=== PATIENT | female | born 1950 | race Caucasian/White ===

== ENCOUNTER → 2017-04-12 09:40 | Outpatient (CLI) | payer MEDICAID, SELFPAY ==
--- NOTE | 2017-04-12 09:44 | CA_ITS ---
PROCEDURE: 2-D M-mode and color Doppler study INDICATIONS FOR THE TEST: Chest pain COPD Heart MurmurX Tobacco SmokingEX Palpitations Fatigue Syncope Edema HypertensionXDiabetes Mellitus Rheumatic Fever SOBXXDOEXObesityX HyperlipidemiaX Family History HD Additional History AI PATIENT INFORMATION HEIGHT: 63 WEIGHT:229 GENDER: Female B/P:110/60 2-D/M-MODE INTERPRETATION: 2-D MEASUREMENTS OBSERVED VALUES IN CMS Right Ventricular Dimension (RVDd) 2.1 Interventricular Septum (Thickness)(IVsd) 1.3 Left Ventricular Internal Dimensions(LVIDd) 5.2 Left Ventricular Posterior Wall (Thickness)(LVPWd) 1.4 Aortic Root 3.4 Aortic Cusp Separation 1.8 Left Atrial Dimensions (LAD) 4.0 2D 1. Left atrium is mildly enlarged, left ventricle is normal size, there is mild concentric left ventricular hypertrophy present, visually estimated ejection fraction 55% with no obvious regional wall motion abnormality. 2. The right atrium and right ventricle are normal size and contractility. 3. The aortic valve is thickened and calcified leaflet continue to display good mobility. 4. The mitral and tricuspid valves are grossly normal. 5. The pulmonic valve is poorly visualized. 6. No significant pericardial effusion noted. DOPPLER INTERROGATION: Doppler interrogation of the aortic, mitral and tricuspid valvular presence of mild to moderate aortic, mild mitral and tricuspid regurgitation, tricuspid regurgitant jet velocity insufficient for calculation of the right ventricular systolic pressure, grade 1 diastolic dysfunction seen with tissue Doppler evidence of raised left atrial pressure. CONCLUSION: 1. Mildly enlarged left atrium, normal left ventricular size, mild concentric left ventricular hypertrophy, visually estimated ejection fraction 55% with no obvious regional wall motion abnormality, grade 1 diastolic dysfunction seen with tissue Doppler evidence of raised left atrial pressure. 2. Thickened and calcified aortic valve without Doppler evidence of mild aortic stenosis, there is mild to moderate aortic insufficiency seen, mean gradient across valve is 10 mmHg. 3. Mild mitral and tricuspid regurgitation 4. No significant pericardial effusion noted.
== END ==
PROVIDERS: PCP Family Medicine Geriatric Medicine; Visit Provider Internal Medicine
DX: I25.10 Atherosclerotic heart disease of native coronary artery without angina pectoris (principal); I10 Essential (primary) hypertension; I35.1 Nonrheumatic aortic (valve) insufficiency
CPT/HCPCS: 93306

== ENCOUNTER → 2017-05-11 09:03 | Outpatient (CLI) | payer MEDICAID, SELFPAY ==
[2017-05-11 09:45] LABS: Alanine Aminotransferase 27 U/L (12-78); Albumin Level 3.6 gm/dL (3.4-5.0); Alkaline Phosphatase 108 U/L (46-116); Aspartate Amino Transferase 17 U/L (15-37); Bilirubin,Direct 0.2 mg/dL (0.0-0.2); Bilirubin,Total 0.6 mg/dL (0.2-1.0); Chol/HDL Ratio 1.5 (1-3.5); Cholesterol 130 mg/dL (140-200); HDL Cholesterol 88 mg/dL (29-89); LDL Cholesterol 33 mg/dL (0-130); Total Protein,Serum 7.1 gm/dL (6.4-8.2); Triglycerides 46 mg/dL (30-200); VLDL Cholesterol 9 mg/dL (0-40)
== END ==
PROVIDERS: Physician Assistant; Visit Provider Internal Medicine
DX: I25.10 Atherosclerotic heart disease of native coronary artery without angina pectoris (principal); I10 Essential (primary) hypertension; I35.1 Nonrheumatic aortic (valve) insufficiency
CPT/HCPCS: 36415; 80061; 80076

== ENCOUNTER → 2017-10-11 10:46 | Outpatient (CLI) | payer MEDICARE, SELFPAY ==
[2017-10-11 11:54] LABS: Anion Gap 11.2 mEq/L (5-15); Blood Urea Nitrogen 35 mg/dL (7-18); Calcium 9.2 mg/dL (8.5-10.1); Carbon Dioxide 29 mmol/L (21.0-32.0); Chloride 107 mmol/L (98-107); Creatinine,Serum 2.28 mg/dL (0.55-1.02); Estimated Glomerular Filt Rate 21 ml/min (>60); GFR (African American) 26 ML/MIN (>60); Glucose 126 mg/dL (74-106); Magnesium 2.6 mg/dL (1.4-2.2); Potassium 5.2 mmoL/L (3.5-5.1); Sodium 142 mmol/L (136-145)
== END ==
PROVIDERS: PCP Family Medicine Geriatric Medicine; Visit Provider Internal Medicine
DX: I50.30 Unspecified diastolic (congestive) heart failure (principal)
CPT/HCPCS: 36415; 80048; 83735; 83880

== ENCOUNTER → 2017-10-31 10:47 | Outpatient (CLI) | payer MEDICARE, SELFPAY ==
[2017-10-31 11:35] LABS: Anion Gap 8.7 mEq/L (5-15); Blood Urea Nitrogen 27 mg/dL (7-18); Calcium 8.9 mg/dL (8.5-10.1); Carbon Dioxide 31 mmol/L (21.0-32.0); Chloride 109 mmol/L (98-107); Creatinine,Serum 1.64 mg/dL (0.55-1.02); Estimated Glomerular Filt Rate 31 ml/min (>60); GFR (African American) 38 ML/MIN (>60); Glucose 128 mg/dL (74-106); Potassium 4.7 mmoL/L (3.5-5.1); Sodium 144 mmol/L (136-145)
== END ==
PROVIDERS: PCP Family Medicine; Visit Provider Physician Assistant
DX: E78.5 Hyperlipidemia, unspecified (principal); I11.9 Hypertensive heart disease without heart failure; I25.10 Atherosclerotic heart disease of native coronary artery without angina pectoris; I34.0 Nonrheumatic mitral (valve) insufficiency; I35.1 Nonrheumatic aortic (valve) insufficiency; I50.30 Unspecified diastolic (congestive) heart failure; K21.9 Gastro-esophageal reflux disease without esophagitis; R60.0 Localized edema
CPT/HCPCS: 36415; 80048; 83880

== ENCOUNTER → 2017-11-09 11:39 | Outpatient (CLI) | payer MEDICARE, SELFPAY ==
[2017-11-09 13:20] LABS: Anion Gap 10.5 mEq/L (5-15); Blood Urea Nitrogen 28 mg/dL (7-18); Calcium 8.7 mg/dL (8.5-10.1); Carbon Dioxide 31 mmol/L (21.0-32.0); Chloride 107 mmol/L (98-107); Estimated Glomerular Filt Rate 28 ml/min (>60); GFR (African American) 34 ML/MIN (>60); Glucose 112 mg/dL (74-106); Potassium 4.5 mmoL/L (3.5-5.1); Sodium 144 mmol/L (136-145)
== END ==
PROVIDERS: PCP Family Medicine; Visit Provider Urology
DX: E78.5 Hyperlipidemia, unspecified (principal); I11.9 Hypertensive heart disease without heart failure; I25.10 Atherosclerotic heart disease of native coronary artery without angina pectoris; I34.0 Nonrheumatic mitral (valve) insufficiency; I35.1 Nonrheumatic aortic (valve) insufficiency; I50.30 Unspecified diastolic (congestive) heart failure; K21.9 Gastro-esophageal reflux disease without esophagitis; R60.0 Localized edema
CPT/HCPCS: 36415; 80048; 83880

== ENCOUNTER → 2017-11-14 08:00 | Outpatient (CLI) | payer MEDICARE, SELFPAY ==
[2017-11-14 09:11] LABS: Anion Gap 10.3 mEq/L (5-15); Blood Urea Nitrogen 31 mg/dL (7-18); Carbon Dioxide 33 mmol/L (21.0-32.0); Chloride 106 mmol/L (98-107); Creatinine,Serum 1.58 mg/dL (0.55-1.02); Estimated Glomerular Filt Rate 33 ml/min (>60); GFR (African American) 40 ML/MIN (>60); Glucose 124 mg/dL (74-106); Potassium 4.3 mmoL/L (3.5-5.1); Sodium 145 mmol/L (136-145)
== END ==
PROVIDERS: PCP Family Medicine; Visit Provider Urology
DX: I11.9 Hypertensive heart disease without heart failure (principal); E78.5 Hyperlipidemia, unspecified; I25.10 Atherosclerotic heart disease of native coronary artery without angina pectoris; I34.0 Nonrheumatic mitral (valve) insufficiency; I35.1 Nonrheumatic aortic (valve) insufficiency; I50.30 Unspecified diastolic (congestive) heart failure; K21.9 Gastro-esophageal reflux disease without esophagitis; R60.0 Localized edema
CPT/HCPCS: 36415; 80048; 83880

== ENCOUNTER → 2017-11-22 10:11 | Outpatient (CLI) | payer MEDICARE, SELFPAY ==
--- NOTE | 2017-11-22 10:15 | XR_ITS ---
EXAM: XR lumbar spine 2-3V HISTORY: Low back pain, right hip pain ITS.REASON: x ORDERING PHYSICIAN: ALEIDA Sanchez PATIENT AGE: 67 years COMPARISON: None FINDINGS: Moderate to severe degenerative disc disease is present in the lower thoracic spine with anterior osteophytes. There is mild degenerative disc disease at L2-L3 L3-L4 and L4-L5 with severe degenerative disc disease at L5-S1. There is 4 mm anterolisthesis of L4 on L5. Facet hypertrophic changes are also present at L4-5 and L5-S1 consistent with facet arthritic change. No acute fracture or dislocation. No lytic or blastic change. There is mild levoscoliosis of the thoracolumbar spine. IMPRESSION: 1. Multilevel degenerative disc disease of the thoracic and lumbar spine as described above with 4 mm anterolisthesis of L4 on L5 2. Facet arthritic changes L4-5 and L5-S1
== END ==
PROVIDERS: PCP Family Medicine; Visit Provider Physician Assistant
DX: G62.9 Polyneuropathy, unspecified (principal)
CPT/HCPCS: 72100

== ENCOUNTER → 2017-12-27 10:37 | Outpatient (CLI) | payer MEDICARE, SELFPAY ==
[2017-12-27 12:32] LABS: Anion Gap 12.6 mEq/L (5-15); Blood Urea Nitrogen 38 mg/dL (7-18); Calcium 8.9 mg/dL (8.5-10.1); Carbon Dioxide 29 mmol/L (21.0-32.0); Chloride 106 mmol/L (98-107); Estimated Glomerular Filt Rate 32 ml/min (>60); GFR (African American) 39 ML/MIN (>60); Glucose 122 mg/dL (74-106); Potassium 4.6 mmoL/L (3.5-5.1); Sodium 143 mmol/L (136-145)
== END ==
PROVIDERS: Visit Provider Urology
DX: I11.9 Hypertensive heart disease without heart failure (principal); I25.10 Atherosclerotic heart disease of native coronary artery without angina pectoris; I50.30 Unspecified diastolic (congestive) heart failure; R06.02 Shortness of breath
CPT/HCPCS: 36415; 80048; 83880

== ENCOUNTER → 2018-02-01 10:06 | Outpatient (CLI) | payer MEDICARE, SELFPAY ==
[2018-02-01 13:22] LABS: Blood Urea Nitrogen 25 mg/dL (7-18); Calcium 8.8 mg/dL (8.5-10.1); Carbon Dioxide 30 mmol/L (21.0-32.0); Chloride 103 mmol/L (98-107); Creatinine,Serum 1.45 mg/dL (0.55-1.02); Estimated Glomerular Filt Rate 36 ml/min (>60); GFR (African American) 44 ML/MIN (>60); Glucose 113 mg/dL (74-106); Sodium 142 mmol/L (136-145)
== END ==
PROVIDERS: Visit Provider Internal Medicine
DX: R06.02 Shortness of breath; E78.5 Hyperlipidemia, unspecified; I25.10 Atherosclerotic heart disease of native coronary artery without angina pectoris; I50.30 Unspecified diastolic (congestive) heart failure; I51.9 Heart disease, unspecified; R60.0 Localized edema; Z95.5 Presence of coronary angioplasty implant and graft
CPT/HCPCS: 36415; 80048; 83880

== ENCOUNTER → 2018-02-09 15:47 | Outpatient (CLI) | payer MEDICARE, SELFPAY ==
[2018-02-09 17:26] LABS: Anion Gap 14.5 mEq/L (5-15); Blood Urea Nitrogen 42 mg/dL (7-18); Calcium 9.1 mg/dL (8.5-10.1); Carbon Dioxide 30 mmol/L (21.0-32.0); Chloride 104 mmol/L (98-107); Creatinine,Serum 2.07 mg/dL (0.55-1.02); Estimated Glomerular Filt Rate 24 ml/min (>60); GFR (African American) 29 ML/MIN (>60); Glucose 134 mg/dL (74-106); Potassium 4.5 mmoL/L (3.5-5.1); Sodium 144 mmol/L (136-145)
== END ==
PROVIDERS: Visit Provider Urology
DX: R06.02 Shortness of breath; E78.5 Hyperlipidemia, unspecified; I25.10 Atherosclerotic heart disease of native coronary artery without angina pectoris; I51.9 Heart disease, unspecified; Z95.5 Presence of coronary angioplasty implant and graft
CPT/HCPCS: 36415; 80048; 83880

== ENCOUNTER → 2018-03-01 10:29 | Outpatient (CLI) | payer MEDICARE, MEDICAID, SELFPAY ==
[2018-03-01 13:15] LABS: Anion Gap 12.6 mEq/L (5-15); Blood Urea Nitrogen 29 mg/dL (7-18); Calcium 8.7 mg/dL (8.5-10.1); Carbon Dioxide 30 mmol/L (21.0-32.0); Chloride 106 mmol/L (98-107); Creatinine,Serum 1.49 mg/dL (0.55-1.02); Estimated Glomerular Filt Rate 35 ml/min (>60); GFR (African American) 42 ML/MIN (>60); Glucose 98 mg/dL (74-106); Potassium 4.6 mmoL/L (3.5-5.1); Sodium 144 mmol/L (136-145)
== END ==
PROVIDERS: Visit Provider Nurse Practitioner Family
DX: I25.10 Atherosclerotic heart disease of native coronary artery without angina pectoris; E78.5 Hyperlipidemia, unspecified; I11.9 Hypertensive heart disease without heart failure; I34.0 Nonrheumatic mitral (valve) insufficiency; I35.1 Nonrheumatic aortic (valve) insufficiency; I50.30 Unspecified diastolic (congestive) heart failure; R06.00 Dyspnea, unspecified; R60.0 Localized edema; R94.31 Abnormal electrocardiogram [ECG] [EKG]
CPT/HCPCS: 36415; 80048

== ENCOUNTER → 2018-04-04 09:45 | Outpatient (CLI) | payer MEDICARE, MEDICAID, SELFPAY ==
[2018-04-04 11:14] LABS: Blood Urea Nitrogen 25 mg/dL (7-18); Calcium 9.1 mg/dL (8.5-10.1); Carbon Dioxide 33 mmol/L (21.0-32.0); Chloride 104 mmol/L (98-107); Creatinine,Serum 1.57 mg/dL (0.55-1.02); Estimated Glomerular Filt Rate 33 ml/min (>60); GFR (African American) 40 ML/MIN (>60); Glucose 86 mg/dL (74-106); Sodium 143 mmol/L (136-145)
== END ==
PROVIDERS: Visit Provider Nurse Practitioner Family
DX: I11.9 Hypertensive heart disease without heart failure (principal); I25.10 Atherosclerotic heart disease of native coronary artery without angina pectoris; N28.9 Disorder of kidney and ureter, unspecified; R60.0 Localized edema; Z95.5 Presence of coronary angioplasty implant and graft
CPT/HCPCS: 36415; 80048

== ENCOUNTER → 2018-04-11 12:29 | Outpatient (CLI) | payer MEDICARE, MEDICAID, SELFPAY ==
[2018-04-11 13:31] LABS: Anion Gap 10.9 mEq/L (5-15); Blood Urea Nitrogen 46 mg/dL (7-18); Calcium 8.9 mg/dL (8.5-10.1); Carbon Dioxide 31 mmol/L (21.0-32.0); Chloride 105 mmol/L (98-107); Creatinine,Serum 1.91 mg/dL (0.55-1.02); Estimated Glomerular Filt Rate 26 ml/min (>60); GFR (African American) 32 ML/MIN (>60); Glucose 117 mg/dL (74-106); Potassium 3.9 mmoL/L (3.5-5.1); Sodium 143 mmol/L (136-145)
== END ==
PROVIDERS: Visit Provider Urology
DX: I34.0 Nonrheumatic mitral (valve) insufficiency (principal); I50.30 Unspecified diastolic (congestive) heart failure; I51.9 Heart disease, unspecified
CPT/HCPCS: 36415; 80048

== ENCOUNTER → 2018-04-20 11:50 | Outpatient (CLI) | payer MEDICARE, MEDICAID, SELFPAY ==
[2018-04-20 12:52] LABS: Anion Gap 10.6 mEq/L (5-15); Blood Urea Nitrogen 34 mg/dL (7-18); Calcium 8.9 mg/dL (8.5-10.1); Carbon Dioxide 31 mmol/L (21.0-32.0); Chloride 106 mmol/L (98-107); Creatinine,Serum 1.61 mg/dL (0.55-1.02); Estimated Glomerular Filt Rate 32 ml/min (>60); GFR (African American) 39 ML/MIN (>60); Glucose 108 mg/dL (74-106); Potassium 4.6 mmoL/L (3.5-5.1); Sodium 143 mmol/L (136-145)
== END ==
PROVIDERS: Visit Provider Internal Medicine
DX: E78.5 Hyperlipidemia, unspecified (principal); G62.9 Polyneuropathy, unspecified; I25.10 Atherosclerotic heart disease of native coronary artery without angina pectoris; I34.0 Nonrheumatic mitral (valve) insufficiency; I35.1 Nonrheumatic aortic (valve) insufficiency; I50.30 Unspecified diastolic (congestive) heart failure; I51.89 Other ill-defined heart diseases; K21.9 Gastro-esophageal reflux disease without esophagitis; N28.9 Disorder of kidney and ureter, unspecified; R60.0 Localized edema; Z95.5 Presence of coronary angioplasty implant and graft; Z87.891 Personal history of nicotine dependence
CPT/HCPCS: 36415; 80048

== ENCOUNTER → 2018-08-02 13:37 | Outpatient (CLI) | payer MEDICARE, MEDICAID, SELFPAY ==
--- NOTE | 2018-08-02 13:38 | CA_ITS ---
PROCEDURE: 2-D M-mode and color Doppler study INDICATIONS FOR THE TEST: Chest pain COPD Heart Murmur+ Tobacco SmokingEX Palpitations Fatigue Syncope Edema Hypertension+Diabetes Mellitus Rheumatic Fever SOB+WYLIE Obesity+Hyperlipidemia Family History HD Additional History NUMBNESS ARMS, NEW ONSET AFIB, CAD PATIENT INFORMATION HEIGHT: 63 WEIGHT:244 GENDER: B/P:145/53 2-D/M-MODE INTERPRETATION: 2-D MEASUREMENTS OBSERVED VALUES IN CMS Right Ventricular Dimension (RVDd) 3.0 Interventricular Septum (Thickness)(IVsd) 1.6 Left Ventricular Internal Dimensions(LVIDd) 4.6 Left Ventricular Posterior Wall (Thickness)(LVPWd) 1.0 Aortic Root 3.5 Aortic Cusp Separation 2.2 Left Atrial Dimensions (LAD) 3.8 2D 1. Left atrium is mildly enlarged, left ventricle is normal size, there is mild concentric left ventricular hypertrophy, visually estimated ejection fraction 55% with no regional wall motion abnormality. 2. The right atrium and right ventricle are mildly enlarged with normal contractility. 3. The aortic valve is thickened and calcified leaflet continue to display mobility. 4. The mitral and tricuspid valve are grossly normal. 5. The pulmonic valve is poorly visualized. 6. No significant pericardial effusion noted. DOPPLER INTERROGATION: Doppler interrogation of the aortic, mitral and tricuspid valvular presence of moderate aortic, mild mitral and tricuspid regurgitation, tricuspid regurgitation jet velocity is inadequate for calculation of the right ventricular systolic pressure. Doppler evidence of impaired LV relaxation seen. CONCLUSION: 1. Mildly enlarged left atrium, normal left ventricular size, mild concentric left ventricular hypertrophy, visually estimated ejection fraction 55% with no regional wall motion abnormality, Doppler evidence of impaired LV relaxation seen. 2. Mildly enlarged right ventricle with normal contractility. 3. Moderate aortic, mild mitral and tricuspid regurgitation 4. No significant pericardial effusion noted.
--- NOTE | 2018-08-02 13:38 | CI_ITS ---
Cerebrovascular Exam Indications: 782.0 Disturbance of skin sensation. IMPRESSIONS 1. The bilateral vertebral arteries are patent with normal antegrade flow. 2. Study suggests less than 20% stenosis involving the right internal carotid artery. 3. Study suggests 50-69% stenosis involving the left internal carotid artery, lower end of scale. 4. Right hypoechoic nodules, consider thyroid ultrasound. Carotid duplex study. Complete study and Doppler flow study including spectral analysis, color and chiang scale imaging. Height: Height: 160cm. Height: 63in. Weight: Weight: 110.7kg. Weight: 243.5lb. Body mass index: BMI: 43.2kg/m^2. Body surface area: BSA: 2.28m^2. Location: Vascular laboratory. Patient status: Outpatient. Incidental findings: A thyroid cyst in the right lobe is noted incidentally. Tables: Arterial flow: + +--------+--------+ Location V sys V ed + +--------+--------+ Right CCA - proximal 163cm/s 31.4cm/s + +--------+--------+ Right CCA - distal 107cm/s 24.4cm/s + +--------+--------+ Right ECA 67.6cm/s -------- + +--------+--------+ Right ICA - proximal 112cm/s 33.8cm/s + +--------+--------+ Right ICA - mid 117cm/s 44.8cm/s + +--------+--------+ Right ICA - distal 112cm/s 33cm/s + +--------+--------+ Right vertebral 22.7cm/s -------- + +--------+--------+ Left CCA - proximal 133cm/s 21cm/s + +--------+--------+ Left CCA - distal 120cm/s 23.7cm/s + +--------+--------+ Left ECA 144cm/s -------- + +--------+--------+ Left ICA - proximal 155cm/s 34.3cm/s + +--------+--------+ Left ICA - mid 129cm/s 32.6cm/s + +--------+--------+ Left ICA - distal 82.7cm/s 23.4cm/s + +--------+--------+ Left vertebral 24.8cm/s -------- + +--------+--------+ Velocity ratios: + + + + + + Right, V sys Right, V ed Left, V sys Left, V ed + + + + + + Max ICA/dist CCA 1.09 1.84 1.29 1.45 + + + + + + (Report amended ) Electronically signed by: Dominick Desai [id number]
== END ==
PROVIDERS: Visit Provider Internal Medicine
DX: R20.0 Anesthesia of skin; R20.2 Paresthesia of skin; R06.00 Dyspnea, unspecified; I65.23 Occlusion and stenosis of bilateral carotid arteries
CPT/HCPCS: 93306; 93880

== ENCOUNTER → 2018-11-21 07:44 | Outpatient (CLI) | payer MEDICARE, MEDICAID, SELFPAY ==
--- NOTE | 2018-11-21 | CA_ITS ---
APPROVED REPORT Exam: Pharmacologic Technologist: Chel Haider Ht: 5 ft 0 in Wt: 246 lbs BSA: 2.04 m2 HR: 75 bpm BP: 160/51 mmHg Indications: Chest pain, CAD Medical History Medications: Isosorbide,,,,, Losartan,,,,, Pantoprazole,,,,, Atorvastatin,,,,, HCTZ,,,,, ElIQUIS,,,,, CarTIA XT,,,,, Stress Test Details Test: LEXISCAN HR Resting HR: 87 bpm Max Heart Rate (APMHR): 154 bpm Max HR Achieved: 104 bpm Target HR (85% APMHR): 130 bpm % of APMHR: 67 Recovery HR: 72 bpm BP Resting BP: 160.0/51.0 mmHg Max BP: 160.0/51.0 mmHg Recovery BP: 148.0/55.0 mmHg ECG Clinical Exercise duration: 04:00 min Highest Stage Achieved: Exercise capacity: 1.0 METs Stress ECG Conclusion Resting ECG: Normal sinus rhythm, PACs, PVC, right axis deviation, low voltage QRS. Aminophyline 100 mg slow IV given. Symptoms: Mild shortness of air, nausea, malaise, dizzy. No chest pain. Arrhythmias/Ectopy: Moderately frequent PACs and PVCs. ST-T Changes: No significant changes. Conclusion: Unremarkable Lexiscan Stress. Myoview images reported separately. Test Summary REST . . . . . . . Sitting REST 14:04 . . 87 . 160/ 51 . . Stage 1 . . . . . . . Myoview Injected Stage 1 01:00 . . 96 . . . . Stage 2 01:00 . . 103 . . . . Stage 3 . . . . . . . Nausea Stage 3 01:00 . . 95 . 125/ 51 . . Stage 4 01:00 . . 96 . 124/ 55 . Stop exercise at 04:00 RECOVERY 01:00 . . 91 . . . . RECOVERY 02:00 . . 86 . 141/ 54 . . RECOVERY 03:00 . . 76 . 141/ 54 . . RECOVERY 04:00 . . 73 . 141/ 54 . . RECOVERY 05:00 . . 79 . 128/ 50 . . RECOVERY 06:00 . . 71 . 128/ 50 . . RECOVERY 07:00 . . 76 . 148/ 55 . . RECOVERY 07:24 . . 73 . 148/ 55 . . Electronically signed by : Sanju Perez, 11/21/2018 20:27:38
--- NOTE | 2018-11-21 07:45 | NM_ITS ---
APPROVED REPORT Exam: Nuclear Stress Test Indication: chest pain, fatique Patient Location: Outpatient Stress Tech: Chel Haider [place] Tech:GERMAN Rosado RT(R)(N) Ht: 5 ft 0 in Wt: 246 lbs Bra Size: 48dd HR: 75 bpm BP: 160/51 mmHg BSA: 2.04 m2 History: chest pain, fatique Procedure: Patient received a 0.4 mg of intravenous Lexiscan, resting heart rate 75 bpm, resting blood pressure 160/51 mmHg, with Lexiscan maximum heart rate achived was 100 bpm which is Less than 85 % of the maximum predicted heart rate and blood pressure was 148/55 mmHg. With Lexiscan, patient denied any complaint of chest pain. Electrocardiogram Resting electro cardiogram showed sinus rhythm with premature atrial complex and ventricular complexes, nonspecific ST-T changes. With Lexiscan there is less than 1.[address] segment depression noted from the baseline EKG. The EKG portion of the Lexiscan Myoview is nondiagnostic. Cardiac Stress and Resting SPECT Images: Cardiac Stress and Resting SPECT images were obtained using technetium 99m Myoview 32.9 mCi stress and 10.88 mCi at rest. Gated SPECT with analysis of segmental wall motion and calculation of the ejection fraction also done. Cardiac stress and resting SPECT images show mild fixed defect in the anterior wall with normal contractility gated SPECT is likely secondary to soft tissue attenuation, no reversible ischemia seen. Computer derived ejection fraction is over 65% with no regional wall motion abnormality, right ventricule is normal size and contractility. Conclusion: 1. The EKG portion of the Lexiscan Myoview is nondiagnostic. 2. A mild fixed defect seen in the anterior wall with normal contractility gated SPECT is likely secondary to soft tissue attenuation, no reversible ischemia seen. Computer derived ejection fraction is over 65% with no regional wall motion abnormality, right ventricle is normal size and contractility. 3. Likely normal myocardial perfusion imaging. Electronically signed by : Sanju Perez, 11/21/2018 20:30:51
--- NOTE | 2018-11-21 10:27 | HMH.ITSHM ---
Current Home Medications as stated by this patient Ayleen Gonzalez or mortician supplies sales representative. [] cartia eliquis hydrochlort isosorb losartan atorvastatin pantoprazole
== END ==
PROVIDERS: PCP Family Medicine; Visit Provider Nurse Practitioner Family
DX: I25.10 Atherosclerotic heart disease of native coronary artery without angina pectoris (principal); R07.9 Chest pain, unspecified; Z95.5 Presence of coronary angioplasty implant and graft; R94.31 Abnormal electrocardiogram [ECG] [EKG]
CPT/HCPCS: 78452; 93017; A9502; J2785

== ENCOUNTER → 2019-02-05 10:49 | Outpatient (CLI) | payer MEDICARE, MEDICAID, SELFPAY ==
--- NOTE | 2019-02-05 10:49 | CA_ITS ---
APPROVED REPORT Planer Off Bearer: DIEGO Laterality: Bilateral Indications: stenosis Doppler Spectral Velocity Analysis ECA (R) 61.00/9.00 cm/s ECA (L) 110.80/8.70 cm/s dICA (R) 183.20/48.70 cm/s dICA (L) 102.30/25.90 cm/s Dina (R) 161.40/42.30 cm/s Dina (L) 168.50/43.20 cm/s pICA (R) 166.60/55.10 cm/s pICA (L) 163.60/41.70 cm/s dCCA (R) 95.20/16.00 cm/s dCCA (L) 121.10/17.60 cm/s pCCA (R) 120.80/24.60 cm/s pCCA (L) 115.20/15.30 cm/s Vert (R) 69.40/12.00 cm/s Vert (L) 59.70/22.20 cm/s ICA/CCA 1.93 ICA/CCA 1.39 Findings Duplex evaluation demonstrates stenosis of the right proximal internal carotid artery <20% with PSV <140 cm/sec, EDV <100 cm/sec, and IC/CC Ratio <4.0.Duplex evaluation demonstrates stenosis of the left proximal internal carotid artery in the range of 50-69% with PSV =140 cm/sec, EDV <100 cm/sec, and IC/CC Ratio <4.0. Conclusion Duplex evaluation demonstrates stenosis of the right proximal internal carotid artery <20% with PSV <140 cm/sec, EDV <100 cm/sec, and IC/CC Ratio <4.0.Duplex evaluation demonstrates stenosis of the left proximal internal carotid artery in the range of 50-69% with PSV =140 cm/sec, EDV <100 cm/sec, and IC/CC Ratio <4.0. Electronically signed by : Amari Galarza, 02/06/2019 11:01:58
== END ==
PROVIDERS: PCP Nurse Practitioner Family; Visit Provider Urology
DX: I65.23 Occlusion and stenosis of bilateral carotid arteries (principal)
CPT/HCPCS: 93880

== ENCOUNTER → 2019-03-08 14:38 | Outpatient (CLI) | payer MEDICARE, MEDICAID, SELFPAY ==
--- NOTE | 2019-03-08 14:38 | CT_ITS ---
PROCEDURE: CT HEAD/BRAIN WO CON CLINICAL INDICATION: rule out CVA COMPARISON: No exams were available for comparison TECHNIQUE: Axial images obtained. All CT scans at the facility use one or more dose reduction, viz: automated exposure control, ma/kV adjustment per patient size (including targeted exams where dose is matched to indication, i.e. head), or iterative reconstruction technique. FINDINGS: No midline shift, mass effect, intracranial hemorrhage, hydrocephalus, or extra-axial fluid collection is evident. An approximately 2 x 5 millimeter fat density along the anterior midline falx is most consistent with a benign lipoma. The calvarium has an unremarkable appearance. No mastoid effusion. No sinus air-fluid level. IMPRESSION: No acute intracranial finding Dictated by: Kamari Briones 03/08/2019 15:54 Electronically signed by Kamari Briones in [facility] 03/08/2019 15:54
== END ==
PROVIDERS: PCP Nurse Practitioner Family; Visit Provider Internal Medicine
DX: H53.8 Other visual disturbances (principal); I48.0 Paroxysmal atrial fibrillation; I65.23 Occlusion and stenosis of bilateral carotid arteries; R20.0 Anesthesia of skin; R41.0 Disorientation, unspecified
CPT/HCPCS: 70450

== ENCOUNTER → 2019-09-14 13:39 | Outpatient (CLI) | payer MEDICARE, MEDICAID, SELFPAY ==
--- NOTE | 2019-09-14 14:07 | US_ITS ---
PROCEDURE: US EXTREMITY LT LIMITED CLINICAL INDICATION: mass on arm Palpable area in the left upper arm. COMPARISON: No exams were available for comparison FINDINGS: A superficial ultrasound of the left upper arm was performed with real-time, static grayscale and color Doppler imaging technique. Corresponding to the area of palpable concern in the left upper arm a 3.9 x 1.7 x 3.7 centimeter mixed hypo/isoechoic relatively well-circumscribed non-specific soft tissue mass is seen with no demonstrable color Doppler vascular flow, probably a lipoma, although alternative etiologies not ruled out. 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 Recommend surgical consultation/biopsy for tissue diagnosis. Dictated by: Dann Hallman 09/14/2019 15:37 Electronically signed by Dann Hallman in [facility] 09/14/2019 15:37
== END ==
PROVIDERS: PCP Emergency Medicine; Visit Provider Physician Assistant
DX: R22.9 Localized swelling, mass and lump, unspecified (principal)
CPT/HCPCS: 76882

== ENCOUNTER → 2019-10-08 11:40 | Outpatient (CLI) | payer MEDICARE, MEDICAID, SELFPAY ==
[2019-10-08 12:49] LABS: Chloride 100 mmol/L (98-107); Sodium 140 mmol/L (136-145)
[2019-10-08 12:50] LABS: Potassium 3.6 mmoL/L (3.5-5.1)
[2019-10-08 12:52] LABS: Alanine Aminotransferase 13 U/L (12-78); Alkaline Phosphatase 123 U/L (38-126); Anion Gap 13.6 mEq/L (5-15); Aspartate Amino Transferase 18 U/L (14-36); Bilirubin,Indirect 0.6 mg/dL (0.0-0.9); Bilirubin,Total 0.6 mg/dl (0.2-1.3); Bilirubin,Unconjugated 0.6 mg/dL (0.0-1.1); Blood Urea Nitrogen 41 mg/dl (7-17); Calcium 9.6 mg/dl (8.4-10.2); Carbon Dioxide 30 mmol/L (22.0-30.0); Cholesterol 129 mg/dl (140-200); Estimated Glomerular Filt Rate 30 ml/min (>60); GFR (African American) 36 ML/MIN (>60); Glucose 108 mg/dl (74-100); Triglycerides 77 mg/dl (30-150); VLDL Cholesterol 15 mg/dL (0-40)
[2019-10-08 12:53] LABS: Albumin Level 4.1 g/dl (3.5-5.0); Chol/HDL Ratio 1.8 (1-3.5); HDL Cholesterol 73 mg/dl (40-60); Total Protein,Serum 6.8 g/dl (6.3-8.2)
[2019-10-08 13:04] LABS: Direct LDL Cholesterol 42.25 mg/dL (100-129)
== END ==
PROVIDERS: Visit Provider Urology
DX: E11.9 Type 2 diabetes mellitus without complications (principal); E66.9 Obesity, unspecified; G62.9 Polyneuropathy, unspecified; H91.90 Unspecified hearing loss, unspecified ear; I10 Essential (primary) hypertension; I25.10 Atherosclerotic heart disease of native coronary artery without angina pectoris; N28.9 Disorder of kidney and ureter, unspecified; Z79.84 Long term (current) use of oral hypoglycemic drugs
CPT/HCPCS: 36415; 80048; 80061; 80076

== ENCOUNTER → 2019-10-15 12:05 | Outpatient (CLI) | payer MEDICARE, MEDICAID, SELFPAY ==
--- NOTE | 2019-10-15 12:07 | CA_ITS ---
APPROVED REPORT Auto Repair Shop Manager: HENOK Laterality: Bilateral Study Quality: Good Indications: cyril Doppler Spectral Velocity Analysis dICA (R) 140.70/29.40 cm/s dICA (L) 130.90/25.30 cm/s Dina (R) 203.80/44.50 cm/s Dina (L) 115.10/21.90 cm/s pICA (R) 173.00/36.90 cm/s pICA (L) 97.40/21.90 cm/s dCCA (R) 104.20/21.30 cm/s dCCA (L) 84.30/9.60 cm/s pCCA (R) 86.70/23.10 cm/s pCCA (L) 91.90/14.40 cm/s Vert (R) 64.10/3.90 cm/s Vert (L) 102.80/26.80 cm/s ICA/CCA 2.00 ICA/CCA 1.60 Findings Duplex evaluation demonstrates stenosis of the right proximal internal carotid artery in the range of 50-69% with PSV =140 cm/sec, EDV <100 cm/sec, and IC/CC Ratio <4.0.Duplex evaluation demonstrates stenosis of the left proximal internal carotid artery <20% with PSV <140 cm/sec, EDV <100 cm/sec, and IC/CC Ratio <4.0.Antegrade flow seen bilateral vertebral arteries. Conclusion Duplex evaluation demonstrates stenosis of the right proximal internal carotid artery in the range of 50-69% with PSV =140 cm/sec, EDV <100 cm/sec, and IC/CC Ratio <4.0.Duplex evaluation demonstrates stenosis of the left proximal internal carotid artery <20% with PSV <140 cm/sec, EDV <100 cm/sec, and IC/CC Ratio <4.0.Antegrade flow seen bilateral vertebral arteries. Electronically signed by : Dominick Desai MD 10/15/2019 17:06:27
--- NOTE | 2019-10-15 14:16 | MR_ITS ---
PROCEDURE: MR HUMERUS LT WO CON CLINICAL INDICATION: lipoma LUMP ON LT UPPER HUMERUS WITH PAIN. PUT MARKER ON KNOT. PT WAS IN PAIN. SENT OVER BEST POSSIBLE IMAGES. PRIOR US 09-14-19 COMPARISON: US US EXTREMITY LT LIMITED from 09/14/2019 TECHNIQUE: Routine multiplanar multi echo sequences are performed without gadolinium enhancement. FINDINGS: Multi planar multi echo sequences are performed the left humerus in regards to a palpable mass. A marker is placed at the area of palpable concern. There is only fat signal intensity deep to the palpable area of concern consistent with a lipoma. No soft tissue mass or bony abnormality apparent. No abnormal fluid collection. IMPRESSION: Palpable abnormality corresponds to a lipoma. Dictated by: Dominick Desai MD 10/16/2019 12:16 Dominick Desai MD in [place] 10/16/2019 12:16
== END ==
PROVIDERS: PCP Emergency Medicine; Visit Provider Urology
DX: I65.23 Occlusion and stenosis of bilateral carotid arteries; D17.9 Benign lipomatous neoplasm, unspecified; I50.30 Unspecified diastolic (congestive) heart failure; E11.9 Type 2 diabetes mellitus without complications; E66.9 Obesity, unspecified; G62.9 Polyneuropathy, unspecified; H91.90 Unspecified hearing loss, unspecified ear; I25.10 Atherosclerotic heart disease of native coronary artery without angina pectoris; I48.91 Unspecified atrial fibrillation; N28.9 Disorder of kidney and ureter, unspecified; R20.0 Anesthesia of skin
CPT/HCPCS: 73218; 93880

== ENCOUNTER → 2019-11-09 10:34 | Outpatient (CLI) | payer MEDICARE, MEDICAID, SELFPAY ==
--- NOTE | 2019-11-09 10:40 | CA_ITS ---
APPROVED REPORT EXAM: Comprehensive 2D, Doppler, and color-flow Echocardiogram Carpet Yarn Winder Operator: Nu Vieyra RVT Ht: 5 ft 3 in Wt: 224lbs BSA: 2.03 BP: 1554/51 mmHg Indications: a-fib,murmur,soa,htn,obesity,ex smoker 2D Dimensions LVOT 1.99 cm (M/F) 1.5-2.5 M-Mode Dimensions RVDd 2.50 cm (0.9-2.6) LVDd 4.99 cm (3.5-5.7) LVDs 3.38 cm (3.5-5.7) IVSd 1.21 cm (0.6-1.1) PWd 0.56 cm (0.6-1.1) EF (Teich) 60.20% FS 32.30% EDV (Teich) 117.70 mL ESV (Teich) 46.80 mL LV Diastology E/A Ratio 0.78 Mitral Valve MV A Velocity 93.00 (40-130 cm/s) Left Ventricle Left atrium is mildly enlarged, left ventricle is normal size, mild concentric left ventricular hypertrophy, visually estimated ejection fraction 55% with no regional wall motion abnormality, grade 1 diastolic dysfunction seen without tissue Doppler evidence of raise left atrial pressure. Right Ventricle Right atrium and right ventricle are mildly enlarged with normal contractility. Aortic Valve Aortic valve is thickened and calcified, there is no aortic stenosis, there is moderate aortic insufficiency. Mitral Valve Mitral valve is grossly normal, there is mild mitral regurgitation. Tricuspid Valve Tricuspid valve is grossly normal, there is mild tricuspid regurgitation, tricuspid regurgitation jet velocity is inadequate for calculation of the right ventricular systolic pressure. Pulmonic Valve Pulmonic valve is poorly visualized. Great Vessels Aortic root is normal size. Pericardium No significant pericardial effusion noted. Conclusion 1. Mild biatrial enlargement, normal left ventricular size, mild concentric left ventricular hypertrophy, visually estimated ejection fraction 55% with no regional wall motion abnormality, grade 1 diastolic dysfunction seen without tissue Doppler evidence of raise left atrial pressure. 2. Mildly enlarged right ventricle with normal contractility. 3. Thickened and calcified aortic valve without aortic stenosis, there is moderate aortic insufficiency. 4. Mild mitral and tricuspid regurgitation. 5. No significant pericardial effusion noted. Electronically signed by : Sanju Perez, 11/09/2019 13:54:09
[2019-11-09 11:05] LABS: Anion Gap 11.3 mEq/L (5-15); Blood Urea Nitrogen 30 mg/dl (7-17); Calcium 9.8 mg/dl (8.4-10.2); Carbon Dioxide 28 mmol/L (22.0-30.0); Chloride 105 mmol/L (98-107); Estimated Glomerular Filt Rate 32 ml/min (>60); GFR (African American) 39 ML/MIN (>60); Glucose 124 mg/dl (74-100); Potassium 4.3 mmoL/L (3.5-5.1); Sodium 140 mmol/L (136-145)
== END ==
PROVIDERS: PCP Emergency Medicine; Visit Provider Nurse Practitioner Family
DX: I25.118 Atherosclerotic heart disease of native coronary artery with other forms of angina pectoris (principal); I35.1 Nonrheumatic aortic (valve) insufficiency; I48.0 Paroxysmal atrial fibrillation; I50.32 Chronic diastolic (congestive) heart failure
CPT/HCPCS: 36415; 80048; 93306

== ENCOUNTER → 2020-02-04 11:54 | Outpatient (CLI) | payer MEDICARE, MEDICAID, SELFPAY ==
[2020-02-04 13:25] LABS: Chloride 105 mmol/L (98-107); Potassium 4.8 mmoL/L (3.5-5.1); Sodium 140 mmol/L (136-145)
[2020-02-04 13:28] LABS: Anion Gap 12.8 mEq/L (5-15); Blood Urea Nitrogen 36 mg/dl (7-17); Carbon Dioxide 27 mmol/L (22.0-30.0); Estimated Glomerular Filt Rate 28 ml/min (>60); GFR (African American) 34 ML/MIN (>60)
[2020-02-04 13:29] LABS: Calcium 9.9 mg/dl (8.4-10.2); Glucose 125 mg/dl (74-100)
[2020-02-04 13:37] LABS: NT Pro Brain Natriuretic Pep. 2290 pg/mL (0-125)
== END ==
PROVIDERS: Visit Provider Urology
DX: E78.5 Hyperlipidemia, unspecified (principal); I25.10 Atherosclerotic heart disease of native coronary artery without angina pectoris; I35.1 Nonrheumatic aortic (valve) insufficiency; I48.91 Unspecified atrial fibrillation; I50.30 Unspecified diastolic (congestive) heart failure; I65.29 Occlusion and stenosis of unspecified carotid artery; K21.9 Gastro-esophageal reflux disease without esophagitis; Z95.5 Presence of coronary angioplasty implant and graft
CPT/HCPCS: 36415; 80048; 83880

== ENCOUNTER → 2020-02-11 10:32 | Outpatient (CLI) | payer MEDICARE, MEDICAID, SELFPAY ==
[2020-02-11 11:39] LABS: Chloride 106 mmol/L (98-107)
[2020-02-11 11:40] LABS: Potassium 5.1 mmoL/L (3.5-5.1); Sodium 140 mmol/L (136-145)
[2020-02-11 11:43] LABS: Anion Gap 11.1 mEq/L (5-15); Blood Urea Nitrogen 37 mg/dl (7-17); Calcium 9.8 mg/dl (8.4-10.2); Carbon Dioxide 28 mmol/L (22.0-30.0); Estimated Glomerular Filt Rate 30 ml/min (>60); GFR (African American) 36 ML/MIN (>60); Glucose 110 mg/dl (74-100)
== END ==
PROVIDERS: Visit Provider Urology
DX: E78.5 Hyperlipidemia, unspecified (principal); I11.9 Hypertensive heart disease without heart failure; I25.10 Atherosclerotic heart disease of native coronary artery without angina pectoris; I34.0 Nonrheumatic mitral (valve) insufficiency; I35.1 Nonrheumatic aortic (valve) insufficiency; I48.91 Unspecified atrial fibrillation; I50.30 Unspecified diastolic (congestive) heart failure; I65.29 Occlusion and stenosis of unspecified carotid artery
CPT/HCPCS: 36415; 80048

== ENCOUNTER → 2020-02-25 16:56 | Outpatient (CLI) | payer MEDICARE, MEDICAID, SELFPAY ==
[2020-02-25 17:21] LABS: Basophils # 0.1 K/mm3 (0-0.2); Basophils % 0.6 % (0.1-2.0); Chloride 105 mmol/L (98-107); Eosinophils # 0.3 K/mm3 (0.0-0.4); Eosinophils % 3.2 % (0.1-12.0); Hemoglobin 11.3 g/dL (12.2-16.2); Lymphocytes # 1.6 K/mm3 (0.7-4.5); Lymphocytes % 15.5 % (10-50); Mean Corpuscular HGB Conc 31.3 g/dL (31.8-35.4); Mean Corpuscular Hemoglobin 31.3 pg (27.0-31.2); Mean Platelet Volume 10.2 fl (7.4-10.4); Monocytes # 0.6 K/mm3 (0.1-1.0); Monocytes % 5.6 % (1.7-9.3); Neutrophils # 7.6 K/mm3 (1.8-7.8); Neutrophils % 75.1 % (37.0-80.0); Platelet Count 231 K/mm3 (142-424); Potassium 4.6 mmoL/L (3.5-5.1); Red Cell Distribution Width 13.5 % (11.5-17.5); Sodium 141 mmol/L (136-145); White Blood Count 10.2 K/mm3 (4.8-10.8)
[2020-02-25 17:23] LABS: Alanine Aminotransferase 23 U/L (12-78); Aspartate Amino Transferase 18 U/L (14-36); Blood Urea Nitrogen 33 mg/dl (7-17); Estimated Glomerular Filt Rate 35 ml/min (>60); GFR (African American) 42 ML/MIN (>60)
[2020-02-25 17:24] LABS: Albumin Level 4.1 g/dl (3.5-5.0); Albumin/Globulin Ratio 1.5 (1.1-1.8); Alkaline Phosphatase 116 U/L (38-126); Anion Gap 11.6 mEq/L (5-15); Bilirubin,Total 0.8 mg/dl (0.2-1.3); Calcium 9.7 mg/dl (8.4-10.2); Carbon Dioxide 29 mmol/L (22.0-30.0); Chol/HDL Ratio 1.7 (1-3.5); Cholesterol 114 mg/dl (140-200); Globulin 2.8 g/dL (1.3-3.2); Glucose 114 mg/dl (74-100); HDL Cholesterol 68 mg/dl (40-60); Total Protein,Serum 6.9 g/dl (6.3-8.2); Triglycerides 72 mg/dl (30-150); VLDL Cholesterol 14 mg/dL (0-40)
[2020-02-25 17:40] LABS: Direct LDL Cholesterol < 30.00 mg/dL (100-129)
[2020-02-25 17:52] LABS: Hemoglobin A1C 6.3 % (4.0-6.0)
[2020-02-25 17:55] LABS: 25-OH Vitamin D, Total 32.4 ng/mL (30-100)
[2020-02-25 17:56] LABS: Free T4 (Free Thyroxine) 1.25 ng/dl (0.78-2.19); Thyroid Stimulating Hormone 1.01 uIU/mL (0.465-4.68)
[2020-02-26 09:32] LABS: Iron 72 ug/dL (37-170)
[2020-02-26 09:42] LABS: Total Iron Binding Capacity 343 ug/dL (265-497)
[2020-02-26 10:42] LABS: Vitamin B12 540 pg/mL (239-931)
== END ==
PROVIDERS: Visit Provider Physician Assistant
DX: E11.9 Type 2 diabetes mellitus without complications (principal); E78.5 Hyperlipidemia, unspecified; N28.9 Disorder of kidney and ureter, unspecified; R60.0 Localized edema; R69 Illness, unspecified; J32.9 Chronic sinusitis, unspecified; R89.9 Unspecified abnormal finding in specimens from other organs, systems and tissues; Z68.41 Body mass index [BMI] 40.0-44.9, adult
CPT/HCPCS: 80053; 80061; 82043; 82306; 82607; 83036; 83540; 83550; 84439; 84443; 85025

== ENCOUNTER → 2020-03-19 11:12 | Outpatient (CLI) | payer MEDICARE, MEDICAID, SELFPAY ==
[2020-03-19 11:19] LABS: Microscopic, Urine URINE MICROSCOPIC (MICROSCOPIC)
[2020-03-19 11:48] LABS: Appearance,Urine CLEAR (Clear); Blood, Urine Negative (Negative); Color,Urine YELLOW (Yellow); Glucose,Urine (UA) Negative (Negative); Ketones,Urine Negative (Negative); Leukocyte Esterase,Urine TRACE (Negative); Nitrate,Urine Negative (Negative); PH,Urine 5.5 (5.0-8.5); Protein,Urine TRACE (Negative); Specific Gravity, Urine >= 1.030 (1.005-1.030); Urobilinogen,Urine 0.2 EU/dl (0.2)
[2020-03-19 12:05] LABS: Bilirubin,Urine 1+ (Negative)
[2020-03-19 12:16] LABS: Albumin Level 4.4 g/dl (3.5-5.0); Anion Gap 7.7 mEq/L (5-15); Blood Urea Nitrogen 37 mg/dl (7-17); Carbon Dioxide 29 mmol/L (22.0-30.0); Chloride 105 mmol/L (98-107); Estimated Glomerular Filt Rate 35 ml/min (>60); GFR (African American) 42 ML/MIN (>60); Glucose 132 mg/dl (74-100); Phosphorous 3.5 mg/dl (2.5-4.5); Potassium 4.7 mmoL/L (3.5-5.1); Sodium 137 mmol/L (136-145)
== END ==
PROVIDERS: Visit Provider Internal Medicine Nephrology
DX: I10 Essential (primary) hypertension (principal)
CPT/HCPCS: 36415; 80069; 81001

== ENCOUNTER → 2020-03-26 09:49 | Outpatient (CLI) | payer MEDICARE, MEDICAID, SELFPAY ==
--- NOTE | 2020-03-26 09:50 | CA_ITS ---
APPROVED REPORT Bench Worker Hollow Handle: Nu Vieyra RVT Laterality: Bilateral Study Quality: Adequate Indications: Carotid stenosis Risk Factors Hypertension: Doppler Spectral Velocity Analysis ECA (R) 82.30/10.60 cm/s ECA (L) 107.90/6.70 cm/s dICA (R) 91.70/24.70 cm/s dICA (L) 154.10/38.50 cm/s Dina (R) 151.80/37.40 cm/s Dina (L) 168.50/35.60 cm/s pICA (R) 182.00/15.00 cm/s pICA (L) 186.80/38.50 cm/s dCCA (R) 68.40/16.00 cm/s dCCA (L) 81.90/11.60 cm/s pCCA (R) 104.80/18.20 cm/s pCCA (L) 110.80/18.30 cm/s Vert (R) 37.60/9.60 cm/s Vert (L) 53.90/16.40 cm/s ICA/CCA 1.98 ICA/CCA 2.05 Findings Study suggests 50-69% stenosis of the right internal cartoid artery unchanged from the 10/15/19 study. Study suggests 50-69% stenosis of the left internal cartoid artery worsened from the study. Antegrade flow seen bilateral vertebral arteries. 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 Study suggests 50-69% stenosis of the left internal cartoid artery worsened from the study. Antegrade flow seen bilateral vertebral arteries. Electronically signed by : Dominick Desai MD 03/26/2020 14:43:12
== END ==
PROVIDERS: PCP Emergency Medicine; Visit Provider Urology
DX: E78.5 Hyperlipidemia, unspecified (principal); I11.9 Hypertensive heart disease without heart failure; I25.10 Atherosclerotic heart disease of native coronary artery without angina pectoris; I35.1 Nonrheumatic aortic (valve) insufficiency; I48.91 Unspecified atrial fibrillation; I50.30 Unspecified diastolic (congestive) heart failure; K21.9 Gastro-esophageal reflux disease without esophagitis; R09.89 Other specified symptoms and signs involving the circulatory and respiratory systems; Z95.5 Presence of coronary angioplasty implant and graft; I65.23 Occlusion and stenosis of bilateral carotid arteries
CPT/HCPCS: 93880

== ENCOUNTER → 2020-04-16 13:09 | Outpatient (CLI) | payer MEDICARE, MEDICAID, SELFPAY ==
[2020-04-16 13:15] LABS: Microscopic, Urine URINE MICROSCOPIC (MICROSCOPIC)
[2020-04-16 13:49] LABS: Appearance,Urine CLEAR (Clear); Bilirubin,Urine Negative (Negative); Blood, Urine Negative (Negative); Color,Urine YELLOW (Yellow); Glucose,Urine (UA) Negative (Negative); Ketones,Urine Negative (Negative); Leukocyte Esterase,Urine Negative (Negative); Nitrate,Urine Negative (Negative); Protein,Urine Negative (Negative); Specific Gravity, Urine 1.015 (1.005-1.030); Urobilinogen,Urine 0.2 EU/dl (0.2)
[2020-04-16 14:04] LABS: Squamous Epithelial Cell,Urine Occasional #/hpf (0-5)
[2020-04-16 14:10] LABS: Creatinine,Urine Random 97 mg/dL (Not Estab.)
[2020-04-16 14:14] LABS: Hematocrit 38.3 % (37.0-47.0); Hemoglobin 12.1 g/dL (12.2-16.2); Mean Corpuscular HGB Conc 31.7 g/dL (31.8-35.4); Mean Corpuscular Hemoglobin 29.8 pg (27.0-31.2); Platelet Count 229 K/mm3 (142-424); Red Blood Count 4.08 M/mm3 (4.20-5.40); Red Cell Distribution Width 12.4 % (11.5-17.5); White Blood Count 10.7 K/mm3 (4.8-10.8)
[2020-04-16 14:43] LABS: Alanine Aminotransferase 16 U/L (12-78); Albumin Level 4.4 g/dl (3.5-5.0); Albumin/Globulin Ratio 1.4 (1.1-1.8); Alkaline Phosphatase 135 U/L (38-126); Anion Gap 12.6 mEq/L (5-15); Aspartate Amino Transferase 21 U/L (14-36); Bilirubin,Total 0.9 mg/dl (0.2-1.3); Blood Urea Nitrogen 35 mg/dl (7-17); Carbon Dioxide 33 mmol/L (22.0-30.0); Chloride 100 mmol/L (98-107); Estimated Glomerular Filt Rate 32 ml/min (>60); GFR (African American) 39 ML/MIN (>60); Globulin 3.1 g/dL (1.3-3.2); Glucose 132 mg/dl (74-100); Potassium 3.6 mmoL/L (3.5-5.1); Sodium 142 mmol/L (136-145); Total Protein,Serum 7.5 g/dl (6.3-8.2); Uric Acid 9.4 mg/dl (2.5-6.2)
[2020-04-16 14:54] LABS: Intact Parathyroid Hormone 151.2 pg/mL (7.5-53.5)
[2020-04-16 14:58] LABS: 25-OH Vitamin D, Total 13.7 ng/mL (30-100)
[2020-04-16 15:12] LABS: Thyroid Stimulating Hormone 0.78 uIU/mL (0.465-4.68)
== END ==
PROVIDERS: Visit Provider Internal Medicine Nephrology
DX: N17.9 Acute kidney failure, unspecified (principal); N18.30 Chronic kidney disease, stage 3 unspecified; I48.20 Chronic atrial fibrillation, unspecified; I50.33 Acute on chronic diastolic (congestive) heart failure; E55.9 Vitamin D deficiency, unspecified
CPT/HCPCS: 36415; 80053; 81001; 82306; 82330; 82570; 83970; 84155; 84443; 84550; 85014; 85018; 85048; 85049

== ENCOUNTER → 2020-05-07 14:59 | Outpatient (CLI) | payer MEDICARE, MEDICAID, SELFPAY ==
--- NOTE | 2020-05-07 15:03 | US_ITS ---
PROCEDURE: US KIDNEY CLINICAL INDICATION: CKD COMPARISON: No exams were available for comparison FINDINGS: The right kidney is [id number]. No hydronephrosis, cortical thinning, or renal mass or perinephric fluid collection is evident. There is a 2 cm right renal cyst which appears benign The left kidney is [id number]. No hydronephrosis or renal mass or perinephric fluid collection is evident. There is a 1 cm left renal cyst. There is mild left-sided renal cortical thinning IMPRESSION: Small bilateral renal cysts. Mild left renal cortical thinning Dictated by: Dominick Desai MD 05/07/2020 16:44 Dominick Desai MD in [facility] 05/07/2020 16:44
[2020-05-07 15:12] LABS: Microscopic, Urine URINE MICROSCOPIC (MICROSCOPIC)
[2020-05-07 15:38] LABS: Appearance,Urine CLEAR (Clear); Bilirubin,Urine Negative (Negative); Blood, Urine Negative (Negative); Color,Urine YELLOW (Yellow); Glucose,Urine (UA) Negative (Negative); Ketones,Urine Negative (Negative); Leukocyte Esterase,Urine Negative (Negative); Nitrate,Urine Negative (Negative); Protein,Urine Negative (Negative); Specific Gravity, Urine 1.015 (1.005-1.030); Urobilinogen,Urine 0.2 EU/dl (0.2)
[2020-05-07 15:44] LABS: Creatinine,Urine Random 44 mg/dL (Not Estab.)
[2020-05-07 15:48] LABS: Basophils # 0.1 K/mm3 (0-0.2); Basophils % 0.7 % (0.1-2.0); Eosinophils # 0.3 K/mm3 (0.0-0.4); Hematocrit 35.4 % (37.0-47.0); Hemoglobin 11.6 g/dL (12.2-16.2); Lymphocytes # 2.3 K/mm3 (0.7-4.5); Lymphocytes % 21.9 % (10-50); Mean Corpuscular HGB Conc 32.9 g/dL (31.8-35.4); Mean Corpuscular Hemoglobin 29.7 pg (27.0-31.2); Mean Corpuscular Volume 90.1 fl (81-99); Mean Platelet Volume 9.3 fl (7.4-10.4); Monocytes # 0.8 K/mm3 (0.1-1.0); Monocytes % 7.3 % (1.7-9.3); Neutrophils # 6.9 K/mm3 (1.8-7.8); Platelet Count 271 K/mm3 (142-424); Red Blood Count 3.92 M/mm3 (4.20-5.40); Red Cell Distribution Width 12.5 % (11.5-17.5); White Blood Count 10.3 K/mm3 (4.8-10.8)
[2020-05-07 15:53] LABS: Bacteria,Urine Trace /lpf; WBC,Urine Occasional #/hpf (0-3)
[2020-05-07 16:40] LABS: Albumin Level 4.1 g/dl (3.5-5.0); Anion Gap 12.2 mEq/L (5-15); Blood Urea Nitrogen 36 mg/dl (7-17); Calcium 9.5 mg/dl (8.4-10.2); Carbon Dioxide 32 mmol/L (22.0-30.0); Chloride 97 mmol/L (98-107); Estimated Glomerular Filt Rate 25 ml/min (>60); GFR (African American) 30 ML/MIN (>60); Glucose 121 mg/dl (74-100); Phosphorous 4.1 mg/dl (2.5-4.5); Potassium 3.2 mmoL/L (3.5-5.1); Sodium 138 mmol/L (136-145)
[2020-05-07 16:52] LABS: Intact Parathyroid Hormone 152.1 pg/mL (7.5-53.5)
[2020-05-07 18:12] LABS: 25-OH Vitamin D, Total < 12.8 ng/mL (30-100)
== END ==
PROVIDERS: PCP Emergency Medicine; Visit Provider Internal Medicine Nephrology
DX: N18.30 Chronic kidney disease, stage 3 unspecified (principal)
CPT/HCPCS: 36415; 76770; 80069; 81001; 82306; 82570; 83970; 84155; 85025

== ENCOUNTER → 2020-05-19 09:44 | Outpatient (POV) | payer MEDICARE, MEDICAID, SELFPAY | PROVIDERS: Visit Provider Internal Medicine Nephrology | DX: Z00.00 Encounter for general adult medical examination without abnormal findings (principal) ==

== ENCOUNTER → 2020-09-08 13:53 | Outpatient (CLI) | payer MEDICARE, MEDICAID, SELFPAY ==
[2020-09-08 15:00] LABS: Anion Gap 12.9 mEq/L (5-15); Blood Urea Nitrogen 28 mg/dl (7-17); Calcium 8.8 mg/dl (8.4-10.2); Carbon Dioxide 33 mmol/L (22.0-30.0); Chloride 101 mmol/L (98-107); Estimated Glomerular Filt Rate 30 ml/min (>60); GFR (African American) 36 ML/MIN (>60); Glucose 115 mg/dl (74-100); Potassium 3.9 mmoL/L (3.5-5.1); Sodium 143 mmol/L (136-145)
== END ==
PROVIDERS: Visit Provider Emergency Medicine
DX: E11.9 Type 2 diabetes mellitus without complications (principal); Z79.84 Long term (current) use of oral hypoglycemic drugs
CPT/HCPCS: 80048

== ENCOUNTER → 2020-09-22 09:56 | Outpatient (CLI) | payer MEDICARE, MEDICAID, SELFPAY ==
[2020-09-22 10:27] LABS: Creatinine,Urine Random 53 mg/dL (Not Estab.)
[2020-09-22 10:30] LABS: Microalbumin/Creatinine Ratio 11.5
[2020-09-22 11:19] LABS: 25-OH Vitamin D, Total 37.3 ng/mL (30-100)
[2020-09-22 11:42] LABS: Blood Urea Nitrogen 29 mg/dl (7-17); Calcium 8.9 mg/dl (8.4-10.2); Carbon Dioxide 33 mmol/L (22.0-30.0); Chloride 98 mmol/L (98-107); Estimated Glomerular Filt Rate 35 ml/min (>60); GFR (African American) 42 ML/MIN (>60); Glucose 116 mg/dl (74-100); Sodium 140 mmol/L (136-145)
== END ==
PROVIDERS: Visit Provider Internal Medicine Nephrology
DX: N18.30 Chronic kidney disease, stage 3 unspecified (principal)
CPT/HCPCS: 36415; 80069; 82043; 82306; 82570

== ENCOUNTER → 2020-09-26 08:25 | Outpatient (CLI) | payer MEDICARE, MEDICAID, SELFPAY ==
--- NOTE | 2020-09-26 08:28 | XR_ITS ---
PROCEDURE: XR DEXA AXIAL SKELETON CLINICAL HISTORY: HYPERPARATHYROIDISM,POST MENOPAUSAL COMPARISON: No exams were available for comparison FINDINGS: The right hip BMD is 0.607 with a T-score of -2.2. The left hip BMD is 0.612 neck with a T-score of -2.7. The lumbar spine BMD is 1.077 with a T-score of 0.3. IMPRESSION: This patient is considered osteoporotic according to the World Health Organization criteria. Fracture risk is high. Treatment is advised. Based on these results a follow-up exam is recommended in 1 year. Dictated by: Dominick Desai MD 09/26/2020 16:47 Dominick Desai MD in [facility] 09/26/2020 16:47
== END ==
PROVIDERS: PCP Emergency Medicine; Visit Provider Internal Medicine Nephrology
DX: E21.3 Hyperparathyroidism, unspecified (principal); Z78.0 Asymptomatic menopausal state
CPT/HCPCS: 77080

== ENCOUNTER → 2020-10-13 13:42 | Outpatient (POV) | payer MEDICARE, MEDICAID, SELFPAY | PROVIDERS: Visit Provider Internal Medicine Nephrology | DX: Z00.00 Encounter for general adult medical examination without abnormal findings (principal) ==

== ENCOUNTER → 2020-11-04 09:17 | Outpatient (CLI) | payer MEDICARE, MEDICAID, SELFPAY ==
--- NOTE | 2020-11-04 09:18 | CA_ITS ---
APPROVED REPORT Medical Anthropology Director: Nu Vieyra RVT Laterality: Bilateral Study Quality: Good Indications: Carotid stenosis Risk Factors Hypertension: Doppler Spectral Velocity Analysis ECA (R) 105.00/ cm/s ECA (L) 97.40/ cm/s dICA (R) 138.00/40.90 cm/s dICA (L) 206.00/66.00 cm/s Dina (R) 170.00/45.60 cm/s Dina (L) 186.00/37.70 cm/s pICA (R) 152.00/45.60 cm/s pICA (L) 153.00/32.20 cm/s dCCA (R) 107.00/25.10 cm/s dCCA (L) 91.10/14.90 cm/s pCCA (R) 103.00/18.90 cm/s pCCA (L) 108.00/11.80 cm/s Vert (R) 44.80/13.40 cm/s Vert (L) 44.80/14.10 cm/s ICA/CCA 1.58 ICA/CCA 2.26 Findings Study suggests 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 Study suggests 50-69% stenosis of the left internal cartoid artery. Antegrade flow seen bilateral vertebral arteries. 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 Study suggests 50-69% stenosis of the left internal cartoid artery. Antegrade flow seen bilateral vertebral arteries. Electronically signed by : Dominick Desai MD 11/04/2020 17:29:01
--- NOTE | 2020-11-04 09:18 | CA_ITS ---
APPROVED REPORT EXAM: Comprehensive 2D, Doppler, and color-flow Echocardiogram Cementer Machine Joiner: IMAN Ferrera, RVS Ht: 5 ft 3 in Wt: 222lbs BSA: 2.02 BP: 133/57 mmHg Rhythm: Atrial Fibrillation Indications: SOA. Murmur, Afib, CAD-stent, Post-chemo, Hepatitis Echo Enhancing Agent Comments: Large body habitus. 2D Dimensions IVSd 1.21 cm LVEF (Visual) 53.90 % PWd 1.12 cm LA Volume 69.30 mL LVDd 4.97 cm LA Volume Index 34.30 mL/m2 (M/F) 16-34 LVDs 3.58 cm LVOT 3.82 cm (M/F) 1.5-2.5 M-Mode Dimensions LA Diam 4.40 cm (1.9-4.0) Ao Diam 3.39 cm (2.0-3.7) TAPSE 2.11 (<1.7) LV Diastology E Decel Time 267.00 (160-240 msec) E/A Ratio 1.44 MED E' 7.30 (< 7 cm/sec) MED A' 3.20 cm/s E'/MED E' Ratio 18.99 (>14) LAT E' 10.60 (<10 cm/sec) LAT A' 4.90 cm/s E/LAT E' Ratio 13.08 (>14) Aortic Valve LVOT Max 120.00 (70-110 cm/s) LVOT VTI 25.94 cm AoV Peak Juliocesar. 240.00 (50-130 cm/s) AI PHT 554.00 ms AO Peak GR. 23.10 mmHg AO Mean GR. 11.60 (<5 mmHg) AO VTI 55.42 (18-25 cm) ED (VTI) 5.36 (2.5-4.5 cm2) Mitral Valve MV E Max Juliocesar. 139.00 (40-130 cm/s) MV A Velocity 96.00 (40-130 cm/s) E/A Ratio 1.44 MV Decel. Time 267.00 (160-240 ms) MV PHT 78.00 ms Pulmonary Valve PV Peak Velocity 217.00 (50-150 cm/s) AL End VMAX 209.00 cm/s Tricuspid Valve TR P. Velocity 272.00 cm/s RAP Estimate 10.00 mmHg RVSP 39.60 mmHg Left Ventricle Technically difficult study because of the patient factors and poor acoustic windows. Left atrium is mildly enlarged, left ventricle is normal size, mild concentric left ventricular hypertrophy, visually estimated ejection fraction 55% with no regional wall motion abnormality, diastolic parameters are inconclusive. Right Ventricle Right atrium and right ventricle mildly enlarged with normal contractility. Aortic Valve Aortic valve is thickened and calcified with mild aortic stenosis, there is moderate aortic insufficiency, mean gradient across valve is 12 mmHg. Valve area is not accurately calculated. Mitral Valve Mitral valve leaflets are minimally thickened, there is mild mitral regurgitation. Tricuspid Valve Tricuspid grossly normal, there is mild tricuspid regurgitation, tricuspid regurgitation jet velocity is inadequate for calculation of the right ventricular systolic pressure. Pulmonic Valve Pulmonic valve is poorly visualized. Great Vessels Aortic root is normal size. Pericardium No significant pericardial effusion noted. Conclusion 1. Mildly enlarged left atrium, normal left ventricular size, mild concentric left ventricular hypertrophy, visually estimated ejection fraction 55% with no regional wall motion abnormality, diastolic parameters are inconclusive. 2. Thickened and calcified aortic valve with mild aortic stenosis, there is moderate aortic insufficiency. 3. Mild mitral and tricuspid regurgitation. 4. No significant pericardial effusion noted. Electronically signed by : Sanju Perez MD 11/04/2020 19:27:59
== END ==
PROVIDERS: PCP Emergency Medicine; Visit Provider Urology
DX: R20.0 Anesthesia of skin; I35.1 Nonrheumatic aortic (valve) insufficiency; R06.02 Shortness of breath; I65.23 Occlusion and stenosis of bilateral carotid arteries
CPT/HCPCS: 93306; 93880

== ENCOUNTER → 2020-12-08 07:37 | Outpatient (CLI) | payer MEDICARE, MEDICAID, SELFPAY | PROVIDERS: PCP Emergency Medicine; Visit Provider Ophthalmology | DX: Z01.812 Encounter for preprocedural laboratory examination (principal); Z11.52 Encounter for screening for COVID-19 | CPT/HCPCS: C9803; U0003; U0005 ==

== ENCOUNTER 2020-12-09 06:58 | Day surgery (SDC) | payer MEDICARE, MEDICAID, SELFPAY ==
[2020-12-08 10:31] VITALS: BMI 42.3
[2020-12-09] VITALS (7 sets, daily range): BP systolic 143–169; BP diastolic 64–78; PULSE 70–92; RESP 18; TEMP 36.6–36.8; O2SAT 96–99
== END 2020-12-09 09:15 | disposition home or self-care (01) ==
LOC: OR 06:59
PROVIDERS: PCP Emergency Medicine; Visit Provider Ophthalmology
DX: H25.813 Combined forms of age-related cataract, bilateral (principal); H53.149 Visual discomfort, unspecified; H02.831 Dermatochalasis of right upper eyelid; H02.834 Dermatochalasis of left upper eyelid; I10 Essential (primary) hypertension; Z88.0 Allergy status to penicillin; Z88.1 Allergy status to other antibiotic agents
CPT/HCPCS: 66984; V2632

== ENCOUNTER → 2020-12-22 09:07 | Outpatient (CLI) | payer MEDICARE, MEDICAID, SELFPAY | PROVIDERS: Visit Provider Ophthalmology | DX: Z01.812 Encounter for preprocedural laboratory examination (principal); Z11.52 Encounter for screening for COVID-19 | CPT/HCPCS: C9803; U0003; U0005 ==

== ENCOUNTER 2020-12-23 08:52 | Day surgery (SDC) | payer MEDICARE, MEDICAID, SELFPAY ==
[2020-12-19 12:30] VITALS: BMI 41.1
[2020-12-23 09:57] VITALS: BP 135/57; PULSE 84; RESP 18; TEMP 36.6; O2SAT 98
[2020-12-23 11:23] VITALS: BP 144/65; PULSE 84; RESP 18; O2SAT 98
[2020-12-23 11:28] VITALS: BP 152/70; PULSE 82; RESP 18; O2SAT 100
[2020-12-23 11:33] VITALS: BP 150/65; PULSE 84; RESP 18; O2SAT 100
[2020-12-23 11:38] VITALS: BP 131/63; PULSE 88; RESP 18; O2SAT 100
[2020-12-23 11:45] VITALS: BP 155/75; PULSE 75; RESP 16; TEMP 36.7; O2SAT 98
[2021-11-12 10:54] LABS: POC Glucose,Bedside 106 (70-110)
== END 2020-12-23 11:55 | disposition home or self-care (01) ==
LOC: OR 08:54
PROVIDERS: PCP Emergency Medicine; Visit Provider Ophthalmology
DX: H26.9 Unspecified cataract (principal); H35.52 Pigmentary retinal dystrophy; H50.15 Alternating exotropia; E11.9 Type 2 diabetes mellitus without complications; I48.91 Unspecified atrial fibrillation; I25.10 Atherosclerotic heart disease of native coronary artery without angina pectoris; K21.9 Gastro-esophageal reflux disease without esophagitis; E78.5 Hyperlipidemia, unspecified; Z79.899 Other long term (current) drug therapy; Z95.5 Presence of coronary angioplasty implant and graft; Z88.6 Allergy status to analgesic agent; Z88.0 Allergy status to penicillin; Z88.7 Allergy status to serum and vaccine
CPT/HCPCS: 66984; 82962; V2632

== ENCOUNTER → 2020-12-31 18:49 | Outpatient (CLI) | payer MEDICARE, MEDICAID, SELFPAY ==
[2020-12-31 19:13] LABS: Basophils # 0.1 K/mm3 (0-0.2); Eosinophils # 0.4 K/mm3 (0.0-0.4); Eosinophils % 4.3 % (0.1-12.0); Hematocrit 37.8 % (37.0-47.0); Hemoglobin 12.1 g/dL (12.2-16.2); Lymphocytes # 1.8 K/mm3 (0.7-4.5); Mean Corpuscular Hemoglobin 29.1 pg (27.0-31.2); Mean Corpuscular Volume 90.9 fl (81-99); Monocytes # 0.6 K/mm3 (0.1-1.0); Neutrophils # 6.6 K/mm3 (1.8-7.8); Neutrophils % 69.8 % (37.0-80.0); Platelet Count 237 K/mm3 (142-424); Red Blood Count 4.16 M/mm3 (4.20-5.40); Red Cell Distribution Width 13.8 % (11.5-17.5); White Blood Count 9.4 K/mm3 (4.8-10.8)
[2020-12-31 19:41] LABS: Hemoglobin A1C 6.5 % (4.0-6.0)
[2020-12-31 20:20] LABS: Alanine Aminotransferase 15 U/L (12-78); Albumin Level 4.1 g/dl (3.5-5.0); Albumin/Globulin Ratio 1.5 (1.1-1.8); Alkaline Phosphatase 156 U/L (38-126); Anion Gap 13.5 mEq/L (5-15); Aspartate Amino Transferase 20 U/L (14-36); Bilirubin,Total 0.6 mg/dl (0.2-1.3); Blood Urea Nitrogen 28 mg/dl (7-17); Calcium 8.6 mg/dl (8.4-10.2); Carbon Dioxide 32 mmol/L (22.0-30.0); Chloride 99 mmol/L (98-107); Chol/HDL Ratio 1.9 (1-3.5); Cholesterol 140 mg/dl (140-200); Estimated Glomerular Filt Rate 35 ml/min (>60); GFR (African American) 42 ML/MIN (>60); Globulin 2.8 g/dL (1.3-3.2); Glucose 109 mg/dl (74-100); HDL Cholesterol 72 mg/dl (40-60); Potassium 4.5 mmoL/L (3.5-5.1); Sodium 140 mmol/L (136-145); Total Protein,Serum 6.9 g/dl (6.3-8.2); Triglycerides 84 mg/dl (30-150); VLDL Cholesterol 17 mg/dL (0-40)
[2020-12-31 20:31] LABS: Direct LDL Cholesterol 49.16 mg/dL (100-129)
[2020-12-31 20:39] LABS: Free T4 (Free Thyroxine) 1.75 ng/dl (0.78-2.19)
[2020-12-31 20:53] LABS: Thyroid Stimulating Hormone 0.97 uIU/mL (0.465-4.68)
== END ==
PROVIDERS: Visit Provider Emergency Medicine
DX: E11.9 Type 2 diabetes mellitus without complications (principal); Z79.899 Other long term (current) drug therapy; Z79.84 Long term (current) use of oral hypoglycemic drugs
CPT/HCPCS: 80053; 80061; 83036; 84439; 84443; 85025

== ENCOUNTER → 2021-04-01 14:31 | Outpatient (CLI) | payer MEDICARE, MEDICAID, SELFPAY | PROVIDERS: Visit Provider Physician Assistant | DX: N39.0 Urinary tract infection, site not specified (principal); R41.0 Disorientation, unspecified | CPT/HCPCS: 87086 ==

== ENCOUNTER → 2021-04-20 09:28 | Outpatient (POV) | payer MEDICARE, MEDICAID, SELFPAY | PROVIDERS: Visit Provider Internal Medicine Nephrology | DX: Z00.00 Encounter for general adult medical examination without abnormal findings (principal) ==

== ENCOUNTER → 2021-04-20 10:08 | Outpatient (CLI) | payer MEDICARE, MEDICAID, SELFPAY ==
[2021-04-20 11:19] LABS: Albumin Level 4.2 g/dl (3.5-5.0); Anion Gap 14.4 mEq/L (5-15); Blood Urea Nitrogen 29 mg/dl (7-17); Calcium 8.7 mg/dl (8.4-10.2); Carbon Dioxide 29 mmol/L (22.0-30.0); Chloride 100 mmol/L (98-107); Estimated Glomerular Filt Rate 41 ml/min (>60); GFR (African American) 49 ML/MIN (>60); Glucose 141 mg/dl (74-100); Phosphorous 3.6 mg/dl (2.5-4.5); Potassium 3.4 mmoL/L (3.5-5.1); Sodium 140 mmol/L (136-145)
[2021-04-20 11:32] LABS: Intact Parathyroid Hormone 305.6 pg/mL (7.5-53.5)
[2021-04-20 11:36] LABS: 25-OH Vitamin D, Total 18.9 ng/mL (30-100)
[2021-04-23 14:19] LABS: Tandem-R Ostase 16.2 ug/L (.)
[2021-04-30 20:21] LABS: C-Telopeptide Serum 355 pg/mL (.)
== END ==
PROVIDERS: Visit Provider Internal Medicine Nephrology
DX: N18.32 Chronic kidney disease, stage 3b (principal); M81.0 Age-related osteoporosis without current pathological fracture
CPT/HCPCS: 36415; 80069; 82306; 82523; 83970; 84080

== ENCOUNTER → 2021-05-25 12:54 | Outpatient (CLI) | payer MEDICARE, MEDICAID, SELFPAY ==
--- NOTE | 2021-05-25 12:56 | CA_ITS ---
APPROVED REPORT EXAM: Comprehensive 2D, Doppler, and color-flow Echocardiogram Sales Trainee: IMAN Ferrera, RVS Ht: 5 ft 2 in Wt: 224lbs BSA: 2.01 BP: 133/73 mmHg Indications: CAD, AI, MR, PI, TR, PAF, MURMUR, ABN EKG 2D Dimensions IVSd 1.01 cm LVEF (Visual) 66.10 % PWd 1.13 cm LA Volume 70.60 mL LVDd 5.41 cm LA Volume Index 35.10 mL/m2 (M/F) 16-34 LVDs 3.42 cm Aortic Root 3.15 cm Left Atrium 3.84 cm LVOT 2.23 cm (M/F) 1.5-2.5 M-Mode Dimensions RVDd 1.82 cm (0.9-2.6) LA Diam 4.04 cm (1.9-4.0) LVDd 6.34 cm (3.5-5.7) Ao Diam 3.54 cm (2.0-3.7) LVDs 3.99 cm (3.5-5.7) IVSd 1.14 cm (0.6-1.1) PWd 0.80 cm (0.6-1.1) EF (Teich) 65.90% EPSs 0.80 cm FS 37.10% EDV (Teich) 204.10 mL TAPSE 2.26 (<1.7) ESV (Teich) 69.60 mL LV Diastology E Decel Time 233.00 (160-240 msec) E/A Ratio 3.41 MED E' 11.60 (< 7 cm/sec) MED A' 5.40 cm/s E'/MED E' Ratio 17.44 (>14) LAT E' 9.10 (<10 cm/sec) LAT A' 4.60 cm/s E/LAT E' Ratio 22.23 (>14) Pulm Vein s 18.00 cm/sec Pulm Vein d 30.00 cm/sec Ar-A Duration 107.00 msec Aortic Valve LVOT Max 146.00 (70-110 cm/s) LVOT VTI 33.35 cm AoV Peak Juliocesar. 236.00 (50-130 cm/s) AI PHT 465.00 ms AO Peak GR. 22.30 mmHg AO Mean GR. 11.00 (<5 mmHg) AO VTI 51.00 (18-25 cm) ED (VTI) 2.55 (2.5-4.5 cm2) Mitral Valve MV A Velocity 59.00 (40-130 cm/s) E/A Ratio 3.41 MV Decel. Time 233.00 (160-240 ms) MV Mean Gr. 3.80 (<2mmHg) MV PHT 70.00 ms Pulmonary Valve PV Peak Velocity 78.00 (50-150 cm/s) DC End VMAX 221.00 cm/s Tricuspid Valve TR P. Velocity 248.00 cm/s RAP Estimate 10.00 mmHg RVSP 34.60 mmHg Left Ventricle Left atrium is mildly enlarged, left ventricle is normal size mild concentric left ventricular hypertrophy, estimated ejection fraction 55% with no regional wall motion abnormality, diastolic parameters are inconclusive. Doppler evidence of atrial ventricular end-diastolic pressure. Right Ventricle Right atrium and right ventricle are normal size and contractility. Aortic Valve Aortic valve is thickened and calcified mean gradient across aortic valve is 11 mmHg presents mild aortic stenosis, there is moderate to severe aortic insufficiency. Mitral Valve Mitral valve leaflets are minimally thickened, there is no mitral stenosis, there is moderate mitral regurgitation. Tricuspid Valve Tricuspid valve is grossly normal, there is mild tricuspid regurgitation, tricuspid regurgitation jet velocity is inadequate for calculation of the right ventricular systolic pressure. Pulmonic Valve Pulmonic valve is poorly visualized. Great Vessels Aortic root is normal size. Inferior vena cava is poorly visualized. Pericardium No significant pericardial effusion. Conclusion 1. Enlarged left atrium, normal left ventricular size, mild concentric left ventricular hypertrophy, estimated ejection fraction 55% with no regional wall motion abnormality, diastolic parameters are inconclusive. 2. Thickened and calcified aortic valve with mild aortic stenosis, there is moderate to severe aortic insufficiency. 3. Moderate mitral and mild tricuspid regurgitation. 4. No significant pericardial effusion. 5. Inferior vena cava is poorly visualized. Electronically signed by : Sanju Perez MD 05/25/2021 21:10:22
== END ==
PROVIDERS: PCP Emergency Medicine; Visit Provider Nurse Practitioner Family
DX: E78.5 Hyperlipidemia, unspecified (principal); I11.9 Hypertensive heart disease without heart failure; I25.10 Atherosclerotic heart disease of native coronary artery without angina pectoris; I35.1 Nonrheumatic aortic (valve) insufficiency; I48.91 Unspecified atrial fibrillation; I65.29 Occlusion and stenosis of unspecified carotid artery
CPT/HCPCS: 93306

== ENCOUNTER → 2021-11-17 13:32 | Outpatient (CLI) | payer MEDICARE, MEDICAID, SELFPAY ==
--- NOTE | 2021-11-17 13:36 | CA_ITS ---
APPROVED REPORT EXAM: Comprehensive 2D, Doppler, and color-flow Echocardiogram Marketing Operations Analyst: Blanca Colindres RT(R) Ht: 5 ft 2 in Wt: 226lbs BSA: 2.01 BP: 130/47 mmHg Indications: SOA, DM, CAD, AFIB, abn EKG, DD, GERD, AI, HTN, WYLIE, hyperlipidemia. 2D Dimensions LVOT 1.86 cm (M/F) 1.5-2.5 LA Volume 87.40 mL LA Volume Index 43.48 mL/m2 (M/F) 16-34 M-Mode Dimensions RVDd 2.68 cm (0.9-2.6) LA Diam 4.98 cm (1.9-4.0) LVDd 5.17 cm (3.5-5.7) Ao Diam 2.96 cm (2.0-3.7) LVDs 3.66 cm (3.5-5.7) IVSd 0.85 cm (0.6-1.1) PWd 0.85 cm (0.6-1.1) EF (Teich) 55.70% FS 29.20% EDV (Teich) 127.80 mL ESV (Teich) 56.60 mL Aortic Valve LVOT Max 137.00 (70-110 cm/s) LVOT VTI 30.25 cm AoV Peak Juliocesar. 192.00 (50-130 cm/s) AI PHT 435.00 ms AO Peak GR. 14.70 mmHg AO Mean GR. 7.40 (<5 mmHg) AO VTI 40.40 (18-25 cm) ED (VTI) 2.03 (2.5-4.5 cm2) Tricuspid Valve TR P. Velocity 229.00 cm/s RAP Estimate 10.00 mmHg RVSP 31.00 mmHg Left Ventricle Left atrium is mildly enlarged, left ventricle is normal size mild concentric left ventricular hypertrophy, estimated ejection fraction 55% with no regional wall motion abnormality, diastolic parameters are inconclusive. Right Ventricle Right atrium is mildly enlarged, right ventricle is normal size and contractility. Aortic Valve Aortic valve is thickened and calcified there is no aortic stenosis, there is aortic insufficiency present which is likely moderate to severe range. If clinically indicated transesophageal echocardiogram is recommended for further evaluation Mitral Valve Mitral valve leaflets are minimally thickened, there is mild to moderate mitral regurgitation. Tricuspid Valve Tricuspid valve grossly normal, there is mild tricuspid regurgitation, tricuspid regurgitation jet velocity is inadequate for calculation of the right ventricular systolic pressure. Pulmonic Valve Pulmonic valve is poorly visualized. Great Vessels Aortic root is normal size. Inferior vena cava is poorly visualized. Pericardium No significant pericardial effusion noted. Conclusion 1. Biatrial enlargement, normal left ventricular size, estimated ejection fraction 55% with no regional wall motion abnormality, diastolic parameters are inconclusive. 2. Thickened and calcified aortic valve without aortic stenosis there is moderate to severe aortic insufficiency present, if clinically indicated a transesophageal echocardiogram is recommended for further evaluation. 3. Mild to moderate mitral and mild tricuspid regurgitation. 4. No significant pericardial effusion noted. 5. Inferior vena cava is poorly visualized. Electronically signed by : Sanju Preez MD 11/18/2021 06:20:33
== END ==
PROVIDERS: PCP Emergency Medicine; Visit Provider Physician Assistant
DX: E78.2 Mixed hyperlipidemia (principal); I11.0 Hypertensive heart disease with heart failure; I25.10 Atherosclerotic heart disease of native coronary artery without angina pectoris; I34.0 Nonrheumatic mitral (valve) insufficiency; I35.1 Nonrheumatic aortic (valve) insufficiency; I50.32 Chronic diastolic (congestive) heart failure; I65.23 Occlusion and stenosis of bilateral carotid arteries; K21.9 Gastro-esophageal reflux disease without esophagitis; R06.00 Dyspnea, unspecified; R06.01 Orthopnea; R06.02 Shortness of breath; R60.0 Localized edema; R94.31 Abnormal electrocardiogram [ECG] [EKG]; Z95.5 Presence of coronary angioplasty implant and graft
CPT/HCPCS: 93306

== ENCOUNTER → 2021-11-25 15:09 | Outpatient (CLI) | payer MEDICARE, MEDICAID, SELFPAY ==
[2021-11-25 16:28] LABS: Basophils # 0.1 K/mm3 (0-0.2); Basophils % 0.5 % (0.1-2.0); Eosinophils # 0.3 K/mm3 (0.0-0.4); Eosinophils % 2.9 % (0.1-12.0); Hematocrit 36.4 % (37.0-47.0); Hemoglobin 11.7 g/dL (12.2-16.2); Lymphocytes # 2.1 K/mm3 (0.7-4.5); Lymphocytes % 22.1 % (10-50); Mean Corpuscular HGB Conc 32.2 g/dL (31.8-35.4); Mean Corpuscular Hemoglobin 29.1 pg (27.0-31.2); Mean Corpuscular Volume 90.4 fl (81-99); Mean Platelet Volume 9.8 fl (7.4-10.4); Monocytes # 0.7 K/mm3 (0.1-1.0); Monocytes % 7.6 % (1.7-9.3); Neutrophils # 6.3 K/mm3 (1.8-7.8); Neutrophils % 66.9 % (37.0-80.0); Platelet Count 232 K/mm3 (142-424); Red Blood Count 4.03 M/mm3 (4.20-5.40); Red Cell Distribution Width 14.2 % (11.5-17.5); White Blood Count 9.4 K/mm3 (4.8-10.8)
[2021-11-25 16:59] LABS: Alanine Aminotransferase 19 U/L (12-78); Albumin Level 3.8 g/dl (3.5-5.0); Alkaline Phosphatase 150 U/L (38-126); Anion Gap 12.2 mEq/L (5-15); Aspartate Amino Transferase 23 U/L (14-36); Bilirubin,Direct 0.1 mg/dl (0.0-0.4); Bilirubin,Indirect 0.4 mg/dL (0.0-0.9); Bilirubin,Total 0.5 mg/dl (0.2-1.3); Bilirubin,Unconjugated 0.5 mg/dL (0.0-1.1); Blood Urea Nitrogen 29 mg/dl (7-17); Carbon Dioxide 31 mmol/L (22.0-30.0); Chloride 99 mmol/L (98-107); Cholesterol 122 mg/dl (140-200); Estimated Glomerular Filt Rate 32 ml/min (>60); GFR (African American) 39 ML/MIN (>60); Glucose 107 mg/dl (74-100); HDL Cholesterol 62 mg/dl (40-60); Magnesium 2.2 mg/dl (1.6-2.3); Potassium 4.2 mmoL/L (3.5-5.1); Sodium 138 mmol/L (136-145); Total Protein,Serum 6.6 g/dl (6.3-8.2); Triglycerides 98 mg/dl (30-150); VLDL Cholesterol 20 mg/dL (0-40)
[2021-11-25 17:10] LABS: Direct LDL Cholesterol 39.19 mg/dL (100-129)
== END ==
PROVIDERS: PCP Emergency Medicine; Visit Provider Physician Assistant
DX: E78.2 Mixed hyperlipidemia (principal); I25.10 Atherosclerotic heart disease of native coronary artery without angina pectoris; I34.0 Nonrheumatic mitral (valve) insufficiency; I35.1 Nonrheumatic aortic (valve) insufficiency; I48.0 Paroxysmal atrial fibrillation; I50.32 Chronic diastolic (congestive) heart failure; I65.23 Occlusion and stenosis of bilateral carotid arteries; K21.9 Gastro-esophageal reflux disease without esophagitis; R06.00 Dyspnea, unspecified; R06.01 Orthopnea; R06.02 Shortness of breath; R60.0 Localized edema; R94.31 Abnormal electrocardiogram [ECG] [EKG]; Z95.5 Presence of coronary angioplasty implant and graft; I11.0 Hypertensive heart disease with heart failure
CPT/HCPCS: 36415; 80048; 80061; 80076; 83735; 85025

== ENCOUNTER 2021-11-27 08:36 | Day surgery (SDC) | payer MEDICARE, MEDICAID, SELFPAY ==
--- NOTE | 2021-11-27 08:44 | CA_ITS ---
APPROVED REPORT EXAM: Comprehensive 2D, Doppler, and color-flow Echocardiogram Bearingizer: Nu Vieyra RVT Ht: 5 ft 2 in Wt: 228lbs BSA: 2.02 BP: 158/81 mmHg Indications: SEVERE AI,CAD,A-FIB,DM,SOA,HTN,HLD LV Diastology E Decel Time 223.00 (160-240 msec) Aortic Valve AO VTI 30.46 (18-25 cm) Mitral Valve MV E Max Juliocesar. 157.00 (40-130 cm/s) MV Decel. Time 223.00 (160-240 ms) MV PHT 65.00 ms Procedure After obtaining informed consent, patient underwent transesophageal echo in the [facility]. Type of Sedation : Conscious Sedation Sedation was administered by Ozzy Tracey C.R.N.A. Transesophageal probe was inserted and advanced into esophagus without difficulty by Dr. Freddy Childs. The CATHY was performed without complications. Throughout the procedure, the blood pressure, pulse oximetry, cardiac rhythm, and rate were monitored. The patient tolerated the procedure without adverse effects. Recovery from conscious sedation was uneventful and vital signs were stable. Left Ventricle Left ventricle is normal size mild concentric left ventricular hypertrophy, estimated ejection fraction 55% from the obtained views. Right Ventricle Right ventricle is normal size and contractility. Atria Left atrium is mildly enlarged. Left atrial appendage free of thrombus. There is good appendage flow. Right atrium is mildly enlarged. Intra-atrial septum is intact, there is no flow across the interatrial septum. Agitated saline contrast study is suboptimal Aortic Valve Aortic valve is trileaflet thickened and calcified with mild restriction, there is severe aortic insufficiency. Mitral Valve Mitral valve leaflets are minimally thickened, the mean gradient across mitral valve is 2.9 mmHg, valve area is 3.3 cm By pressure half-time, there is moderate mitral regurgitation. Tricuspid Valve Tricuspid valve is grossly normal, there is mild tricuspid regurgitation. Pulmonic Valve Pulmonic valve is grossly normal. Great Vessels Aortic root is normal size. Ascending, arch and descending thoracic aorta there is no aneurysm or dissection. Normal mobile atheromatous plaque seen in the descending thoracic aorta. Inferior vena cava is not well visualized. Pericardium No significant pericardial effusion noted. Conclusion 1. Biatrial enlargement, normal left ventricular size, mild concentric left ventricular hypertrophy, estimated ejection fraction 55% with no regional wall motion abnormality. 2. Abnormal mitral valve with severe aortic insufficiency. 3. Moderate mitral regurgitation. 4. Other ancillary findings as described above. Electronically signed by : Sanju Perez MD 11/27/2021 11:32:51
[2021-11-27 08:50] VITALS: BMI 41.7
[2021-11-27 09:10] VITALS: BP 158/81; PULSE 89; RESP 16; TEMP 36.9; O2SAT 97
[2021-11-27 09:15] VITALS: PULSE 87
[2021-11-27 09:29] VITALS: BP 104/44; PULSE 72; RESP 20; O2SAT 99
--- NOTE | 2021-11-27 09:34 | EXP.ANES.CKL ---
[facility] Medical History Aortic valve insufficiency Blurry vision Carotid artery stenosis Confusion Coronary arteriosclerosis Diabetes Diastolic dysfunction Diastolic heart failure Dizziness Edema of lower extremity HHD (hypertensive heart disease) Hyperlipidemia Hypertensive heart disease without heart failure Mitral valve regurgitation Peripheral neuropathy Renal insufficiency Right sided numbness Surgical History Stented coronary artery Social History Smoking Status: Never smoker second hand exposure: No alcohol intake: never substance use type: denies use current occupational status: unemployed Travel in the last 8 weeks: None household members: other housing: house current occupational exposures/hazards: No caffeine: Yes [facility] Anesthesia Checklist Patient Identification Patient Identification: Arm Band Structural Data Admitted From: Home Planned Operative Procedure/s: CATHY Consent for Planned Operative Procedure(s) Verified: Yes Verified Documents: Surgical Consent and History and Physical NPO Status Verified Time NPO: 00:00 Additional verifications Anesthesia Reactions: No Airway Assessment C-Spine Mobility Assessed: Yes TMJ Mobility Assessed: Yes Dentition: Poor Dentition Anesthesia Plan Anesthesia Risk discussed: Yes Anesthesia Plan: Verified ASA Class: III Anesthesia Type: MAC
[2021-11-27 10:30] VITALS: BP 137/50; PULSE 72; RESP 20; O2SAT 97
== END 2021-11-27 10:32 | disposition home or self-care (01) ==
PROVIDERS: PCP Emergency Medicine; Visit Provider Internal Medicine Cardiovascular Disease
DX: I35.1 Nonrheumatic aortic (valve) insufficiency (principal); I11.0 Hypertensive heart disease with heart failure; I50.32 Chronic diastolic (congestive) heart failure; I25.10 Atherosclerotic heart disease of native coronary artery without angina pectoris; E11.9 Type 2 diabetes mellitus without complications; I48.0 Paroxysmal atrial fibrillation; I65.23 Occlusion and stenosis of bilateral carotid arteries; Z79.899 Other long term (current) drug therapy; Z79.01 Long term (current) use of anticoagulants; Z79.84 Long term (current) use of oral hypoglycemic drugs
CPT/HCPCS: 93312

== ENCOUNTER → 2021-12-07 13:44 | Outpatient (CLI) | payer MEDICARE, MEDICAID, SELFPAY ==
[2021-12-07 14:59] LABS: Basophils # 0.1 K/mm3 (0-0.2); Basophils % 0.6 % (0.1-2.0); Eosinophils # 0.4 K/mm3 (0.0-0.4); Eosinophils % 3.6 % (0.1-12.0); Hematocrit 36.5 % (37.0-47.0); Hemoglobin 11.1 g/dL (12.2-16.2); Lymphocytes # 2.2 K/mm3 (0.7-4.5); Lymphocytes % 21.9 % (10-50); Mean Corpuscular HGB Conc 30.3 g/dL (31.8-35.4); Mean Corpuscular Volume 92.4 fl (81-99); Mean Platelet Volume 9.5 fl (7.4-10.4); Monocytes # 0.7 K/mm3 (0.1-1.0); Monocytes % 7.3 % (1.7-9.3); Neutrophils # 6.6 K/mm3 (1.8-7.8); Neutrophils % 66.6 % (37.0-80.0); Platelet Count 185 K/mm3 (142-424); Red Blood Count 3.95 M/mm3 (4.20-5.40); Red Cell Distribution Width 13.7 % (11.5-17.5); White Blood Count 9.8 K/mm3 (4.8-10.8)
[2021-12-07 16:08] LABS: Albumin Level 3.9 g/dl (3.5-5.0); Anion Gap 13.9 mEq/L (5-15); Blood Urea Nitrogen 34 mg/dl (7-17); Calcium 8.8 mg/dl (8.4-10.2); Carbon Dioxide 30 mmol/L (22.0-30.0); Chloride 98 mmol/L (98-107); Estimated Glomerular Filt Rate 26 ml/min (>60); GFR (African American) 32 ML/MIN (>60); Glucose 107 mg/dl (74-100); Phosphorous 3.6 mg/dl (2.5-4.5); Potassium 3.9 mmoL/L (3.5-5.1); Sodium 138 mmol/L (136-145)
== END ==
PROVIDERS: PCP Emergency Medicine; Visit Provider Internal Medicine Nephrology
DX: N18.32 Chronic kidney disease, stage 3b (principal)
CPT/HCPCS: 36415; 80069; 85025

== ENCOUNTER → 2021-12-14 12:23 | Outpatient (POV) | payer MEDICARE, MEDICAID, SELFPAY | PROVIDERS: Visit Provider Internal Medicine Nephrology | DX: Z00.00 Encounter for general adult medical examination without abnormal findings (principal) ==

== ENCOUNTER 2021-12-31 13:31 | Emergency (ER) | payer MEDICARE, MEDICAID, SELFPAY ==
[2021-12-31 14:50] VITALS: BP 128/74; PULSE 71; RESP 18; TEMP 37; O2SAT 98; BMI 35.5
--- NOTE | 2021-12-31 15:15 | EXP.UTC ---
Discharge Plan Disposition Patient Disposition: Home, Self-Care Condition: Good Prescriptions Prescriptions: New cefdinir 300 mg capsule 300 mg PO BID Qty: 20 0RF No Action acetaminophen [Tylenol Extra Strength] 500 mg tablet 500 mg PO Q6H PRN (Reason: pain) calcium carbonate-vitamin D3 [Calcium 600 with Vitamin D3] 600 mg(1,500mg) -400 unit capsule 1 cap PO DAILY B-complex with vitamin C Tablet 1 tab PO DAILY cholecalciferol (vitamin D3) 25 mcg (1,000 unit) capsule 25 mcg PO DAILY omeprazole 40 mg capsule,delayed release(DR/EC) 40 mg PO DAILY PRN (Reason: .) isosorbide mononitrate 30 mg tablet extended release 24 hr 30 mg PO DAILY Qty: 90 3RF albuterol sulfate 90 mcg/actuation HFA aerosol inhaler 2 puff INHALATION Q4-6H PRN (Reason: allergies) Qty: 8.5 2RF diltiazem HCl 240 mg capsule,extended release 24hr 240 mg PO DAILY Qty: 90 3RF torsemide 20 mg tablet 40 mg PO DAILY Qty: 60 5RF Rx Instructions: Take 2 tablets by mouth daily apixaban 5 mg tablet 5 mg PO BID Qty: 60 5RF atorvastatin 40 mg tablet 40 mg PO DAILY Qty: 90 3RF (DME) Accu-Chek Guide test strips Strip See Rx Instructions .ROUTE .COMPLEX Qty: 100 3RF Dose Instruction: Test 3 times daily Rx Instructions: Test 3 times daily metoprolol succinate 25 mg tablet extended release 24 hr 25 mg PO DAILY Qty: 90 3RF (DME) lancets [Accu-Chek Fastclix Lancet Drum] Misc See Rx Instructions .Route Qty: 100 2RF Rx Instructions: As directed (DME) lancets 1 EACH misc See Rx Instructions .Route .MEDSUPPLY Rx Instructions: As directed alendronate 70 mg tablet See Rx Instructions .ROUTE .COMPLEX Rx Instructions: Take 1 tab by mouth every 7 days in the morning with a full glass of water on an empty stomach and do not take anything else or lie down for 30 min. pantoprazole 20 mg tablet,delayed release (DR/EC) See Rx Instructions .ROUTE .COMPLEX Rx Instructions: TAKE ONE TABLET BY MOUTH DAILY fluticasone propionate [Flonase Allergy Relief] 50 mcg/actuation spray,suspension 1 spray intranasal QDAY Rx Instructions: administer into each nostril Januvia 25 mg tablet See Rx Instructions .ROUTE .COMPLEX Rx Instructions: TAKE ONE TABLET BY MOUTH DAILY Referrals Follow up/Referrals: Mark Jorgensen MD [Primary Care Provider] - See instructions Activity Restrictions/Add. Instructions Additional Instructions/Restrictions: Take medication as prescribed Follow up with your Family Doctor if no improvement or any worsening of symptoms Return if needed Straight to ER if any life threatening symptoms Clinical Impressions Clinical Impression: Otitis media Qualifiers: Otitis media type: unspecified Laterality: left Qualified Code(s): H66.92 - Otitis media, unspecified, left ear Instructions Patient Instructions: Ear Infections (Alternative Therapy), Middle Ear Infection Discharge ED Provider: Linda Snow [facility] General Stated complaint: Lt ear pain Mode of Arrival: Ambulatory Source of Information: Patient Limitations: No Limitations Time Seen by Provider: 12/31/21 15:16 Description of Symptoms (Recalled from Triage Doc. by RN): PATIENT C/O LEFT EAR PAIN X 2 DAYS HEENT Symptoms (Recalled from RN notes): Yes Resp Symptoms (Recalled from RN notes): No Skin Symptoms (Recalled from RN notes): No MS Symptoms (Recalled from RN notes): No Functional Status (Recalled from RN notes): WNL History of Present Illness Provider Complaint: Patient state that she wears a hearing aid States that for the last couple of days she has had worsening ear ache States that today the pain was worse so she came in to get it checked Related Data Home Medications Medication Instructions Recorded Confirmed calcium carbonate 600 mg-vitamin 1 cap PO DAILY Supplement 04/04/18 12/31/21 D3 10 mcg (400 unit) ca
[2021-12-31 15:28] VITALS: BP 128/74; PULSE 71; RESP 18; TEMP 37; O2SAT 98
== END 2021-12-31 15:31 | disposition home or self-care (01) ==
PROVIDERS: Emergency Provider Nurse Practitioner; PCP Emergency Medicine
DX: H66.92 Otitis media, unspecified, left ear (principal)
CPT/HCPCS: 99212; G0463

== ENCOUNTER → 2022-01-12 14:31 | Outpatient (CLI) | payer MEDICARE, MEDICAID, SELFPAY | PROVIDERS: PCP Emergency Medicine; Visit Provider Ophthalmology | DX: Z01.812 Encounter for preprocedural laboratory examination (principal); Z20.822 Contact with and (suspected) exposure to COVID-19 | CPT/HCPCS: C9803; U0003; U0005 ==

== ENCOUNTER → 2022-03-15 14:18 | Outpatient (CLI) | payer MEDICARE, MEDICAID, SELFPAY ==
[2022-03-15 15:19] LABS: Basophils # 0.1 K/mm3 (0-0.2); Basophils % 1.3 % (0.1-2.0); Eosinophils # 0.4 K/mm3 (0.0-0.4); Eosinophils % 3.5 % (0.1-12.0); Hemoglobin 11.3 g/dL (12.2-16.2); Mean Corpuscular HGB Conc 31.4 g/dL (31.8-35.4); Mean Corpuscular Hemoglobin 27.1 pg (27.0-31.2); Mean Corpuscular Volume 86.4 fl (81-99); Mean Platelet Volume 9.6 fl (7.4-10.4); Monocytes # 0.7 K/mm3 (0.1-1.0); Neutrophils # 6.7 K/mm3 (1.8-7.8); Neutrophils % 68.2 % (37.0-80.0); Platelet Count 265 K/mm3 (142-424); Red Blood Count 4.17 M/mm3 (4.20-5.40); Red Cell Distribution Width 15.6 % (11.5-17.5); White Blood Count 9.8 K/mm3 (4.8-10.8)
[2022-03-15 16:09] LABS: Alanine Aminotransferase 18 U/L (12-78); Albumin Level 3.9 g/dl (3.5-5.0); Alkaline Phosphatase 126 U/L (38-126); Anion Gap 8.5 mEq/L (5-15); Aspartate Amino Transferase 22 U/L (14-36); Bilirubin,Direct 0.1 mg/dl (0.0-0.4); Bilirubin,Indirect 0.5 mg/dL (0.0-0.9); Bilirubin,Total 0.6 mg/dl (0.2-1.3); Bilirubin,Unconjugated 0.5 mg/dL (0.0-1.1); Blood Urea Nitrogen 23 mg/dl (7-17); Calcium 8.8 mg/dl (8.4-10.2); Carbon Dioxide 35 mmol/L (22.0-30.0); Chloride 102 mmol/L (98-107); Cholesterol 104 mg/dl (140-200); Estimated Glomerular Filt Rate 41 ml/min (>60); GFR (African American) 49 ML/MIN (>60); Glucose 104 mg/dl (74-100); HDL Cholesterol 51 mg/dl (40-60); Magnesium 2.1 mg/dl (1.6-2.3); Potassium 3.5 mmoL/L (3.5-5.1); Sodium 142 mmol/L (136-145); Triglycerides 80 mg/dl (30-150); VLDL Cholesterol 16 mg/dL (0-40)
[2022-03-15 16:20] LABS: Direct LDL Cholesterol 37.07 mg/dL (100-129)
[2022-03-15 16:26] LABS: Free T4 (Free Thyroxine) 1.66 ng/dl (0.78-2.19)
[2022-03-15 16:40] LABS: Thyroid Stimulating Hormone 0.53 uIU/mL (0.465-4.68)
== END ==
PROVIDERS: PCP Emergency Medicine; Visit Provider Nurse Practitioner
DX: I25.10 Atherosclerotic heart disease of native coronary artery without angina pectoris (principal); I48.0 Paroxysmal atrial fibrillation; I65.23 Occlusion and stenosis of bilateral carotid arteries; R06.00 Dyspnea, unspecified; R06.01 Orthopnea; R06.02 Shortness of breath; R94.31 Abnormal electrocardiogram [ECG] [EKG]
CPT/HCPCS: 36415; 80048; 80061; 80076; 83735; 84439; 84443; 85025

== ENCOUNTER → 2022-06-09 12:39 | Outpatient (CLI) | payer MEDICARE, MEDICAID, SELFPAY ==
[2022-06-09 13:31] LABS: Albumin Level 3.7 g/dl (3.5-5.0); Blood Urea Nitrogen 25 mg/dl (7-17); Calcium 9.1 mg/dl (8.4-10.2); Carbon Dioxide 34 mmol/L (22.0-30.0); Chloride 102 mmol/L (98-107); Estimated Glomerular Filt Rate 32 ml/min (>60); GFR (African American) 39 ML/MIN (>60); Glucose 143 mg/dl (74-100); Microalbumin/Creatinine Ratio 57.1; Phosphorous 4.6 mg/dl (2.5-4.5); Sodium 140 mmol/L (136-145)
[2022-06-09 13:34] LABS: Creatinine,Urine Random 45 mg/dL (Not Estab.)
[2022-06-09 13:43] LABS: Intact Parathyroid Hormone 179.5 pg/mL (7.5-53.5)
[2022-06-09 13:48] LABS: 25-OH Vitamin D, Total 48.9 ng/mL (30-100)
[2022-06-16 02:09] LABS: Tandem-R Ostase 13.5 ug/L (.)
[2022-06-16 23:57] LABS: C-Telopeptide Serum 469 pg/mL (.)
== END ==
PROVIDERS: PCP Emergency Medicine; Visit Provider Internal Medicine Nephrology
DX: N18.32 Chronic kidney disease, stage 3b (principal); D63.1 Anemia in chronic kidney disease; M81.0 Age-related osteoporosis without current pathological fracture; N25.0 Renal osteodystrophy
CPT/HCPCS: 36415; 80069; 82043; 82306; 82523; 82570; 83970; 84080

== ENCOUNTER → 2022-06-14 09:00 | Outpatient (POV) | payer MEDICARE, MEDICAID, SELFPAY | PROVIDERS: Visit Provider Nurse Practitioner | DX: Z00.00 Encounter for general adult medical examination without abnormal findings (principal) ==

== ENCOUNTER → 2022-07-08 08:35 | Outpatient (CLI) | payer MEDICARE, MEDICAID, SELFPAY | PROVIDERS: PCP Emergency Medicine; Visit Provider Nurse Practitioner | DX: R06.02 Shortness of breath (principal) | CPT/HCPCS: 93306 ==

== ENCOUNTER → 2022-09-09 15:35 | Outpatient (CLI) | payer MEDICARE, MEDICAID, SELFPAY ==
[2022-09-09 16:46] LABS: Basophils # 0.1 K/mm3 (0-0.2); Basophils % 0.5 % (0.1-2.0); Eosinophils # 0.3 K/mm3 (0.0-0.4); Eosinophils % 3.3 % (0.1-12.0); Hematocrit 37.4 % (37.0-47.0); Hemoglobin 11.6 g/dL (12.2-16.2); Lymphocytes # 1.8 K/mm3 (0.7-4.5); Lymphocytes % 19.3 % (10-50); Mean Corpuscular Hemoglobin 27.6 pg (27.0-31.2); Mean Platelet Volume 9.4 fl (7.4-10.4); Monocytes # 0.7 K/mm3 (0.1-1.0); Monocytes % 7.1 % (1.7-9.3); Neutrophils # 6.5 K/mm3 (1.8-7.8); Neutrophils % 69.9 % (37.0-80.0); Platelet Count 207 K/mm3 (142-424); Red Blood Count 4.21 M/mm3 (4.20-5.40); Red Cell Distribution Width 15.1 % (11.5-17.5); White Blood Count 9.3 K/mm3 (4.8-10.8)
[2022-09-09 17:47] LABS: Alanine Aminotransferase 27 U/L (12-78); Albumin Level 4.1 g/dl (3.5-5.0); Alkaline Phosphatase 162 U/L (38-126); Anion Gap 12.8 mEq/L (5-15); Aspartate Amino Transferase 29 U/L (14-36); Bilirubin,Indirect 0.7 mg/dL (0.0-0.9); Bilirubin,Total 0.7 mg/dl (0.2-1.3); Bilirubin,Unconjugated 0.8 mg/dL (0.0-1.1); Blood Urea Nitrogen 27 mg/dl (7-17); Calcium 9.5 mg/dl (8.4-10.2); Carbon Dioxide 32 mmol/L (22.0-30.0); Chloride 102 mmol/L (98-107); Cholesterol 127 mg/dl (140-200); Estimated Glomerular Filt Rate 32 ml/min (>60); GFR (African American) 39 ML/MIN (>60); Glucose 114 mg/dl (74-100); HDL Cholesterol 65 mg/dl (40-60); Magnesium 2.2 mg/dl (1.6-2.3); Potassium 4.8 mmoL/L (3.5-5.1); Sodium 142 mmol/L (136-145); Total Protein,Serum 7.2 g/dl (6.3-8.2); Triglycerides 87 mg/dl (30-150); VLDL Cholesterol 17 mg/dL (0-40)
[2022-09-09 18:03] LABS: Free T4 (Free Thyroxine) 1.49 ng/dl (0.78-2.19)
[2022-09-09 18:24] LABS: Direct LDL Cholesterol 44.56 mg/dL (100-129)
== END ==
PROVIDERS: PCP Emergency Medicine; Visit Provider Internal Medicine
DX: E11.9 Type 2 diabetes mellitus without complications (principal); I11.9 Hypertensive heart disease without heart failure; I25.10 Atherosclerotic heart disease of native coronary artery without angina pectoris; I48.91 Unspecified atrial fibrillation; R60.9 Edema, unspecified; R94.31 Abnormal electrocardiogram [ECG] [EKG]; Z95.2 Presence of prosthetic heart valve; I65.23 Occlusion and stenosis of bilateral carotid arteries; Z79.84 Long term (current) use of oral hypoglycemic drugs
CPT/HCPCS: 36415; 80048; 80061; 80076; 83735; 84439; 84443; 85025

== ENCOUNTER → 2022-10-27 10:17 | Outpatient (CLI) | payer MEDICARE, SELFPAY ==
--- NOTE | 2022-10-27 10:17 | US_ITS ---
PROCEDURE INFORMATION: Exam: US Left Breast, Complete Exam date and time: 10/27/2022 10:48 AM Age: 72 years old Clinical indication: Palpable abnormality in the left breast TECHNIQUE: Imaging protocol: Complete ultrasound of all four quadrants of the left breast and the retroareolar regions, including ultrasound of the axilla when performed. COMPARISON: MG DMSB DIG MAMM-SCREEN LALO W/CAD 03/30/2016 3:36 PM FINDINGS: Breast: Sonographic images of the left breast including the retroareolar region, all 4 quadrants and the axilla do not demonstrate any suspicious solid or cystic masses. This is with particular attention to the left 4 o'clock axis 11 cm from the nipple where the patient reports a palpable abnormality. Incidental subcentimeter lipoma scattered in the left subcutaneous fat. No architectural distortion or acoustical shadowing. No skin thickening or axillary adenopathy. IMPRESSION: A skin marker should be placed over the area of palpable concern followed by a diagnostic unilateral mammogram with spot compression views for full evaluation of the patient's complaint of a palpable abnormality. ASSESSMENT: BI-RADS Category 0: Incomplete- Need Additional Imaging Evaluation and/or Prior Mammograms for Comparison
== END ==
LOC: RAD 10:17
PROVIDERS: PCP Emergency Medicine; Visit Provider Emergency Medicine
DX: N64.59 Other signs and symptoms in breast (principal)
CPT/HCPCS: 76641

== ENCOUNTER → 2022-11-17 14:12 | Outpatient (CLI) | payer MEDICARE, SELFPAY ==
--- NOTE | 2022-11-17 14:12 | MM_ITS ---
PROCEDURE INFORMATION: Exam: MG Left Diagnostic Breast Tomosynthesis Exam date and time: 11/17/2022 2:24 PM Age: 72 years old Clinical indication: Patient recalled on the basis of a screening mammogram for further evaluation; Left breast; palpable abnormality TECHNIQUE: Imaging protocol: Left Diagnostic tomosynthesis and 2D mammography including computer-aided detection (CAD) when performed. Unilateral or bilateral exam. COMPARISON: 1. MG DMSB DIG MAMM-SCREEN LALO W/CAD 03/30/2016 3:36 PM 2. US BREAST LT COMPLETE 10/27/2022 10:48 AM FINDINGS: MAMMOGRAPHY: The breast tissue is almost entirely fatty. There is no stellate mass, architectural distortion or suspicious microcalcifications to suggest malignancy. A skin marker was placed over an area of palpable concern in the left upper breast where the patient reports a palpable abnormality. It should be noted that on sonography dated 10/27/2022, the patient reported a palpable abnormality in the 4 o'clock axis. Nevertheless, the entire left breast ultrasound was imaged and mammary reviewed and remains normal. Additional spot mammographic views over the area of palpable concern demonstrates adipose tissue only. No skin thickening or axillary adenopathy. IMPRESSION: Palpable abnormality (abnormalities) in the left breast corresponds both mammographically and sonographically to predominantly adipose tissue. There is no mammographic evidence of malignancy. Further evaluation of a palpable abnormality should be based on clinical grounds regardless of radiographic findings or lack thereof. Annual mammographic screening is recommended unless otherwise clinically indicated. ASSESSMENT: BI-RADS Category 1: Negative
== END ==
LOC: RAD 14:12
PROVIDERS: PCP Emergency Medicine; Visit Provider Physician Assistant
DX: R92.8 Other abnormal and inconclusive findings on diagnostic imaging of breast (principal)
CPT/HCPCS: 77061; 77065; G0279

== ENCOUNTER → 2022-12-20 08:36 | Outpatient (POV) | payer MEDICARE, SELFPAY | PROVIDERS: Visit Provider Nurse Practitioner | DX: Z00.00 Encounter for general adult medical examination without abnormal findings (principal) ==

== ENCOUNTER → 2022-12-20 09:05 | Outpatient (CLI) | payer MEDICARE, SELFPAY ==
[2022-12-20 09:14] LABS: Microscopic, Urine URINE MICROSCOPIC (MICROSCOPIC)
[2022-12-20 10:38] LABS: Albumin Level 4.1 g/dl (3.5-5.0); Blood Urea Nitrogen 28 mg/dl (7-17); Calcium 9.6 mg/dl (8.4-10.2); Carbon Dioxide 32 mmol/L (22.0-30.0); Chloride 98 mmol/L (98-107); Estimated Glomerular Filt Rate 34 ml/min (>60); GFR (African American) 42 ML/MIN (>60); Glucose 118 mg/dl (74-100); Phosphorous 4.4 mg/dl (2.5-4.5); Sodium 140 mmol/L (136-145)
[2022-12-20 10:49] LABS: Intact Parathyroid Hormone 136.2 pg/mL (7.5-53.5)
[2022-12-20 10:52] LABS: Appearance,Urine CLEAR (Clear); Bilirubin,Urine Negative (Negative); Blood, Urine Negative (Negative); Color,Urine YELLOW (Yellow); Glucose,Urine (UA) Negative (Negative); Ketones,Urine Negative (Negative); Leukocyte Esterase,Urine TRACE (Negative); Nitrate,Urine Negative (Negative); Protein,Urine Negative (Negative); Specific Gravity, Urine 1.015 (1.005-1.030); Urobilinogen,Urine 0.2 EU/dl (0.2)
[2022-12-20 10:54] LABS: 25-OH Vitamin D, Total 72.2 ng/mL (30-100)
[2022-12-20 11:24] LABS: Bacteria,Urine Trace /lpf
[2022-12-20 15:20] LABS: Creatinine,Urine Random 111 mg/dL (Not Estab.)
== END ==
PROVIDERS: PCP Emergency Medicine; Visit Provider Nurse Practitioner
DX: N18.32 Chronic kidney disease, stage 3b (principal)
CPT/HCPCS: 36415; 80069; 81001; 82306; 82570; 83970; 84155

== ENCOUNTER → 2022-12-24 13:01 | Outpatient (CLI) | payer MEDICARE, SELFPAY ==
--- NOTE | 2022-12-24 13:30 | CA_ITS ---
APPROVED REPORT EXAM: Comprehensive 2D, Doppler, and color-flow Echocardiogram Cartographic Drafter: IMAN Ferrera, RVS Ht: 5 ft 6 in Wt: 231lbs BSA: 2.13 BP: 184/70 mmHg Indications: 1 year S/P AVR, SOB, HTN, AFIB, Murmur, Edema, Fatigue, DM 2D Dimensions Aortic Root 3.02 cm LA Volume 96.10 mL Left Atrium 4.23 cm LA Volume Index 44.10 mL/m2 (M/F) 16-34 LVOT 1.72 cm (M/F) 1.5-2.5 M-Mode Dimensions RVDd 2.32 cm (0.9-2.6) LA Diam 4.65 cm (1.9-4.0) LVDd 4.55 cm (3.5-5.7) Ao Diam 3.26 cm (2.0-3.7) LVDs 3.45 cm (3.5-5.7) IVSd 1.21 cm (0.6-1.1) PWd 0.87 cm (0.6-1.1) EF (Teich) 48.30% EPSs 0.57 cm FS 24.20% EDV (Teich) 94.90 mL TAPSE 1.79 (<1.7) ESV (Teich) 49.10 mL LV Diastology E Decel Time 240.00 (160-240 msec) MED E' 6.80 (< 7 cm/sec) MED A' 4.40 cm/s E'/MED E' Ratio 22.35 (>14) LAT E' 6.70 (<10 cm/sec) LAT A' 3.30 cm/s E/LAT E' Ratio 22.69 (>14) Aortic Valve LVOT Max 98.00 (70-110 cm/s) LVOT VTI 22.84 cm AoV Peak Juliocesar. 310.00 (50-130 cm/s) AO Peak GR. 38.50 mmHg AO Mean GR. 19.00 (<5 mmHg) AO VTI 62.26 (18-25 cm) ED (VTI) 0.85 (2.5-4.5 cm2) Mitral Valve MV E Max Juliocesar. 152.00 (40-130 cm/s) MV Decel. Time 240.00 (160-240 ms) MV PHT 70.00 ms Pulmonary Valve MS End VMAX 211.00 cm/s Tricuspid Valve TR P. Velocity 311.00 cm/s RAP Estimate 10.00 mmHg RVSP 48.80 mmHg Left Ventricle The left ventricle is normal size. The left ventricular systolic function is normal. The left ventricular ejection fraction is within the normal range. There is increased LV wall thickness. There is normal LV segmental wall motion. Grade 2 diastolic dysfunction is present. LVEF is 55%. Right Ventricle The right ventricle is mildly dilated. Right ventricle is mildly hypokinetic. Atria Left atrium is mildly dilated. Right atrium is mildly dilated. There is no Doppler evidence of interatrial shunt. Aortic Valve s/p AVR. The prosthesis is well-seated. Peak velocity 2.9 m/s. Mean AV gradient is 13 mmHg. Max AV gradient is 36 mmHg. Acceleration time 79 ms. DVI=0.40. Trace aortic regurgitation. Mitral Valve The mitral valve is normal in structure. No evidence of mitral valve stenosis. Mild mitral regurgitation. Tricuspid Valve The tricuspid valve leaflets are thin and pliable. Moderate tricuspid regurgitation. RVSP is 30-35 mmHg. Pulmonic Valve The pulmonary valve is normal in structure. Mild pulmonic regurgitation. Great Vessels The aortic root is normal in size. The ascending aorta is normal in size. IVC is normal in size and collapses >50% with inspiration. Pericardium There is no pericardial effusion. Other Information Study Quality: Fair Conclusion Normal LV systolic function. Mild RV dilation with mild reduction in RV systolic function. Mild biatrial dilation. s/p AVR. Peak velocity 2.9 m/s. Mean AV gradient is 13 mmHg. Max AV gradient is 36 mmHg. Acceleration time 79 ms. DVI=0.40. Mild MR. Moderate TR. Elevated RVSP 30-35 mmHg. Compared to prior study from 06/2022, the gradients and peak velocity are slightly higher now. Continued follow-up is recommended. Electronically signed by : Nancy Hull MD 01/01/2023 18:17:53
== END ==
LOC: RAD 13:02
PROVIDERS: PCP Emergency Medicine; Visit Provider Internal Medicine
DX: E11.9 Type 2 diabetes mellitus without complications (principal); E66.9 Obesity, unspecified; E78.5 Hyperlipidemia, unspecified; I25.10 Atherosclerotic heart disease of native coronary artery without angina pectoris; I34.0 Nonrheumatic mitral (valve) insufficiency; I48.91 Unspecified atrial fibrillation; I50.32 Chronic diastolic (congestive) heart failure; K21.9 Gastro-esophageal reflux disease without esophagitis; R60.0 Localized edema; R68.89 Other general symptoms and signs; R94.31 Abnormal electrocardiogram [ECG] [EKG]; Z95.2 Presence of prosthetic heart valve; Z95.5 Presence of coronary angioplasty implant and graft; I65.23 Occlusion and stenosis of bilateral carotid arteries; Z68.37 Body mass index [BMI] 37.0-37.9, adult; Z79.84 Long term (current) use of oral hypoglycemic drugs
CPT/HCPCS: 93306

== ENCOUNTER → 2023-01-17 12:26 | Outpatient (CLI) | payer MEDICARE, MEDICAID, SELFPAY ==
--- NOTE | 2023-01-17 12:31 | XR_ITS ---
FINAL REPORT CLINICAL HISTORY: golden COMPARISON: 01/02/2018 FINDINGS: Two views of the chest were obtained. Since the prior exam of December 2017 the patient has undergone midline sternotomy. Cardiomegaly is present, as well as a small left effusion or pleural thickening. There is bronchial wall thickening noted, consistent with bronchitis. The mediastinum is normal. There is no pneumothorax. There is severe degenerative change in the thoracic spine. IMPRESSION: Midline sternotomy has been performed since the prior chest x-ray of 2017, and cardiomegaly is again noted. Small left pleural effusion and/or pleural thickening. Bronchial wall thickening bilaterally consistent with bronchitis. Reviewed, Interpreted and Dictated by Kingsley Haley III, MD Transcribed by Mahsa Bland Authenticated and [facility]
== END ==
PROVIDERS: PCP Physician Assistant; Visit Provider Family Medicine
DX: R06.02 Shortness of breath (principal)
CPT/HCPCS: 71046

== ENCOUNTER → 2023-01-28 12:38 | Outpatient (CLI) | payer MEDICARE, MEDICAID, SELFPAY | PROVIDERS: PCP Physician Assistant; Visit Provider Family Medicine | DX: R06.09 Other forms of dyspnea (principal) | CPT/HCPCS: 94060; 94726; 94729 ==

== ENCOUNTER → 2023-02-02 23:22 | Outpatient (CLI) | payer MEDICARE, MEDICAID, SELFPAY ==
[2023-02-02 20:18] LABS: Alanine Aminotransferase 34 U/L (12-78); Albumin Level 3.8 g/dl (3.5-5.0); Albumin/Globulin Ratio 1.3 (1.1-1.8); Alkaline Phosphatase 133 U/L (38-126); Aspartate Amino Transferase 40 U/L (14-36); Bilirubin,Total 0.8 mg/dl (0.2-1.3); Blood Urea Nitrogen 21 mg/dl (7-17); Calcium 8.6 mg/dl (8.4-10.2); Carbon Dioxide 30 mmol/L (22.0-30.0); Chloride 103 mmol/L (98-107); Estimated Glomerular Filt Rate 40 ml/min (>60); GFR (African American) 49 ML/MIN (>60); Glucose 91 mg/dl (74-100); Potassium 4.2 mmoL/L (3.5-5.1); Total Protein,Serum 6.8 g/dl (6.3-8.2)
[2023-02-02 20:29] LABS: NT Pro Brain Natriuretic Pep. 4290 pg/mL (0-125)
[2023-02-02 20:41] LABS: Anion Gap 9.2 mEq/L (5-15); Sodium 138 mmol/L (136-145)
== END ==
PROVIDERS: PCP Physician Assistant; Visit Provider Family Medicine
DX: I50.30 Unspecified diastolic (congestive) heart failure (principal); Z00.00 Encounter for general adult medical examination without abnormal findings
CPT/HCPCS: 80053; 83880

== ENCOUNTER 2023-02-25 12:57 | Outpatient (CLI) | payer MEDICARE, MEDICAID, SELFPAY ==
--- NOTE | 2023-02-25 13:03 | NM_ITS ---
APPROVED REPORT Exam: Nuclear Stress Test Indication: Chest pain, SOB, HTN, DM, High cholesterol, Family history, CAD, Hx of [place] Patient Location: Outpatient Stress Tech: Neli Schumacher [place] Tech:Suzi Arriaga, ARRT, RT (R)(N) Ht: 5 ft 2 in Wt: 232 lbs Bra Size: 46DD HR: 78 bpm BP: 144/66 mmHg BSA: 2.04 m2 TID: 1.10 BMI: 42.4 History: Chest pain, SOB, HTN, DM, High cholesterol, Family history, CAD, Hx of [place] Procedure: Patient received 0.4 mg of intravenous Lexiscan, resting heart rate 78 bpm, resting blood pressure 144/66 mmHg, with Lexiscan maximum heart rate achieved was 111 bpm which is % of the maximum predicted heart rate and blood pressure was 144/66 mmHg. With Lexiscan, patient denied any complaint of chest pain. Cardiac Stress and Resting SPECT Images: Cardiac Stress and Resting SPECT images were obtained using technetium 99m Myoview 31.9 mCi stress and 10.42 mCi at rest. Patient was not able to lay in the prone position for those images. They were not performed. This may affect the diagnostic interpretation of the study findings. Resting and stress imaging and supine positions demonstrate a large sized, mild, partially reversible perfusion defect in the anterior LV wall. Gated imaging demonstrates normal global LV systolic function. There is mild hypokinesis of the anterior LV wall. LVEF is calculated at 54%. Conclusion: Large sized, mild, partially reversible perfusion defect in the anterior LV wall. Findings are suggestive of partial reversible ischemia. Gated imaging demonstrates normal global LV systolic function. There is mild hypokinesis of the anterior LV wall. LVEF is calculated at 54%. Electronically signed by : Nancy Hull MD 02/28/2023 02:00:56
[2023-02-25] MEDS: ISOTOPE MYOVIEW (PER STUDY) 1 DOSE IV (14:33)
[2023-02-25] MEDS: SODIUM CHLORIDE 0.9% 10ML SYR (RAD ONLY) 10 ML IV ×2 (14:33)
[2023-02-25] MEDS: REGADENOSON 0.4MG/5ML SYRINGE 0.400000000000000022 MG IV (14:33)
--- NOTE | 2023-02-25 14:54 | CA_ITS ---
APPROVED REPORT Exam: Pharmacologic Technologist: Neli Bustamante, Ht: 5 ft 1 in Wt: 240 lbs BSA: 2.04 m2 HR: 96 bpm BP: 144/66 mmHg Rhythm: Atrial Fibrillation Medical History Medications: Omeprazole,,,,, Aspirin,,,,, Vitamin C,,,,, Pantoprazole,,,,, Atorvastatin,,,,, Flonase,,,,, Albuterol,,,,, Januvia,,,,, Centrum Silver,,,,, BisOPROLOL Fumarate,,,,, BuMETANIDE,,,,, B COMPLEX,,,,, Stress Test Details Test: LEXISCAN Reason for pharmacologic stress test: physical limitation. HR Resting HR: 78 bpm Max Heart Rate (APMHR): 150 bpm Max HR Achieved: 111 bpm Target HR (85% APMHR): 128 bpm % of APMHR: 74 Recovery HR: 75 bpm BP Resting BP: 144.0/66.0 mmHg Max BP: 144.0/66.0 mmHg Recovery BP: 131.0/62.0 mmHg ECG Resting ECG: Afib, controlled rate, LPFB, PVCs, T wave abns Stress ECG: No significant ST changes Arrhythmia: PVCs Clinical Exercise duration: 04:00 min Highest Stage Achieved: Stress ECG Conclusion Trendelenberg position. Symptoms: Light headed, faint feeling. No CP. Occasional PVCs were noted. ST-T Changes: No significant ST changes. Conclusion: Unremarkable Lexiscan stress. Myoview images reported separately. Test Summary REST . . . . . . . Resting REST 03:32 . . 78 . 144/ 66 . . Stage 1 01:00 . . 84 . . . . Stage 2 01:00 . . 90 . . . . Stage 3 01:00 . . 79 . 108/ 58 . . Stage 4 01:00 . . 70 . 112/ 53 . Stop exercise at 04:00 RECOVERY 01:00 . . 89 . . . . RECOVERY 02:00 . . 92 . 106/ 61 . . RECOVERY 03:00 . . 85 . 106/ 61 . . RECOVERY 04:00 . . 89 . 122/ 68 . . RECOVERY 05:00 . . 84 . 122/ 68 . . RECOVERY 06:00 . . 92 . 113/ 74 . . RECOVERY 07:00 . . 92 . 113/ 74 . . RECOVERY 08:00 . . 103 . 131/ 62 . . RECOVERY 08:23 . . 78 . 131/ 62 . . Electronically signed by : Nancy Hull MD 02/28/2023 01:57:46
== END 2023-02-25 23:59 ==
LOC: RAD 12:58
PROVIDERS: PCP Physician Assistant; Visit Provider Nurse Practitioner Family
DX: I25.10 Atherosclerotic heart disease of native coronary artery without angina pectoris (principal); I50.30 Unspecified diastolic (congestive) heart failure; R06.02 Shortness of breath
CPT/HCPCS: 78452; 93017; 93018; A9502; J2785

== ENCOUNTER 2023-03-08 09:38 | Outpatient (CLI) | payer MEDICARE, MEDICAID, SELFPAY ==
[2023-03-08 10:28] LABS: Chloride 102 mmol/L (98-107)
[2023-03-08 10:29] LABS: Potassium 4.7 mmoL/L (3.5-5.1); Sodium 140 mmol/L (136-145)
[2023-03-08 10:31] LABS: Blood Urea Nitrogen 26 mg/dl (7-17); Estimated Glomerular Filt Rate 37 ml/min (>60); GFR (African American) 45 ML/MIN (>60)
[2023-03-08 10:32] LABS: Anion Gap 9.7 mEq/L (5-15); Carbon Dioxide 33 mmol/L (22.0-30.0); Glucose 120 mg/dl (74-100)
[2023-03-08 10:40] LABS: NT Pro Brain Natriuretic Pep. 3660 pg/mL (0-125)
== END 2023-03-08 23:59 ==
LOC: LAB 09:40
PROVIDERS: PCP Physician Assistant; Visit Provider Nurse Practitioner Family
DX: I50.30 Unspecified diastolic (congestive) heart failure (principal); N18.9 Chronic kidney disease, unspecified; R60.9 Edema, unspecified
CPT/HCPCS: 36415; 80048; 83880

== ENCOUNTER 2023-03-24 08:15 | Day surgery (SDC) | payer MEDICARE, MEDICAID, SELFPAY ==
[2023-03-24] VITALS (23 sets, daily range): BP systolic 99–143; BP diastolic 48–69; PULSE 63–83; RESP 15–19; TEMP 36.9; O2SAT 93–99; BMI 43.7
--- NOTE | 2023-03-24 07:04 | IR_ITS ---
APPROVED REPORT Patient Location: Outpatient PROCEDURES Right heart catheterization Selective coronary angiogram INDICATION History of aortic valve replacement, Abnormal Myoview, Angina pectoris, Known coronary disease Informed consent was obtained prior to the procedure. COMPLICATIONS NONE Estimated Blood Loss: LESS THAN 10 ML TECHNIQUE One percent lidocaine was used to anesthetize the right groin. The right femoral artery was accessed via the Seldinger technique. A 4-Trinidadian and 7 chilean sheath was placed in the right femoral artery and vein respectfully. A 7 Trinidadian sheath was introduced and a Seaman-Danie catheter was floated using hemodynamic waveforms in the pulmonary artery, right ventricle , and right atrium. Saturations were obtained in the pulmonary artery and the right atrium. The JR-4 and JL-4 catheter was also used to perform selective coronary angiogram. The standard JR4 catheter could not be used to easily cross the aortic valve therefore further attempts were abandoned. Patient was transferred to the postop putting in stable addition for sheath removal ANGIOGRAPHIC RESULTS The left main artery Normal The left anterior descending artery Has a stent in the proximal segment which is widely patent free of in-stent restenosis with excellent proximal distal transitioning. Distally the vessel has mild luminal irregularities The circumflex artery Dominant with mild 10% luminal irregularities The right coronary artery Nondominant mild 10% luminal irregularities The SANCHEZ ventriculogram reveals Aortic valve could not be crossed therefore this was not performed The left ventricular end-diastolic pressure Not measured Right atrial pressure 8 mmHg Pulmonary artery pressure 42/22 mmHg Pulmonary occlusion pressure 20 mmHg Right atrial saturation 68% Pulmonary artery saturation 71% Aortic saturation 100% Hemoglobin 12.4 Cardiac output 5.3 L/min Cardiac index 2.6 IMPRESSION Moderate pulmonary hypertension with elevated left-sided filling pressures as described above Widely patent proximal LAD stent as described above Unable to easily traverse the aortic valve with a JR4 catheter PLAN 1. Recommend echocardiogram to evaluate for presumed aortic stenosis 2. Pending the results of the echocardiogram patient may benefit from diuretics. 3. Medical management for coronary disease 4. Risk factor modification Electronically signed by : Rigo Munoz MD 03/24/2023 13:34:47
[2023-03-24 09:54] LABS: Basophils % 0.3 % (0.1-2.0); Eosinophils # 0.3 K/mm3 (0.0-0.4); Eosinophils % 3.5 % (0.1-12.0); Hematocrit 38.8 % (37.0-47.0); Hemoglobin 12.4 g/dL (12.2-16.2); Lymphocytes # 1.9 K/mm3 (0.7-4.5); Lymphocytes % 24.3 % (10-50); Mean Corpuscular HGB Conc 31.9 g/dL (31.8-35.4); Mean Corpuscular Hemoglobin 28.9 pg (27.0-31.2); Mean Corpuscular Volume 90.5 fl (81-99); Mean Platelet Volume 9.5 fl (7.4-10.4); Monocytes # 0.4 K/mm3 (0.1-1.0); Monocytes % 5.8 % (1.7-9.3); Neutrophils % 66.2 % (37.0-80.0); Platelet Count 181 K/mm3 (142-424); Red Blood Count 4.28 M/mm3 (4.20-5.40); Red Cell Distribution Width 14.1 % (11.5-17.5); White Blood Count 7.6 K/mm3 (4.8-10.8)
[2023-03-24 10:09] LABS: Chloride 103 mmol/L (98-107); Sodium 137 mmol/L (136-145)
[2023-03-24 10:10] LABS: Potassium 4.5 mmoL/L (3.5-5.1)
[2023-03-24 10:13] LABS: Anion Gap 7.5 mEq/L (5-15); Blood Urea Nitrogen 31 mg/dl (7-17); Carbon Dioxide 31 mmol/L (22.0-30.0); Creatinine Clearance Estimated 26 mL/min (50-200); Estimated Glomerular Filt Rate 34 ml/min (>60); GFR (African American) 42 ML/MIN (>60); Glucose 123 mg/dl (74-100)
[2023-03-24] MEDS: HEPARIN 1,000 UNITS/500ML NS (CATH LAB) 3000 UNIT IV (10:28)
[2023-03-24] MEDS: LIDOCAINE 1% 10ML MDV 20 ML IJ (10:28)
[2023-03-24] MEDS: 0.9 % SODIUM CHLORIDE 500 ML 25 ML IV (10:28)
[2023-03-24] MEDS: diphenhydrAMINE 50MG/ML VIAL 50 MG IV (10:29)
[2023-03-24] MEDS: MIDAZOLAM HCL 1MG/1ML 5ML VIAL 1 MG IV (11:01)
[2023-03-24] MEDS: FENTANYL 100MCG/2ML VIAL 50 MCG IV (11:01)
[2023-03-24] MEDS: IOPAMIDOL-370 (76%);100ML BOTTLE 40 ML IV (14:17)
[2023-03-24 14:20] LABS: CATHL Arterial O2 SAT 71.6 % (90-100); CATHL Venous O2 SAT 67.7 % (75-80)
== END 2023-03-24 14:40 | disposition home or self-care (01) ==
PROVIDERS: PCP Physician Assistant; Visit Provider Internal Medicine
DX: I25.118 Atherosclerotic heart disease of native coronary artery with other forms of angina pectoris (principal); I50.33 Acute on chronic diastolic (congestive) heart failure; R93.1 Abnormal findings on diagnostic imaging of heart and coronary circulation; Z79.899 Other long term (current) drug therapy; Z95.2 Presence of prosthetic heart valve; R06.02 Shortness of breath; Z79.01 Long term (current) use of anticoagulants; I13.0 Hypertensive heart and chronic kidney disease with heart failure and stage 1 through stage 4 chronic kidney disease, or unspecified chronic kidney disease; I48.0 Paroxysmal atrial fibrillation; E78.5 Hyperlipidemia, unspecified; I65.23 Occlusion and stenosis of bilateral carotid arteries; E11.22 Type 2 diabetes mellitus with diabetic chronic kidney disease; N18.9 Chronic kidney disease, unspecified
CPT/HCPCS: 80048; 82810; 85025; 93451; 99152; 99153; C1725; C1769; C1894; J1644; Q9967

== ENCOUNTER 2023-03-31 11:11 | Outpatient (CLI) | payer MEDICARE, MEDICAID, SELFPAY ==
[2023-03-31 11:39] LABS: Basophils # 0.1 K/mm3 (0-0.2); Basophils % 0.6 % (0.1-2.0); Eosinophils # 0.5 K/mm3 (0.0-0.4); Eosinophils % 5.1 % (0.1-12.0); Hematocrit 38.4 % (37.0-47.0); Hemoglobin 12.6 g/dL (12.2-16.2); Lymphocytes # 1.9 K/mm3 (0.7-4.5); Lymphocytes % 21.6 % (10-50); Mean Corpuscular HGB Conc 32.8 g/dL (31.8-35.4); Mean Corpuscular Hemoglobin 30.1 pg (27.0-31.2); Mean Corpuscular Volume 91.9 fl (81-99); Mean Platelet Volume 9.5 fl (7.4-10.4); Monocytes # 0.5 K/mm3 (0.1-1.0); Monocytes % 6.1 % (1.7-9.3); Neutrophils % 66.6 % (37.0-80.0); Platelet Count 160 K/mm3 (142-424); Red Blood Count 4.18 M/mm3 (4.20-5.40); Red Cell Distribution Width 14.5 % (11.5-17.5); White Blood Count 8.9 K/mm3 (4.8-10.8)
[2023-03-31 12:33] LABS: Alanine Aminotransferase 24 U/L (12-78); Albumin Level 3.8 g/dl (3.5-5.0); Alkaline Phosphatase 128 U/L (38-126); Anion Gap 7.3 mEq/L (5-15); Aspartate Amino Transferase 29 U/L (14-36); Bilirubin,Direct 0.1 mg/dl (0.0-0.4); Bilirubin,Indirect 0.6 mg/dL (0.0-0.9); Bilirubin,Total 0.7 mg/dl (0.2-1.3); Bilirubin,Unconjugated 0.6 mg/dL (0.0-1.1); Blood Urea Nitrogen 30 mg/dl (7-17); Calcium 9.4 mg/dl (8.4-10.2); Carbon Dioxide 33 mmol/L (22.0-30.0); Chloride 104 mmol/L (98-107); Chol/HDL Ratio 2.3 (1-3.5); Cholesterol 132 mg/dl (140-200); Estimated Glomerular Filt Rate 30 ml/min (>60); GFR (African American) 36 ML/MIN (>60); Glucose 121 mg/dl (74-100); HDL Cholesterol 57 mg/dl (40-60); Magnesium 2.5 mg/dl (1.6-2.3); Potassium 4.3 mmoL/L (3.5-5.1); Sodium 140 mmol/L (136-145); Total Protein,Serum 6.6 g/dl (6.3-8.2); Triglycerides 108 mg/dl (30-150); VLDL Cholesterol 22 mg/dL (0-40)
[2023-03-31 12:44] LABS: Direct LDL Cholesterol 50.32 mg/dL (100-129)
[2023-03-31 12:48] LABS: Free T4 (Free Thyroxine) 1.32 ng/dl (0.78-2.19)
[2023-03-31 13:07] LABS: Thyroid Stimulating Hormone 0.73 uIU/mL (0.465-4.68)
== END 2023-03-31 23:59 ==
LOC: LAB 11:13
PROVIDERS: PCP Physician Assistant; Visit Provider Nurse Practitioner Family
DX: E11.9 Type 2 diabetes mellitus without complications (principal); I25.10 Atherosclerotic heart disease of native coronary artery without angina pectoris; I34.0 Nonrheumatic mitral (valve) insufficiency; I48.91 Unspecified atrial fibrillation; I50.30 Unspecified diastolic (congestive) heart failure; I65.29 Occlusion and stenosis of unspecified carotid artery; K21.9 Gastro-esophageal reflux disease without esophagitis; N18.9 Chronic kidney disease, unspecified; R60.0 Localized edema; R94.31 Abnormal electrocardiogram [ECG] [EKG]; Z95.2 Presence of prosthetic heart valve
CPT/HCPCS: 36415; 80048; 80061; 80076; 83735; 84439; 84443; 85025

== ENCOUNTER 2023-04-14 10:50 | Outpatient (CLI) | payer MEDICARE, MEDICAID, SELFPAY ==
--- NOTE | 2023-04-14 10:51 | CA_ITS ---
APPROVED REPORT EXAM: Comprehensive 2D, Doppler, and color-flow Echocardiogram Marketing Regional Consultant: Blanca Colindres RT(R) Ht: 5 ft 1 in Wt: 232lbs BSA: 2.01 BP: 104/45 mmHg Indications: CP, SOB, HFpEF, AVR(porcine), HTN, DM, KEITH, blurred vision, CKD, CAD, MR. 2D Dimensions LVEF (Purdy's) 57.10 % F: 54 - 74 LV Volume 70.10 mL F: 46 - 106 LV Volume Index 34.9 mL/m2 F: 29 - 61 LA Volume 83.30 mL LA Volume Index 41.44 mL/m2 (M/F) 16-34 EF AP4 59.50 % EF AP2 52.6 % EF BP 57.1 % GL Strain -16.7 % M-Mode Dimensions RVDd 2.50 cm (0.9-2.6) LA Diam 3.58 cm (1.9-4.0) LVDd 5.27 cm (3.5-5.7) LVDs 4.21 cm (3.5-5.7) IVSd 0.83 cm (0.6-1.1) PWd 0.61 cm (0.6-1.1) EF (Teich) 40.90% FS 20.10% EDV (Teich) 133.60 mL ESV (Teich) 79.00 mL LV Diastology E Decel Time 227 (160-240 msec) E/A Ratio 2.9 Aortic Valve ED Index 0.77 cm2/m2 AoV Peak Juliocesar. 238.0 (50-130 cm/s) AO Peak GR. 22.80 mmHg AO Mean GR. 11.10 (<5 mmHg) AO VTI 46.6 (18-25 cm) ED (VTI) 1.59 (2.5-4.5 cm2) Mitral Valve MV E Max Juliocesar. 137.0 (40-130 cm/s) MV A Velocity 47.0 (40-130 cm/s) E/A Ratio 2.91 MV PHT 66.0 ms Tricuspid Valve TR P. Velocity 240.00 cm/s RAP Estimate 10.00 mmHg RVSP 33.00 mmHg Left Ventricle The left ventricle is normal size. The left ventricular systolic function is normal. The left ventricular ejection fraction is within the normal range. There is increased LV wall thickness. There is normal LV segmental wall motion. Diastolic function is indeterminate. LVEF is 55%. Right Ventricle The right ventricle is mildly dilated. Right ventricle is mildly hypokinetic. Atria Left atrium is mildly dilated. Right atrium is mildly dilated. There is no Doppler evidence of interatrial shunt. Aortic Valve s/p bioprosthetic AVR. The prosthesis is well-seated. The leaflets are not well-visualized to accurately estimate mobility. Peak transaortic velocity 2.7 m/s. Mean AV gradient 13 mm. Max AV gradient 27 mmHg. Acceleration time 62 ms. Trace aortic regurgitation. Mitral Valve The mitral valve leaflets are mildly thickened. Mild mitral regurgitation. No evidence of mitral valve stenosis. Tricuspid Valve The tricuspid valve leaflets are thin and pliable. Mild tricuspid regurgitation. RVSP is 25-30 mmHg. Pulmonic Valve The pulmonary valve is normal in structure. Mild pulmonic regurgitation. Great Vessels The aortic root is normal in size. The ascending aorta is not well-visualized. IVC is normal in size and collapses >50% with inspiration. Pericardium There is no pericardial effusion. Other Information Study Quality: Fair Conclusion Normal biventricular systolic function. Biatrial dilation. s/p bioprosthetic AVR. Peak transaortic velocity 2.7 m/s. Mean AV gradient 13 mm. Max AV gradient 27 mmHg. Acceleration time 62 ms. Mild MR, mild TR mild PI. Compared to prior study from 12/2022, there are no significant changes. The AVR gradients are unchanged. Electronically signed by : Nancy Hull MD 04/18/2023 17:07:04
== END 2023-04-14 23:59 ==
LOC: RT 10:51
PROVIDERS: PCP Physician Assistant; Visit Provider Nurse Practitioner Family
DX: E11.9 Type 2 diabetes mellitus without complications (principal); I25.10 Atherosclerotic heart disease of native coronary artery without angina pectoris; I34.0 Nonrheumatic mitral (valve) insufficiency; I48.91 Unspecified atrial fibrillation; I50.30 Unspecified diastolic (congestive) heart failure; I65.29 Occlusion and stenosis of unspecified carotid artery; K21.9 Gastro-esophageal reflux disease without esophagitis; N18.9 Chronic kidney disease, unspecified; R60.0 Localized edema; R94.31 Abnormal electrocardiogram [ECG] [EKG]; Z95.2 Presence of prosthetic heart valve
CPT/HCPCS: 93306

== ENCOUNTER → 2023-05-03 21:06 | Outpatient (CLI) | payer MEDICARE, MEDICAID, SELFPAY | LOC: SL 21:12 | PROVIDERS: PCP Physician Assistant; Visit Provider Physician Assistant | DX: G47.33 Obstructive sleep apnea (adult) (pediatric) (principal); R06.83 Snoring | CPT/HCPCS: 95810 ==

== ENCOUNTER 2023-05-26 09:49 | Outpatient (CLI) | payer MEDICARE, MEDICAID, SELFPAY ==
[2023-05-26 10:17] LABS: Basophils # 0.1 K/mm3 (0-0.2); Basophils % 1.2 % (0.1-2.0); Eosinophils # 0.3 K/mm3 (0.0-0.4); Eosinophils % 3.4 % (0.1-12.0); Hematocrit 40.2 % (37.0-47.0); Hemoglobin 12.6 g/dL (12.2-16.2); Lymphocytes # 1.8 K/mm3 (0.7-4.5); Lymphocytes % 20.2 % (10-50); Mean Corpuscular HGB Conc 31.4 g/dL (31.8-35.4); Mean Corpuscular Hemoglobin 29.5 pg (27.0-31.2); Mean Corpuscular Volume 93.9 fl (81-99); Mean Platelet Volume 10.5 fl (7.4-10.4); Monocytes # 0.6 K/mm3 (0.1-1.0); Monocytes % 6.7 % (1.7-9.3); Neutrophils # 6.1 K/mm3 (1.8-7.8); Neutrophils % 68.4 % (37.0-80.0); Platelet Count 193 K/mm3 (142-424); Red Blood Count 4.28 M/mm3 (4.20-5.40); Red Cell Distribution Width 14.3 % (11.5-17.5); White Blood Count 8.9 K/mm3 (4.8-10.8)
[2023-05-26 11:36] LABS: Iron 105 ug/dL (37-170)
[2023-05-26 11:45] LABS: Total Iron Binding Capacity 365 ug/dL (265-497)
[2023-05-26 12:11] LABS: Ferritin 19.6 ng/ml (11.1-264)
== END 2023-05-26 23:59 | disposition home or self-care (01) ==
PROVIDERS: PCP Physician Assistant; Visit Provider Physician Assistant
DX: Z86.2 Personal history of diseases of the blood and blood-forming organs and certain disorders involving the immune mechanism (principal); G47.61 Periodic limb movement disorder
CPT/HCPCS: 36415; 82728; 83540; 83550; 85025

== ENCOUNTER 2023-06-02 12:05 | Outpatient (CLI) | payer MEDICARE, MEDICAID, SELFPAY ==
[2023-06-02 19:03] LABS: Anion Gap 13.2 mEq/L (5-15); Blood Urea Nitrogen 33 mg/dl (7-17); Calcium 9.4 mg/dl (8.4-10.2); Carbon Dioxide 28 mmol/L (22.0-30.0); Chloride 105 mmol/L (98-107); Estimated Glomerular Filt Rate 34 ml/min (>60); GFR (African American) 42 ML/MIN (>60); Glucose 85 mg/dl (74-100); Potassium 4.2 mmoL/L (3.5-5.1); Sodium 142 mmol/L (136-145)
[2023-06-02 19:53] LABS: Microalbumin/Creatinine Ratio 14.7
[2023-06-02 20:08] LABS: Creatinine,Urine Random 111 mg/dL (Not Estab.)
== END 2023-06-02 23:59 | disposition home or self-care (01) ==
LOC: LAB.DROPOF 06-03 12:06
PROVIDERS: PCP Physician Assistant; Visit Provider Physician Assistant
DX: N18.32 Chronic kidney disease, stage 3b (principal)
CPT/HCPCS: 80048; 82043; 82570

== ENCOUNTER 2023-06-17 10:01 | Outpatient (CLI) | payer MEDICARE, MEDICAID, SELFPAY ==
[2023-06-17 10:28] LABS: Microscopic, Urine URINE MICROSCOPIC (MICROSCOPIC)
[2023-06-17 10:51] LABS: Appearance,Urine CLEAR (Clear); Bilirubin,Urine Negative (Negative); Blood, Urine Negative (Negative); Color,Urine YELLOW (Yellow); Glucose,Urine (UA) 3+ (Negative); Ketones,Urine Negative (Negative); Leukocyte Esterase,Urine Negative (Negative); Nitrate,Urine Negative (Negative); PH,Urine 6.5 (5.0-8.5); Protein,Urine Negative (Negative); Urobilinogen,Urine 0.2 EU/dl (0.2)
[2023-06-17 10:54] LABS: Creatinine,Urine Random 40 mg/dL (Not Estab.)
[2023-06-17 11:02] LABS: Basophils % 0.6 % (0.1-2.0); Eosinophils # 0.2 K/mm3 (0.0-0.4); Eosinophils % 2.8 % (0.1-12.0); Hematocrit 39.6 % (37.0-47.0); Hemoglobin 12.8 g/dL (12.2-16.2); Lymphocytes # 1.6 K/mm3 (0.7-4.5); Lymphocytes % 22.7 % (10-50); Mean Corpuscular HGB Conc 32.4 g/dL (31.8-35.4); Mean Corpuscular Hemoglobin 30.3 pg (27.0-31.2); Mean Corpuscular Volume 93.5 fl (81-99); Mean Platelet Volume 10.3 fl (7.4-10.4); Monocytes # 0.5 K/mm3 (0.1-1.0); Monocytes % 6.6 % (1.7-9.3); Neutrophils # 4.6 K/mm3 (1.8-7.8); Neutrophils % 67.3 % (37.0-80.0); Platelet Count 179 K/mm3 (142-424); Red Blood Count 4.23 M/mm3 (4.20-5.40); Red Cell Distribution Width 14.5 % (11.5-17.5); White Blood Count 6.8 K/mm3 (4.8-10.8)
[2023-06-17 11:15] LABS: Bacteria,Urine 1+ /lpf; RBC,Urine Occasional #/hpf (0-3)
[2023-06-17 12:26] LABS: Albumin Level 3.8 g/dl (3.5-5.0); Chloride 103 mmol/L (98-107); Potassium 4.1 mmoL/L (3.5-5.1); Sodium 140 mmol/L (136-145)
[2023-06-17 12:29] LABS: Anion Gap 9.1 mEq/L (5-15); Blood Urea Nitrogen 29 mg/dl (7-17); Carbon Dioxide 32 mmol/L (22.0-30.0); Estimated Glomerular Filt Rate 32 ml/min (>60); GFR (African American) 39 ML/MIN (>60); Phosphorous 3.9 mg/dl (2.5-4.5)
[2023-06-17 12:30] LABS: Calcium 9.2 mg/dl (8.4-10.2); Glucose 116 mg/dl (74-100)
[2023-06-17 12:43] LABS: 25-OH Vitamin D, Total 72.8 ng/mL (30-100)
[2023-07-02 09:44] LABS: PTH Related Peptide < 2.0
== END 2023-06-17 23:59 | disposition home or self-care (01) ==
LOC: LAB 10:03
PROVIDERS: PCP Physician Assistant; Visit Provider Nurse Practitioner
DX: N18.32 Chronic kidney disease, stage 3b (principal)
CPT/HCPCS: 36415; 80069; 81001; 82306; 82397; 82570; 85025

== ENCOUNTER 2023-06-20 11:21 | Outpatient (POV) | payer MEDICARE, MEDICAID, SELFPAY | END 2023-06-20 23:59 | disposition home or self-care (01) | LOC: SC 11:22 | PROVIDERS: Visit Provider Nurse Practitioner | DX: Z00.00 Encounter for general adult medical examination without abnormal findings (principal) ==

== ENCOUNTER 2023-07-25 10:25 | Outpatient (CLI) | payer MEDICARE, MEDICAID, SELFPAY ==
[2023-07-25 18:41] LABS: Basophils # 0.1 K/mm3 (0-0.2); Basophils % 0.9 % (0.1-2.0); Eosinophils # 0.4 K/mm3 (0.0-0.4); Eosinophils % 4.1 % (0.1-12.0); Hematocrit 42.1 % (37.0-47.0); Hemoglobin 13.2 g/dL (12.2-16.2); Lymphocytes # 1.4 K/mm3 (0.7-4.5); Mean Corpuscular HGB Conc 31.3 g/dL (31.8-35.4); Mean Corpuscular Hemoglobin 29.8 pg (27.0-31.2); Mean Corpuscular Volume 95.3 fl (81-99); Mean Platelet Volume 11.3 fl (7.4-10.4); Monocytes # 0.5 K/mm3 (0.1-1.0); Monocytes % 5.5 % (1.7-9.3); Neutrophils # 6.1 K/mm3 (1.8-7.8); Neutrophils % 72.5 % (37.0-80.0); Platelet Count 171 K/mm3 (142-424); Red Blood Count 4.42 M/mm3 (4.20-5.40); Red Cell Distribution Width 14.7 % (11.5-17.5); White Blood Count 8.4 K/mm3 (4.8-10.8)
[2023-07-25 19:14] LABS: Alanine Aminotransferase 26 U/L (12-78); Albumin/Globulin Ratio 1.3 (1.1-1.8); Alkaline Phosphatase 140 U/L (38-126); Anion Gap 12.7 mEq/L (5-15); Aspartate Amino Transferase 32 U/L (14-36); Blood Urea Nitrogen 25 mg/dl (7-17); Calcium 9.4 mg/dl (8.4-10.2); Carbon Dioxide 31 mmol/L (22.0-30.0); Chloride 101 mmol/L (98-107); Chol/HDL Ratio 2.2 (1-3.5); Cholesterol 137 mg/dl (140-200); Estimated Glomerular Filt Rate 34 ml/min (>60); GFR (African American) 42 ML/MIN (>60); Globulin 3.2 g/dL (1.3-3.2); Glucose 115 mg/dl (74-100); HDL Cholesterol 62 mg/dl (40-60); Potassium 4.7 mmoL/L (3.5-5.1); Sodium 140 mmol/L (136-145); Total Protein,Serum 7.2 g/dl (6.3-8.2); Triglycerides 80 mg/dl (30-150); VLDL Cholesterol 16 mg/dL (0-40)
[2023-07-25 19:25] LABS: Direct LDL Cholesterol 55.62 mg/dL (100-129)
== END 2023-07-25 23:59 | disposition home or self-care (01) ==
LOC: LAB.DROPOF 07-26 10:25
PROVIDERS: PCP Physician Assistant; Visit Provider Physician Assistant
DX: E11.22 Type 2 diabetes mellitus with diabetic chronic kidney disease (principal); N18.9 Chronic kidney disease, unspecified; E55.9 Vitamin D deficiency, unspecified; R53.83 Other fatigue; E78.5 Hyperlipidemia, unspecified; Z79.84 Long term (current) use of oral hypoglycemic drugs; Z68.41 Body mass index [BMI] 40.0-44.9, adult
CPT/HCPCS: 80050; 80053; 80061; 82306; 83036; 84443; 85025

== ENCOUNTER 2023-08-26 08:49 | Outpatient (CLI) | payer MEDICARE, MEDICAID, SELFPAY ==
--- NOTE | 2023-08-26 08:50 | XR_ITS ---
FINAL REPORT TECHNIQUE: Bone mineral density was calculated of the lumbar spine and hip. CLINICAL HISTORY: osteoporosis COMPARISON: None FINDINGS: Using L1-4, the bone mineral density of the spine is 1.142 g/cm2, corresponding to T-score of 0.9. Using the left hip, the bone mineral density of the femoral neck is 0.583 g/cm2, corresponding to a T-score of -2.4. Using the right hip, the bone mineral density of the femoral neck is 0.742 g/cm?, corresponding to a T-score of -1.6. NOTE: T-score: Standard deviation compared with peak bone mass of young adult mean. *Following the recommendations of the International Society of Bone densitometry, classification of hip BMD is based on the lower of two T-scores; total hip or femoral neck. IMPRESSION: Diminished bone mineral density of the hips bilaterally consistent with low bone density. Normal bone density of the lumbar spine, however this is likely falsely elevated secondary to hypertrophic change in the lumbar spine. Reviewed, Interpreted and Dictated by Kingsley Haley III, MD Transcribed by Mahsa Bland Authenticated and [facility]
== END 2023-08-26 23:59 | disposition home or self-care (01) ==
LOC: RAD 08:50
PROVIDERS: PCP Physician Assistant; Visit Provider Physician Assistant
DX: M81.0 Age-related osteoporosis without current pathological fracture (principal)
CPT/HCPCS: 77080

== ENCOUNTER 2023-10-20 14:49 | Outpatient (CLI) | payer MEDICARE, MEDICAID, SELFPAY ==
[2023-10-20 17:26] LABS: Basophils # 0.1 K/mm3 (0-0.2); Basophils % 0.8 % (0.1-2.0); Eosinophils # 0.3 K/mm3 (0.0-0.4); Eosinophils % 3.8 % (0.1-12.0); Hematocrit 42.1 % (37.0-47.0); Hemoglobin 12.7 g/dL (12.2-16.2); Lymphocytes # 1.9 K/mm3 (0.7-4.5); Lymphocytes % 23.6 % (10-50); Mean Corpuscular HGB Conc 30.1 g/dL (31.8-35.4); Mean Corpuscular Hemoglobin 29.7 pg (27.0-31.2); Mean Corpuscular Volume 98.7 fl (81-99); Mean Platelet Volume 10.3 fl (7.4-10.4); Monocytes # 0.6 K/mm3 (0.1-1.0); Monocytes % 7.3 % (1.7-9.3); Neutrophils # 5.2 K/mm3 (1.8-7.8); Neutrophils % 64.6 % (37.0-80.0); Platelet Count 226 K/mm3 (142-424); Red Blood Count 4.27 M/mm3 (4.20-5.40)
[2023-10-20 17:48] LABS: Alanine Aminotransferase 33 U/L (12-78); Albumin/Globulin Ratio 1.2 (1.1-1.8); Alkaline Phosphatase 121 U/L (38-126); Anion Gap 8.2 mEq/L (5-15); Aspartate Amino Transferase 35 U/L (14-36); Bilirubin,Total 0.7 mg/dl (0.2-1.3); Blood Urea Nitrogen 28 mg/dl (7-17); Calcium 9.4 mg/dl (8.4-10.2); Carbon Dioxide 32 mmol/L (22.0-30.0); Chloride 103 mmol/L (98-107); Chol/HDL Ratio 2.1 (1-3.5); Cholesterol 141 mg/dl (140-200); Estimated Glomerular Filt Rate 34 ml/min (>60); GFR (African American) 41 ML/MIN (>60); Globulin 3.3 g/dL (1.3-3.2); Glucose 126 mg/dl (74-100); HDL Cholesterol 66 mg/dl (40-60); Potassium 4.2 mmoL/L (3.5-5.1); Sodium 139 mmol/L (136-145); Total Protein,Serum 7.3 g/dl (6.3-8.2); Triglycerides 86 mg/dl (30-150); VLDL Cholesterol 17 mg/dL (0-40)
[2023-10-20 17:59] LABS: 25-OH Vitamin D, Total 64.5 ng/mL (30-100); Direct LDL Cholesterol 47.86 mg/dL (100-129)
[2023-10-20 18:18] LABS: Thyroid Stimulating Hormone 0.95 uIU/mL (0.465-4.68)
== END 2023-10-20 23:59 | disposition home or self-care (01) ==
LOC: LAB.DROPOF 10-21 14:49
PROVIDERS: PCP Physician Assistant; Visit Provider Physician Assistant
DX: R53.83 Other fatigue (principal); E55.9 Vitamin D deficiency, unspecified; E78.5 Hyperlipidemia, unspecified; E11.9 Type 2 diabetes mellitus without complications; E78.2 Mixed hyperlipidemia
CPT/HCPCS: 80050; 80053; 80061; 82306; 83036; 84443; 85025

== ENCOUNTER → 2023-11-24 20:20 | Outpatient (CLI) | payer MEDICARE, MEDICAID, SELFPAY | LOC: SL 20:22 | PROVIDERS: PCP Physician Assistant; Visit Provider Specialist | DX: G47.33 Obstructive sleep apnea (adult) (pediatric) (principal); G47.34 Idiopathic sleep related nonobstructive alveolar hypoventilation; H91.90 Unspecified hearing loss, unspecified ear; H54.7 Unspecified visual loss | CPT/HCPCS: 95811 ==

== ENCOUNTER 2023-12-02 20:45 | Emergency (ER) | payer MEDICARE, MEDICAID, SELFPAY ==
[2023-12-02 20:47] VITALS: BP 136/64; PULSE 67; RESP 18; TEMP 36.6; O2SAT 97; BMI 99.4
--- NOTE | 2023-12-02 21:03 | CT_ITS ---
PROCEDURE INFORMATION: Exam: CT Cervical Spine Without Contrast Exam date and time: 12/02/2023 10:07 PM Age: 73 years old Clinical indication: Injury or trauma; Fall; Blunt trauma; Additional info: Trauma, fall, epigastric pain TECHNIQUE: Imaging protocol: Computed tomography of the cervical spine without contrast. Radiation optimization: All CT scans at this facility use at least one of these dose optimization techniques: automated exposure control; mA and/or kV adjustment per patient size (includes targeted exams where dose is matched to clinical indication); or iterative reconstruction. COMPARISON: CT CERVICAL SPINE WO CON 12/02/2023 10:07 PM FINDINGS: Bones: Mild kyphosis. No fracture or bone destruction. Predental space narrowing consistent with arthritis. Ldks-mh-gkuovlqv multilevel degenerative disc disease predominantly at C4-C5, C5-C6 and C6-C7 levels with disc space narrowing and small disc osteophyte complexes. Mild multilevel facet arthropathy. Trachea: Poorly visualized but markedly enlarged thyroid gland measuring 10 0.4 x 8.3 cm with rightward tracheal deviation. Ultrasound recommended. Lungs: Lung apices are normal. Vasculature: Bilateral carotid calcifications. Soft tissues: Unremarkable. IMPRESSION: 1. Mild kyphosis. 2. No fracture or bone destruction. 3. Predental space narrowing consistent with arthritis. 4. Caoz-sk-lyiozwhz multilevel degenerative disc disease predominantly at C4-C5, C5-C6 and C6-C7 levels with disc space narrowing and small disc osteophyte complexes. 5. Mild multilevel facet arthropathy. 6. Bilateral carotid calcifications. 7. Poorly visualized but markedly enlarged thyroid gland measuring 10 0.4 x 8.3 cm with rightward tracheal deviation. Ultrasound recommended.
--- NOTE | 2023-12-02 21:03 | CT_ITS ---
PROCEDURE INFORMATION: Exam: CT Thoracic Spine Without Contrast Exam date and time: 12/02/2023 10:09 PM Age: 73 years old Clinical indication: Injury or trauma; Fall; Blunt trauma (contusions or hematomas); Additional info: Trauma, fall, epigastric pain TECHNIQUE: Imaging protocol: Computed tomography of the thoracic spine without contrast. Radiation optimization: All CT scans at this facility use at least one of these dose optimization techniques: automated exposure control; mA and/or kV adjustment per patient size (includes targeted exams where dose is matched to clinical indication); or iterative reconstruction. COMPARISON: 1. CT THORACIC SPINE WO CON 12/02/2023 10:[address] CERVICAL SPINE WO CON 12/02/2023 10:07 PM FINDINGS: Bones/joints: There is diffuse osseous demineralization. There is exaggeration of the spinal curvature. No evidence of acute spondylolisthesis or vertebral subluxation. Vertebral body heights are generally preserved, but some endplate sclerosis and anterior osteophytes are noted at multiple levels. Narrowing of multiple intervertebral disc spaces observed, indicative of degenerative disc disease. Hypertrophic changes are seen in the facet joints, consistent with osteoarthritis. No fractures or bony lesions identified. No abnormalities seen in adjacent osseous structures. Soft tissues: Unremarkable. Vasculature: There are atherosclerotic calcifications of the carotid bulbs bilaterally. Heart: Partially visualized left atrial appendage clip. Other findings: No obvious abnormalities seen in the prevertebral and paravertebral soft tissues. IMPRESSION: Degenerative changes without acute abnormality detected.
--- NOTE | 2023-12-02 21:03 | CT_ITS ---
PROCEDURE INFORMATION: Exam: CT Head Without Contrast Exam date and time: 12/02/2023 10:17 PM Age: 73 years old Clinical indication: Injury or trauma; Fall; Blunt trauma (contusions or hematomas); Additional info: Trauma, fall, epigastric pain TECHNIQUE: Imaging protocol: Computed tomography of the head without contrast. Radiation optimization: All CT scans at this facility use at least one of these dose optimization techniques: automated exposure control; mA and/or kV adjustment per patient size (includes targeted exams where dose is matched to clinical indication); or iterative reconstruction. COMPARISON: CT HEAD/BRAIN WO CON 03/08/2019 3:05 PM FINDINGS: Brain: No evidence for intracranial hemorrhage, mass lesions or acute stroke. Intracranial vascular calcifications. Mild small vessel ischemic change in the periventricular white matter. Cerebral ventricles: No ventriculomegaly. Pituitary gland and sella: Negative Paranasal sinuses: Visualized sinuses are unremarkable. No fluid levels. Mastoid air cells: Visualized mastoid air cells are well aerated. Orbital cavities: Bilateral cataract extractions. Parotid and submandibular glands: Negative Bones: Unremarkable. No acute fracture. Soft tissues: Unremarkable. Vasculature: Negative. Other findings: Mild generalized atrophy. IMPRESSION: 1. No evidence for intracranial hemorrhage, mass lesions or acute stroke. 2. Intracranial vascular calcifications. 3. Mild generalized atrophy. 4. Mild small vessel ischemic change in the periventricular white matter.
--- NOTE | 2023-12-02 21:03 | CT_ITS ---
PROCEDURE INFORMATION: Exam: CT Lumbar Spine Without Contrast Exam date and time: 12/02/2023 10:12 PM Age: 73 years old Clinical indication: Injury or trauma; Fall; Blunt trauma (contusions or hematomas); Additional info: Trauma, fall, epigastric pain TECHNIQUE: Imaging protocol: Computed tomography of the lumbar spine without contrast. Radiation optimization: All CT scans at this facility use at least one of these dose optimization techniques: automated exposure control; mA and/or kV adjustment per patient size (includes targeted exams where dose is matched to clinical indication); or iterative reconstruction. COMPARISON: 1. CT LUMBAR SPINE WO CON 12/02/2023 10:12 PM 2. CR SPLUMBLM XR lumbar spine 2-3V 11/22/2017 10:[address] THORACIC SPINE WO CON 12/02/2023 10:09 PM FINDINGS: Bones/joints: There is exaggeration of the spinal curvature. No evidence of acute spondylolisthesis or vertebral subluxation. Vertebral body heights are generally preserved, but some endplate sclerosis and anterior osteophytes are noted at multiple levels. Narrowing of multiple intervertebral disc spaces observed, indicative of degenerative disc disease. Hypertrophic changes are seen in the facet joints, consistent with osteoarthritis. No fractures or bony lesions identified. No abnormalities seen in adjacent osseous structures. Soft tissues: Unremarkable. Other findings: No obvious abnormalities seen in the prevertebral and paravertebral soft tissues. IMPRESSION: Degenerative changes without acute abnormality detected.
--- NOTE | 2023-12-02 21:03 | CT_ITS ---
PROCEDURE INFORMATION: Exam: CTA Abdomen and Pelvis With Contrast Exam date and time: 12/02/2023 10:20 PM Age: 73 years old Clinical indication: Injury or trauma; Fall; Blunt trauma; Pelvic area; Bilateral; Additional info: Trauma, fall, epigastric pain TECHNIQUE: Imaging protocol: Computed tomographic angiography of the abdomen and pelvis with contrast. Exam focused on the arteries. 3D rendering (Not supervised by radiologist): MIP and/or 3D reconstructed images were created by the technologist. Radiation optimization: All CT scans at this facility use at least one of these dose optimization techniques: automated exposure control; mA and/or kV adjustment per patient size (includes targeted exams where dose is matched to clinical indication); or iterative reconstruction. Contrast material: ISOUVE 370; Contrast volume: 80 ml; Contrast route: INTRAVENOUS (IV); COMPARISON: 1. CT BONY PELVIS 12/02/2023 10:[address] LUMBAR SPINE WO CON 12/02/2023 10:12 PM FINDINGS: Lungs: Scattered areas of bronchial wall thickening which are likely chronic inflammatory. A few areas of subpleural reticulation are noted, nonspecific. Aorta: There is atherosclerotic disease of the visualized aorta and its major branch vessels. Celiac trunk and mesenteric arteries: No occlusion or significant stenosis. Renal arteries: No occlusion or significant stenosis. Right iliac arteries: No occlusion or significant stenosis. Left iliac arteries: No occlusion or significant stenosis. Liver: No mass. Gallbladder and biliary ducts: The patient is status post cholecystectomy. Pancreas: There is fatty replacement of the pancreas. Spleen: Unremarkable. No splenomegaly. Adrenal glands: Unremarkable. No mass. Kidneys and ureters: Unremarkable. No solid mass. No hydronephrosis. Stomach and bowel: Unremarkable. No obstruction. No mucosal thickening. Appendix: No evidence of appendicitis. Intraperitoneal space: Unremarkable. No free air. No significant fluid collection. Lymph nodes: Unremarkable. No enlarged lymph nodes. Urinary bladder: There is moderate distention of the urinary bladder. Reproductive: 2.4 cm left adnexal cyst, nonemergent pelvic ultrasound would be suggested for further evaluation. Bones/joints: Please see the dedicated interpretation of the spine for findings in that region. There is exaggeration of the spinal curvature. There is diffuse degenerative disease of the visualized osseous structures. The patient is status post median sternotomy. Soft tissues: Laxity of the ventral abdominal wall consistent with diastasis recti. There are postsurgical changes of the ventral abdominal wall. IMPRESSION: 1. No acute traumatic injury is identified. 2. 2.4 cm left adnexal cyst, nonemergent pelvic ultrasound would be suggested for further evaluation.
--- NOTE | 2023-12-02 21:03 | CT_ITS ---
PROCEDURE INFORMATION: Exam: CT Pelvis Without Contrast, Skeleton Exam date and time: 12/02/2023 10:15 PM Age: 73 years old Clinical indication: Injury or trauma; Fall; Blunt trauma (contusions or hematomas); Bilateral; Pelvic region; Additional info: Trauma, fall, epigastric pain TECHNIQUE: Imaging protocol: Computed tomography of the pelvis without contrast. Exam focused on the skeleton. Radiation optimization: All CT scans at this facility use at least one of these dose optimization techniques: automated exposure control; mA and/or kV adjustment per patient size (includes targeted exams where dose is matched to clinical indication); or iterative reconstruction. COMPARISON: 1. CT LUMBAR SPINE WO CON 12/02/2023 10:12 PM 2. CR SPLUMBLM XR lumbar spine 2-3V 11/22/2017 10:20 AM FINDINGS: Intraperitoneal space: Please see dedicated CT of the abdomen and pelvis for discussion of pelvic soft tissues. Bones/joints: There is diffuse osseous demineralization. There is diffuse degenerative disease of the visualized osseous structures. Soft tissues: Unremarkable. IMPRESSION: Demineralization and degenerative changes without acute injury identified.
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
[2023-12-02] MEDS: ACETAMINOPHEN 500MG TAB 1000 MG PO (21:23)
[2023-12-02 21:31] VITALS: BP 122/60; PULSE 70; O2SAT 98
[2023-12-02 21:35] LABS: Albumin Level 4.2 g/dl (3.5-5.0); Chloride 105 mmol/L (98-107); Sodium 141 mmol/L (136-145)
[2023-12-02 21:36] LABS: Potassium 3.9 mmoL/L (3.5-5.1)
[2023-12-02 21:38] LABS: Alanine Aminotransferase 30 U/L (12-78); Albumin/Globulin Ratio 1.3 (1.1-1.8); Alkaline Phosphatase 120 U/L (38-126); Anion Gap 8.9 mEq/L (5-15); Aspartate Amino Transferase 37 U/L (14-36); Bilirubin,Total 0.7 mg/dl (0.2-1.3); Blood Urea Nitrogen 44 mg/dl (7-17); Carbon Dioxide 31 mmol/L (22.0-30.0); Creatinine Clearance Estimated 21 mL/min (50-200); Estimated Glomerular Filt Rate 28 ml/min (>60); GFR (African American) 34 ML/MIN (>60); Globulin 3.3 g/dL (1.3-3.2); Lipase 57 U/L (23-300); Total Protein,Serum 7.5 g/dl (6.3-8.2)
[2023-12-02 21:39] LABS: Calcium 9.6 mg/dl (8.4-10.2); Glucose 137 mg/dl (74-100)
[2023-12-02 21:44] LABS: Basophils # 0.1 K/mm3 (0-0.2); Basophils % 1.1 % (0.1-2.0); Eosinophils # 0.2 K/mm3 (0.0-0.4); Eosinophils % 2.5 % (0.1-12.0); Hematocrit 39.9 % (37.0-47.0); Lymphocytes # 1.5 K/mm3 (0.7-4.5); Lymphocytes % 21.7 % (10-50); Mean Corpuscular HGB Conc 32.7 g/dL (31.8-35.4); Mean Corpuscular Hemoglobin 30.3 pg (27.0-31.2); Mean Corpuscular Volume 92.7 fl (81-99); Mean Platelet Volume 9.7 fl (7.4-10.4); Monocytes # 0.5 K/mm3 (0.1-1.0); Monocytes % 6.5 % (1.7-9.3); Neutrophils # 4.8 K/mm3 (1.8-7.8); Neutrophils % 68.1 % (37.0-80.0); Platelet Count 156 K/mm3 (142-424); Red Blood Count 4.31 M/mm3 (4.20-5.40); Red Cell Distribution Width 13.8 % (11.5-17.5); White Blood Count 7.1 K/mm3 (4.8-10.8)
[2023-12-02] MEDS: RINGERS SOLUTION,LACTATED 500 ML 999 ML IV (21:44)
[2023-12-02 21:51] LABS: Activated Partial Thrombo Time 29.1 seconds (22.8-30.6); INR 1.08 (0.9-1.1)
[2023-12-02] MEDS: IOPAMIDOL-370 (76%);100ML BOTTLE 80 ML IV (22:29)
[2023-12-02] MEDS: 0.9 % SODIUM CHLORIDE 50 ML VIAL IV (22:29)
[2023-12-02] MEDS: SODIUM CHLORIDE 0.9% 10ML SYR (RAD ONLY) 10 ML IV (22:29)
[2023-12-02 23:33] LABS: HIV (1&2) Antibody Rapid NONREACTIVE (NONREACTIVE)
[2023-12-02 23:55] VITALS: BP 121/70; PULSE 69; RESP 16; TEMP 36.6; O2SAT 98
[2023-12-04 08:29] LABS: HCV Ab Non Reactive (Non Reactive)
== END 2023-12-03 00:06 | disposition home or self-care (01) ==
PROVIDERS: Emergency Provider Emergency Medicine; PCP Physician Assistant
DX: S30.1XXA Contusion of abdominal wall, initial encounter (principal); N83.202 Unspecified ovarian cyst, left side; E04.9 Nontoxic goiter, unspecified; M54.50 Low back pain, unspecified; R10.13 Epigastric pain; W03.XXXA Other fall on same level due to collision with another person, initial encounter; Y93.89 Activity, other specified; Y92.512 Supermarket, store or market as the place of occurrence of the external cause
CPT/HCPCS: 96360; 70450; 72125; 72128; 72131; 72192; 74174; 80053; 83690; 85025; 85610; 85730; 86803; 87389; 99285; J7120; Q9967

== ENCOUNTER 2023-12-07 08:41 | Outpatient (CLI) | payer MEDICARE, MEDICAID, SELFPAY ==
[2023-12-07 09:51] LABS: Chloride 102 mmol/L (98-107); Sodium 140 mmol/L (136-145)
[2023-12-07 09:52] LABS: Potassium 3.1 mmoL/L (3.5-5.1)
[2023-12-07 09:55] LABS: Anion Gap 11.1 mEq/L (5-15); Blood Urea Nitrogen 41 mg/dl (7-17); Calcium 9.4 mg/dl (8.4-10.2); Carbon Dioxide 30 mmol/L (22.0-30.0); Estimated Glomerular Filt Rate 30 ml/min (>60); GFR (African American) 36 ML/MIN (>60); Glucose 134 mg/dl (74-100)
== END 2023-12-07 23:59 | disposition home or self-care (01) ==
LOC: LAB 08:42
PROVIDERS: PCP Physician Assistant; Visit Provider Nurse Practitioner Family
DX: I11.9 Hypertensive heart disease without heart failure (principal); I25.10 Atherosclerotic heart disease of native coronary artery without angina pectoris
CPT/HCPCS: 36415; 80048

== ENCOUNTER 2023-12-13 11:29 | Outpatient (CLI) | payer MEDICARE, MEDICAID, SELFPAY ==
[2023-12-13 12:42] LABS: Blood Urea Nitrogen 40 mg/dl (7-17); Calcium 9.4 mg/dl (8.4-10.2); Carbon Dioxide 28 mmol/L (22.0-30.0); Chloride 99 mmol/L (98-107); Estimated Glomerular Filt Rate 30 ml/min (>60); GFR (African American) 36 ML/MIN (>60); Glucose 112 mg/dl (74-100); Sodium 139 mmol/L (136-145)
== END 2023-12-13 23:59 | disposition home or self-care (01) ==
PROVIDERS: Nurse Practitioner Family; PCP Physician Assistant; Visit Provider Specialist
DX: I11.9 Hypertensive heart disease without heart failure (principal); I25.10 Atherosclerotic heart disease of native coronary artery without angina pectoris; E78.2 Mixed hyperlipidemia; I34.0 Nonrheumatic mitral (valve) insufficiency; Z95.5 Presence of coronary angioplasty implant and graft
CPT/HCPCS: 80048

== ENCOUNTER 2023-12-30 14:20 | Outpatient (CLI) | payer MEDICARE, MEDICAID, SELFPAY ==
--- NOTE | 2023-12-30 14:24 | US_ITS ---
FINAL REPORT CLINICAL HISTORY: POSS ENLARGEMENT COMPARISON: None FINDINGS: Sonographic images of the thyroid gland were obtained. The right thyroid lobe measures 57 mm. in length. The left thyroid lobe measures 66 mm. in length. The thyroid isthmus measures 3 mm. The thyroid gland is enlarged, with marked heterogeneous echotexture. The dominant nodule in the right lobe of the thyroid gland measures 37 x 35 x 25 cm in size, solid, isoechoic, a TI-RADS category 3 nodule. Several other small nodules are identified. The dominant nodule in the left lobe of the thyroid gland measures 47 x 45 x 34 mm in size, also solid, isoechoic, a TI-RADS category 3 nodule. Several other nodules are identified. IMPRESSION: Findings consistent with multinodular goiter, and 2 dominant nodules as described above in each lobe of the thyroid gland, TI-RADS category 3 nodules. Recommend fine-needle aspiration of both nodules for further evaluation. Reviewed, Interpreted and Dictated by Kingsley Haley III, MD Transcribed by Mahsa Bland Authenticated and [facility]
--- NOTE | 2023-12-30 14:24 | US_ITS ---
PROCEDURE: US TRANSVAGINAL CLINICAL INDICATION: OVARIAN CYST COMPARISON: CT CT ANGIO ABDOMEN PELVIS from 12/02/2023 FINDINGS: Transvaginal sonographic images of the pelvis were obtained. UTERUS: 3.8 cm x 3.3cmx 2.0cm anteverted and anteflexed with a combined endometrial thickness of 4.5mm. There is a small fluid collection within the uterine cavity. There are 2 small nabothian cysts in the cervix measuring 6.8 mm and 6.4 mm. LEFT OVARY: 2.9 cmx2.6 cmx2.6cm with a volume of 10ml. An there is a follicle measuring 2.0 cm x 1.8 cm x 2.0 cm RIGHT OVARY: 2.2cmx 1.7 cmx1.4cm with a volume of 2.8ml. Right ovary appears atrophic. Both ovaries are seen and appear normal. Doppler flow to both ovaries are seen. There is no fluid in the cul-de-sac. IMPRESSION: 1. Anteverted and anteflexed small uterus. There is a small amount of fluid within the uterine cavity likely benign. The endometrium appears thin. 2. The left ovary contains a simple cyst measuring 2.0 cm. Likely benign but a follow-up exam could be performed in 3 months to confirm its stability. 3. Right ovary appears atrophic. 4. No fluid in the cul-de-sac. Dictated by: Adam Bennett MD 12/31/2023 09:56 Adam Bennett MD in [place] 12/31/2023 09:56
== END 2023-12-30 23:59 | disposition home or self-care (01) ==
LOC: RAD 14:20
PROVIDERS: PCP Physician Assistant; Visit Provider Physician Assistant
DX: E04.9 Nontoxic goiter, unspecified (principal); N83.202 Unspecified ovarian cyst, left side
CPT/HCPCS: 76536; 76830

== ENCOUNTER 2024-03-15 14:55 | Outpatient (CLI) | payer MEDICARE, MEDICAID, SELFPAY ==
--- NOTE | 2024-03-15 15:00 | CA_ITS ---
APPROVED REPORT EXAM: Comprehensive 2D, Doppler, and color-flow Echocardiogram Surgical Tech: Blanca Colindres RT(R) Ht: 5 ft 0 in Wt: 224lbs BSA: 1.96 BP: 141/87 mmHg Indications: CP, DM, SOB, JAXON, AVR porciine valve 2021, abn EKG, CAD, CHF, AFIB 2D Dimensions LVEF (Purdy's) 49.20 % F: 54 - 74 LV Volume 74.20 mL F: 46 - 106 LV Volume Index 37.9 mL/m2 F: 29 - 61 LA Volume 42.40 mL LA Volume Index 21.63 mL/m2 (M/F) 16-34 EF AP4 43.30 % EF AP2 49.5 % EF BP 49.2 % GL Strain -15.2 % M-Mode Dimensions RVDd 3.18 cm (0.9-2.6) LA Diam 4.76 cm (1.9-4.0) LVDd 4.99 cm (3.5-5.7) LVDs 3.82 cm (3.5-5.7) IVSd 0.72 cm (0.6-1.1) PWd 0.64 cm (0.6-1.1) EF (Teich) 46.70% FS 23.40% EDV (Teich) 117.70 mL TAPSE 1.19 (<1.7) ESV (Teich) 62.70 mL LV Diastology E Decel Time 220 (160-240 msec) E/A Ratio 4.1 Aortic Valve ED Index 1.00 cm2/m2 AoV Peak Juliocesar. 226.0 (50-130 cm/s) AO Peak GR. 20.40 mmHg AO Mean GR. 10.10 (<5 mmHg) AO VTI 49.3 (18-25 cm) ED (VTI) 2.01 (2.5-4.5 cm2) Mitral Valve MV E Max Juliocesar. 126.0 (40-130 cm/s) MV A Velocity 31.0 (40-130 cm/s) E/A Ratio 4.12 MV PHT 64.0 ms Tricuspid Valve TR P. Velocity 312.00 cm/s RAP Estimate 10.00 mmHg RVSP 48.80 mmHg Left Ventricle The left ventricle is normal size. The left ventricular systolic function is normal. The left ventricular ejection fraction is within the normal range. There is increased LV wall thickness. There is normal LV segmental wall motion. The left ventricular diastolic function is normal. LVEF is 55%. Right Ventricle Right ventricle is mildly dilated. The right ventricular systolic function is normal. Atria The left atrium is mildly dilated. The right atrium is mildly dilated. There is no Doppler evidence of interatrial shunt. Aortic Valve s/p bioprosthetic AVR. The prosthesis is well-seated. Peak velocity 2.2 m/s. Mean AV gradient 12 mmHg. Max AV gradient 24 mmHg. Mitral Valve The mitral valve leaflets are mildly thickened. Trace central aortic regurgitation. No evidence of mitral valve stenosis. Mild mitral regurgitation. Tricuspid Valve The tricuspid valve leaflets are thin and pliable. Moderate tricuspid regurgitation. RVSP is 30-35 mmHg. Pulmonic Valve The pulmonary valve is normal in structure. Mild pulmonic regurgitation. Great Vessels The aortic root is normal in size. The ascending aorta is not well-visualized. IVC is normal in size and collapses >50% with inspiration. Pericardium There is no pericardial effusion. Other Information Study Quality: Fair Conclusion Normal biventricular systolic function. Mild RV dilation. Biatrial dilation. s/p bioprosthetic AVR. Acceptable AV gradients. Moderate TR. Mild MR. RVSP 30-35 mmHg. Compared to prior study from 04/14/2023, the LVEF and AV gradients are unchanged. Electronically signed by : Nancy Hull MD 03/25/2024 19:43:50
== END 2024-03-15 23:59 | disposition home or self-care (01) ==
LOC: RT 14:57
PROVIDERS: PCP Physician Assistant; Visit Provider Nurse Practitioner Family
DX: Z95.5 Presence of coronary angioplasty implant and graft (principal); I34.0 Nonrheumatic mitral (valve) insufficiency
CPT/HCPCS: 93306

== ENCOUNTER 2024-04-13 09:49 | Outpatient (CLI) | payer MEDICARE, MEDICAID, SELFPAY ==
[2024-04-13 09:56] LABS: Microscopic, Urine URINE MICROSCOPIC (MICROSCOPIC)
[2024-04-13 10:11] LABS: Hematocrit 39.2 % (37.0-47.0); Hemoglobin 12.8 g/dL (12.2-16.2); Mean Corpuscular HGB Conc 32.7 g/dL (31.8-35.4); Mean Corpuscular Hemoglobin 29.4 pg (27.0-31.2); Mean Corpuscular Volume 90.1 fl (81-99); Platelet Count 148 K/mm3 (142-424); Red Blood Count 4.35 M/mm3 (4.20-5.40); Red Cell Distribution Width 14.5 % (11.5-17.5); White Blood Count 9.1 K/mm3 (4.8-10.8)
--- NOTE | 2024-04-13 10:12 | US_ITS ---
PROCEDURE: US TRANSVAGINAL CLINICAL INDICATION: LEFT SIDE /OVARIAN CYST COMPARISON: CT CT ANGIO ABDOMEN PELVIS from 12/02/2023 US US TRANSVAGINAL from 12/30/2023 FINDINGS: Transvaginal sonographic images of the pelvis were obtained. UTERUS: 3.9 cm x 3.4cmx 2.1cm anteverted and anteflexed with a combined endometrial thickness of 2.1mm. There are 2 small nabothian cysts in the cervix. Combined they measure 1.4 cm x 1.3 cm There continues to be a small amount of fluid within the endometrium but the endometrium is thin. LEFT OVARY: 2.2cmx1.5cmx2.5cm with a volume of 4.4ml. There is a 2.0 cm x 2.0 cm x 1.8 cm cyst adjacent to the left ovary. No change in size since her last ultrasound. RIGHT OVARY: 1.6 cmx 2.3cmx1.0cm with a volume of 1.9ml. Both ovaries are seen and appear atrophic. Doppler flow to both ovaries are seen. There is no fluid in the cul-de-sac. IMPRESSION: 1. Anteverted, anteflexed small uterus. The endometrium is thin and measures 2.1 mm. There is a small amount of fluid within the endometrium. Likely benign. 2. Both ovaries are seen and appear normal. The left ovary is atrophic appearing and adjacent to the left ovary there continues to be a 2 cm simple cyst that has not changed in the last 3 months. Likely benign and suggest follow-up in 1 year. If no change, yearly follow-up is suggested. 3. No fluid in the cul-de-sac. Dictated by: Adam Bennett MD 04/14/2024 09:19 Adam Bennett MD in [place] 04/14/2024 09:19
[2024-04-13 11:09] LABS: Appearance,Urine CLEAR (Clear); Bilirubin,Urine Negative (Negative); Blood, Urine Negative (Negative); Color,Urine YELLOW (Yellow); Glucose,Urine (UA) 3+ (Negative); Ketones,Urine Negative (Negative); Leukocyte Esterase,Urine Negative (Negative); Nitrate,Urine Negative (Negative); Protein,Urine Negative (Negative); Urobilinogen,Urine 0.2 EU/dl (0.2)
[2024-04-13 11:44] LABS: Albumin Level 4.1 g/dl (3.5-5.0); Anion Gap 10.4 mEq/L (5-15); Blood Urea Nitrogen 32 mg/dl (7-17); Calcium 9.1 mg/dl (8.4-10.2); Carbon Dioxide 29 mmol/L (22.0-30.0); Chloride 102 mmol/L (98-107); Estimated Glomerular Filt Rate 34 ml/min (>60); GFR (African American) 41 ML/MIN (>60); Glucose 115 mg/dl (74-100); Phosphorous 3.8 mg/dl (2.5-4.5); Potassium 3.4 mmoL/L (3.5-5.1); Sodium 138 mmol/L (136-145)
[2024-04-13 11:46] LABS: Creatinine,Urine Random 39 mg/dL (Not Estab.)
[2024-04-13 11:55] LABS: Intact Parathyroid Hormone 206.3 pg/mL (7.5-53.5)
[2024-04-13 12:00] LABS: 25-OH Vitamin D, Total 78.1 ng/mL (30-100)
[2024-04-13 12:35] LABS: NT Pro Brain Natriuretic Pep. 2370 pg/mL (0-125)
[2024-04-13 12:59] LABS: Troponin I < 0.01 ng/ml (0.00-0.034)
[2024-04-13 13:12] LABS: Squamous Epithelial Cell,Urine Occasional #/hpf (0-5)
== END 2024-04-13 23:59 | disposition home or self-care (01) ==
LOC: LAB 09:50 → RAD 09:53
PROVIDERS: Nurse Practitioner; Physician Assistant; PCP Physician Assistant; Visit Provider Physician Assistant
DX: R07.9 Chest pain, unspecified (principal); N83.202 Unspecified ovarian cyst, left side; N18.32 Chronic kidney disease, stage 3b; I25.10 Atherosclerotic heart disease of native coronary artery without angina pectoris; I48.0 Paroxysmal atrial fibrillation; I50.33 Acute on chronic diastolic (congestive) heart failure
CPT/HCPCS: 36415; 76830; 80069; 81001; 82306; 82570; 83880; 83970; 84156; 84484; 85027

== ENCOUNTER 2024-06-07 09:17 | Outpatient (CLI) | payer MEDICARE, MEDICAID, SELFPAY ==
[2024-06-07] MEDS: ALBUTEROL 0.083% 2.5 MG/3 ML NEB IH (09:39)
== END 2024-06-07 23:59 | disposition home or self-care (01) ==
LOC: RT 09:18
PROVIDERS: PCP Physician Assistant; Visit Provider Internal Medicine Pulmonary Disease
DX: R06.02 Shortness of breath (principal)
CPT/HCPCS: 94060; 94618; 94726; 94729

== ENCOUNTER 2024-06-19 09:54 | Outpatient (CLI) | payer MEDICARE, MEDICAID, SELFPAY ==
[2024-06-19 11:11] LABS: Chloride 103 mmol/L (98-107); Potassium 3.9 mmoL/L (3.5-5.1); Sodium 140 mmol/L (136-145)
[2024-06-19 11:14] LABS: Anion Gap 7.9 mEq/L (5-15); Blood Urea Nitrogen 39 mg/dl (7-17); Carbon Dioxide 33 mmol/L (22.0-30.0); Estimated Glomerular Filt Rate 26 ml/min (>60); GFR (African American) 32 ML/MIN (>60)
[2024-06-19 11:15] LABS: Calcium 9.5 mg/dl (8.4-10.2); Glucose 109 mg/dl (74-100)
== END 2024-06-19 23:59 | disposition home or self-care (01) ==
LOC: LAB 09:55
PROVIDERS: PCP Physician Assistant; Visit Provider Nurse Practitioner Family
DX: I25.10 Atherosclerotic heart disease of native coronary artery without angina pectoris (principal)
CPT/HCPCS: 36415; 80048

== ENCOUNTER 2025-01-03 11:26 | Outpatient (CLI) | payer MEDICARE, MEDICAID, SELFPAY ==
[2025-01-03 11:50] LABS: Hematocrit 38.2 % (37.0-47.0); Hemoglobin 12.5 g/dL (12.2-16.2); Immature Granulocytes % 0.2 %; Mean Corpuscular HGB Conc 32.7 g/dL (31.8-35.4); Mean Corpuscular Hemoglobin 30.6 pg (27.0-31.2); Mean Corpuscular Volume 93.4 fl (81-99); Nucleated Red Blood Cells % 0 %; Platelet Count 181 K/mm3 (142-424); Red Blood Count 4.09 M/mm3 (4.20-5.40); Red Cell Distribution Width-SD 46.0 fL; White Blood Count 8.2 K/mm3 (4.8-10.8)
[2025-01-03 12:20] LABS: Albumin Level 4.2 g/dl (3.5-5.0)
[2025-01-03 12:21] LABS: Chloride 101 mmol/L (98-107); Potassium 4.0 mmoL/L (3.5-5.1); Sodium 143 mmol/L (136-145)
[2025-01-03 12:23] LABS: Alanine Aminotransferase 20 U/L (12-78); Anion Gap 17.0 mEq/L (5-15); Aspartate Amino Transferase 27 U/L (14-36); Bilirubin,Unconjugated 0.9 mg/dL (0.0-1.1); Blood Urea Nitrogen 24 mg/dl (7-17); Carbon Dioxide 29 mmol/L (22.0-30.0); Creatinine,Serum 2.10 mg/dl (0.52-1.04); Estimated Glomerular Filt Rate 23 ml/min (>60); GFR (African American) 28 ML/MIN (>60); Total Protein,Serum 7.0 g/dl (6.3-8.2)
[2025-01-03 12:24] LABS: Alkaline Phosphatase 106 U/L (38-126); Bilirubin,Direct 0.0 mg/dl (0.0-0.4); Bilirubin,Indirect 0.9 mg/dL (0.0-0.9); Bilirubin,Total 0.9 mg/dl (0.2-1.3); Calcium 9.3 mg/dl (8.4-10.2); Cholesterol 102 mg/dl (140-200); Glucose 96 mg/dl (74-100); HDL Cholesterol 62 mg/dl (40-60); Magnesium 2.9 mg/dl (1.6-2.3); Triglycerides 63 mg/dl (30-150)
[2025-01-03 12:32] LABS: NT Pro Brain Natriuretic Pep. 2440 pg/mL (0-125)
[2025-01-03 12:54] LABS: Thyroid Stimulating Hormone 0.51 uIU/mL (0.465-4.68)
[2025-01-03 12:59] LABS: Free T4 (Free Thyroxine) 1.85 ng/dl (0.78-2.19)
--- OUTSIDE RECORDS SUMMARY | 2025-01-03 13:06 | XMS_ITS | CCD ---
Author Organization Unknown Care Team Providers Care Floor Worker Well Service Name Role Phone Unavailable Primary Care Provider Unavailabl e Unavailable Chronic Care Management Unavaila ble Summary Purpose DataExchange Insurance Providers Payer name Policy type / Coverage type Covered constitution party ID Effective Begin Date Effective End Date [facility] [id number] Unknown Unknown Family History Family History data not found Medication Administered No Medication Administered data Reason For Visit No Reason For Visit data Medical Equipment No Medical Equipment data Advance Directives No Advance Directive data
--- OUTSIDE RECORDS SUMMARY | 2025-01-03 13:06 | XMS_ITS | CCD ---
Author Organization Unknown Care Team Providers Care Employment Consultant Name Role Phone Unavailable Primary Care Provider Unavailabl e Unavailable Chronic Care Management Unavaila ble Summary Purpose DataExchange Insurance Providers Payer name Policy type / Coverage type Covered democrat ID Effective Begin Date Effective End Date [facility] [id number] Unknown Unknown Family History Family History data not found Medication Administered No Medication Administered data Reason For Visit No Reason For Visit data Medical Equipment No Medical Equipment data Advance Directives No Advance Directive data
--- OUTSIDE RECORDS SUMMARY | 2025-01-03 13:06 | XMS_ITS | CCD ---
Author Organization Unknown Care Team Providers Care Driver Manager Name Role Phone Unavailable Primary Care Provider Unavailabl e Unavailable Chronic Care Management Unavaila ble Summary Purpose DataExchange Insurance Providers Payer name Policy type / Coverage type Covered democrat ID Effective Begin Date Effective End Date [facility] [id number] Unknown Unknown Family History Family History data not found Medication Administered No Medication Administered data Reason For Visit No Reason For Visit data Medical Equipment No Medical Equipment data Advance Directives No Advance Directive data
--- OUTSIDE RECORDS SUMMARY | 2025-01-03 13:06 | XMS_ITS | CCD ---
Author Organization Unknown Care Team Providers Care Licensed Embalmer Supervisor Name Role Phone Unavailable Primary Care Provider Unavailabl e Unavailable Chronic Care Management Unavaila ble Summary Purpose DataExchange Insurance Providers Payer name Policy type / Coverage type Covered libertarian ID Effective Begin Date Effective End Date [facility] [id number] Unknown Unknown Family History Family History data not found Medication Administered No Medication Administered data Reason For Visit No Reason For Visit data Medical Equipment No Medical Equipment data Advance Directives No Advance Directive data
--- OUTSIDE RECORDS SUMMARY | 2025-01-03 13:06 | XMS_ITS | CCD ---
Author Organization Unknown Care Team Providers Care X Ray Equipment Servicer Name Role Phone Unavailable Primary Care Provider Unavailabl e Unavailable Chronic Care Management Unavaila ble Summary Purpose DataExchange Insurance Providers Payer name Policy type / Coverage type Covered constitution party ID Effective Begin Date Effective End Date [facility] [id number] Unknown Unknown Family History Family History data not found Medication Administered No Medication Administered data Reason For Visit No Reason For Visit data Medical Equipment No Medical Equipment data Advance Directives No Advance Directive data
--- OUTSIDE RECORDS SUMMARY | 2025-01-03 13:07 | XMS_ITS | CCD ---
Author Organization Unknown Care Team Providers Care Instructional Aide Name Role Phone Unavailable Primary Care Provider Unavailabl e Unavailable Chronic Care Management Unavaila ble Summary Purpose DataExchange Insurance Providers Payer name Policy type / Coverage type Covered democrat ID Effective Begin Date Effective End Date [facility] [id number] Unknown Unknown Family History Family History data not found Medication Administered No Medication Administered data Reason For Visit No Reason For Visit data Medical Equipment No Medical Equipment data Advance Directives No Advance Directive data
--- OUTSIDE RECORDS SUMMARY | 2025-01-03 13:07 | XMS_ITS | CCD ---
Author Organization Unknown Care Team Providers Care Manual Plate Filler Name Role Phone Unavailable Primary Care Provider Unavailabl e Unavailable Chronic Care Management Unavaila ble Summary Purpose DataExchange Insurance Providers Payer name Policy type / Coverage type Covered constitution party ID Effective Begin Date Effective End Date [facility] [place] [id number] Unknown Unknown Family History Family History data not found Medication Administered No Medication Administered data Reason For Visit No Reason For Visit data Medical Equipment No Medical Equipment data Advance Directives No Advance Directive data
--- OUTSIDE RECORDS SUMMARY | 2025-01-03 13:07 | XMS_ITS | CCD ---
Author Organization Unknown Care Team Providers Care Crop Production Advisor Name Role Phone Unavailable Primary Care Provider Unavailabl e Unavailable Chronic Care Management Unavaila ble Summary Purpose DataExchange Insurance Providers Payer name Policy type / Coverage type Covered green party ID Effective Begin Date Effective End Date [facility] [id number] Unknown Unknown Family History Family History data not found Medication Administered No Medication Administered data Reason For Visit No Reason For Visit data Medical Equipment No Medical Equipment data Advance Directives No Advance Directive data
--- OUTSIDE RECORDS SUMMARY | 2025-01-03 13:08 | XMS_ITS | CCD ---
Author Organization Unknown Care Team Providers Care Affiliate Manager Name Role Phone Unavailable Primary Care Provider Unavailabl e Unavailable Chronic Care Management Unavaila ble Summary Purpose DataExchange Insurance Providers Payer name Policy type / Coverage type Covered republican ID Effective Begin Date Effective End Date [facility] [id number] Unknown Unknown Family History Family History data not found Medication Administered No Medication Administered data Reason For Visit No Reason For Visit data Medical Equipment No Medical Equipment data Advance Directives No Advance Directive data
--- OUTSIDE RECORDS SUMMARY | 2025-01-03 13:08 | XMS_ITS | CCD ---
Author Organization Unknown Care Team Providers Care Resolution Specialist Name Role Phone Unavailable Primary Care Provider Unavailabl e Unavailable Chronic Care Management Unavaila ble Summary Purpose DataExchange Insurance Providers Payer name Policy type / Coverage type Covered democrat ID Effective Begin Date Effective End Date [facility] [id number] Unknown Unknown Family History Family History data not found Medication Administered No Medication Administered data Reason For Visit No Reason For Visit data Medical Equipment No Medical Equipment data Advance Directives No Advance Directive data
--- OUTSIDE RECORDS SUMMARY | 2025-01-03 13:08 | XMS_ITS | CCD ---
Author Organization Unknown Care Team Providers Care Senior Php Software Developer Name Role Phone Unavailable Primary Care Provider Unavailabl e Unavailable Chronic Care Management Unavaila ble Summary Purpose DataExchange Insurance Providers Payer name Policy type / Coverage type Covered democrat ID Effective Begin Date Effective End Date [facility] [id number] Unknown Unknown Family History Family History data not found Medication Administered No Medication Administered data Reason For Visit No Reason For Visit data Medical Equipment No Medical Equipment data Advance Directives No Advance Directive data
--- OUTSIDE RECORDS SUMMARY | 2025-01-03 13:08 | XMS_ITS | CCD ---
Author Organization Unknown Care Team Providers Care Keeler Polygraph Operator Name Role Phone Unavailable Primary Care Provider Unavailabl e Unavailable Chronic Care Management Unavaila ble Summary Purpose DataExchange Insurance Providers Payer name Policy type / Coverage type Covered constitution party ID Effective Begin Date Effective End Date [facility] [id number] Unknown Unknown Family History Family History data not found Medication Administered No Medication Administered data Reason For Visit No Reason For Visit data Medical Equipment No Medical Equipment data Advance Directives No Advance Directive data
--- OUTSIDE RECORDS SUMMARY | 2025-01-03 13:09 | XMS_ITS | CCD ---
Author Organization Unknown Care Team Providers Care Environmental Field Technician Name Role Phone Unavailable Primary Care Provider Unavailabl e Unavailable Chronic Care Management Unavaila ble Summary Purpose DataExchange Insurance Providers Payer name Policy type / Coverage type Covered republican ID Effective Begin Date Effective End Date [facility] [id number] Unknown Unknown Family History Family History data not found Medication Administered No Medication Administered data Reason For Visit No Reason For Visit data Medical Equipment No Medical Equipment data Advance Directives No Advance Directive data
--- OUTSIDE RECORDS SUMMARY | 2025-01-03 13:10 | XMS_ITS | CCD ---
Author Organization Unknown Care Team Providers Care Sociocultural Anthropology Professor Name Role Phone Unavailable Primary Care Provider Unavailabl e Unavailable Chronic Care Management Unavaila ble Summary Purpose DataExchange Insurance Providers Payer name Policy type / Coverage type Covered green party ID Effective Begin Date Effective End Date [facility] [id number] Unknown Unknown Family History Family History data not found Medication Administered No Medication Administered data Reason For Visit No Reason For Visit data Medical Equipment No Medical Equipment data Advance Directives No Advance Directive data
== END 2025-01-03 23:59 | disposition home or self-care (01) ==
LOC: LAB 11:26
PROVIDERS: PCP Physician Assistant; Visit Provider Physician Assistant
DX: I50.32 Chronic diastolic (congestive) heart failure (principal); I25.10 Atherosclerotic heart disease of native coronary artery without angina pectoris; I48.0 Paroxysmal atrial fibrillation; E78.2 Mixed hyperlipidemia; I95.2 Hypotension due to drugs
CPT/HCPCS: 36415; 80048; 80061; 80076; 83735; 83880; 84439; 84443; 85025